=== PATIENT | female | born 1940 | race Caucasian/White ===

== ENCOUNTER 2024-06-13 12:09 | Outpatient (CLI) | payer MEDICARE, SELFPAY ==
--- NOTE | ~2024-06-13 | XR_ITS ---
EXAMINATION: XR chest 2V Exam Date/Time: 06/13/2024 12:52 CDT HISTORY: CHEST PAINS Comparison: None. RESULT: Lines, tubes, and devices: Right axillary clips. Lungs and pleura: Emphysematous/senescent changes. Azygos lobe.. Cardiomediastinal silhouette: Stable. Other: No acute upper abdominal finding. Exaggerated thoracic kyphosis. Osteopenia. Mild anterior we dge deformity, likely T12. 9 mm retrolisthesis at the thoracolumbar junction, likely L1-2. IMPRESSION: No acute cardiopulmonary process. Mild wedge compression deformity in the lower thoracic spine, likely T12, correlate for pain/tenderne ss. 9 mm retrolisthesis at the thoracolumbar junction, likely L1-2. Reviewed, dictated and finalized at [facility]. IMPRESSION: No acute cardiopulmonary process. Mild wedge compression deformity in the lower thoracic spine, likely T12, corre late for pain/tenderness. 9 mm retrolisthesis at the thoracolumbar junction, likely L1-2.
[2024-06-13 14:25] LABS: Basophils Absolute Auto 0.1 K/mm3 (0.0-0.1); Basophils Percent Auto 1.4 % (0.2-1.2); Eosinophils Absolute Auto 0.2 K/mm3 (0-0.3); Eosinophils Percent Auto 2.5 % (0-4.4); Hematocrit 41.8 % (37.0-47.0); Hemoglobin 14.1 g/dL (12.0-15.0); Immature Granulocyte Absolute 0.01 K/mm3 (0.00-0.031); Immature Granulocyte Percent A 0.1 % (0-0.5); Lymphocytes Absolute Auto 1.92 K/mm3 (0.9-3.2); Lymphocytes Percent Auto 22.6 % (18.3-44.2); Mean Corpuscular HGB Conc 33.7 g/dl (32-36); Mean Corpuscular Hemoglobin 32.6 pg (26-34); Mean Corpuscular Volume 96.5 fl (80-100); Mean Platelet Volume 9.7 fl (7.4-10.4); Monocytes Absolute Auto 0.8 K/mm3 (0.1-0.6); Monocytes Percent Auto 9.8 % (2.6-8.5); Neutrophils Absolute Auto 5.4 K/mm3 (1.3-6.7); Neutrophils Percent Auto 63.6 % (45.5-73.1); Platelet Count Result 272 k/mm3 (150-375); Red Blood Count 4.33 M/mm3 (4.2-5.4); Red Cell Distribution Width 13.1 % (11.5-14.5); White Blood Count 8.5 K/mm3 (4.5-10.0)
[2024-06-13 14:57] LABS: Alanine Aminotransferase 24 U/L (6-35); Albumin Level 4.3 g/dL (3.5-5.1); Alkaline Phosphatase 84 U/L (38-126); Anion Gap 8 mmol/L (4-12); Aspartate Amino Transferase 31 U/L (14-36); Bilirubin,Total 0.5 mg/dL (0.2-1.3); Blood Urea Nitrogen 25 mg/dL (7-17); Calcium 9.1 mg/dL (8.4-10.2); Carbon Dioxide 29 mmol/L (22-30); Chloride 102 mmol/L (98-107); Cholesterol 144 mg/dL (0-200); Estimated Glomerular Filt Rate 60; Glucose 96 mg/dL (65-110); HDL Direct 71 mg/dL; Potassium 4.3 mmol/L (3.4-5.0); Sodium 139 mmol/L (137-145); Triglycerides 68 mg/dL (<150)
[2024-06-13 15:08] LABS: LDL Cholesterol Direct 52 mg/dL
[2024-06-13 15:35] LABS: Free T4 Free Thyroxine 1.49 ng/mL (0.78-2.19)
[2024-06-14 10:59] LABS: Triiodothyronine T3 Free 3.3 pg/mL (2.3-4.2)
== END 2024-06-13 12:10 | disposition home or self-care (01) ==
PROVIDERS: PCP Internal Medicine; Visit Provider Internal Medicine
DX: R07.9 Chest pain, unspecified (principal); I10 Essential (primary) hypertension
CPT/HCPCS: 36415; 71046; 80053; 80061; 83735; 84439; 84443; 84481; 85025

== ENCOUNTER 2025-01-10 12:13 | Outpatient (CLI) | payer MEDICARE, SELFPAY ==
--- NOTE | ~2025-01-10 | XR_ITS ---
Clinical Indication: Cough PA and lateral views of the chest: Comparison: 06/13/2024 Findings: The lungs are clear, without evidence of focal consolidation or pleural effusion. Possible COPD. Cardiomediastinal silhouette is within normal limits. Bones and soft tissues are stable. Impression: Clear lungs. Possible COPD. Reviewed, dictated and finalized at location . Impression: Clear lungs. Possible COPD.
--- OUTSIDE RECORDS SUMMARY | 2025-01-10 13:38 | XMS_ITS | Data Portability ---
Author Organization [place] - [facility] Vick Chacon C Address [address] [place] [address] Care Team Providers Care Blood Bank Business Manager Name Role Phone RUEL ANDREW Primary Care Provider Assessment Encounter Date Assessment Date Assessment LastModified by Organization Details LastModified Time 02/29/2024 02/29/2024 Obtain old records continue medications if she runs into problems in the bereavement process she will let me know but again she has a very supportive family. She does not want to be is sent to counseling or anything like that she says she has all the support she needs right now and she will let me know if that changes she will follow-up with me in 3 to 4 months [email or web address] Not available 03/12/2024 17:10:35 06/06/2024 06/06/2024 EKG shows a sinus rhythm with PVCs questionable long QT no acute changes. Blood work Lexiscan echo Holter monitor follow few weeks [email or web address] Not available 06/19/2024 22:12:17 07/04/2024 07/04/2024 echo no regional wall motion abnormalities no further chest pain she does not want to pursue cardiac stress testing we will continue current therapy she will follow up in 3 months [email or web address] Not available 07/10/2024 17:33:57 10/03/2024 10/03/2024 continue current therapy we did discuss immunizations she will consider follow up in 4 months [email or web address] Not available 11/04/2024 21:09:44 Plan of Treatment Reminders Order Date Submit Date Provider Last Modified By Organization Details Last Modified Time Details Appointments ANY 15 2024 11:00Ney Andrew MD Not available Not available Not available Lab CMP, serum or plasma 2023 024 [facility], [address], [place], [address], 06/13/2024 21:27:05 CBC w/ auto diff 2023 024 [facility], [address], [place], [address], 06/13/2024 17:56:51 magnesium , serum or plasma 2023 024 [place] [address] [facility], [address], [place], [address], 06/21/2024 12:13:05 lipid panel, serum 2023 024 [email or web address], [address], [place], [address], 06/20/2024 13:48:31 TSH, serum or plasma [address] (Lab), [address] [place] [address], [phone], 06/21/2024 12:12:31 T4, free, serum 2023 024 [facility] (Lab), [address] [place] [address], [phone], 06/14/2024 12:34:25 T3, free, serum or plasma 2023 024 [facility] (Lab), [facility] [address], [address], 06/14/2024 12:16:22 Referral None recorded. Procedures lexiscan cardiolit e stress test (PROC) 2023 024 [facility], [address], [place] [address], [place], [address], 07/05/2024 09:12:38 Surgeries None recorded. Imaging US, echocardi ogram 2023 024 [place] [facility], [address], [place], [address], 06/13/2024 14:03:23 holter monitor - 2wk holter 2023 024 [email or web address] [facility], [address], [place], [address], 07/25/2024 22:41:52 XR, chest 2023 024 [facility] (Imaging), [address], [place], [address], 06/13/2024 17:34:16 electroca rdiogram 2023 024 [email or web address] In-Office Order, Internal Use Only DO Not Attach Compendium DO Not Attach Compendium, Do Not Delete/merge, [id number] 06/06/2024 17:17:21 MAMMO, screening , digital, bilateral 2016 017 [facility] ([facility]), [address] [place] [address], [address], 07/01/2017 23:23:00 Medication Orders Trulance 3 mg tablet 2016 017 [facility], [address] [place], [address], 02/29/2024 14:21:00 dicyclomi ne 10 mg capsule 2016 017 [facility], [address] [place], [address], 02/29/2024 14:20:23 Patient TargetsNo targets recorded. Patient Instructions Encounter Date Encounter Id Patient Instructions Last Modified By Organization Details Last Modified Time 02/11/2017 [id number] irritable bowel syndrome: care instructions [email or web address] Not available 02/11/2017 16:53:03 mammogram: about this test [email or web address] Not available 02/11/2017 14:43:04 mammogram screening patient instructions [email or web address] Not available 02/11/2017 14:43:04 10/03/2024 [id number] A healthy lifestyle: care instructions [email or web address] Not available 10/03/2024 14:55:00 Reason for Referral None Reported. Results Created Date Observation Date Name Description Value Unit Range Abnormal Flag Note LastModifiedBy Organization Detail LastModifiedTime 12/05/19 22 12/05/2021 CBC W Auto Diffe renti al panel - Blood hematocrit hemat ocrit Not Available Not Available 12/14/2024 13:14:39 12/05/19 22 12/05/2021 CBC W Auto Diffe renti al panel - Blood white blood cells white blood cells Not Available Not Available 12/14/2024 13:14:39 12/05/19 22 12/05/2021 CBC W Auto Diffe renti al panel - Blood red blood cells red blood cells Not Available Not Available 12/14/2024 13:14:39 12/05/19 22 12/05/2021 CBC W Auto Diffe renti al panel - Blood hemoglobin hemog lobin Not Available Not Available 12/14/2024 13:14:39 12/05/19 22 12/05/2021 CBC W Auto Diffe renti al panel - Blood mean red cell volume mean red cell volum e Not Available Not Available 12/14/2024 13:14:39 12/05/19 22 12/05/2021 CBC W Auto Diffe renti al panel - Blood mean red cell hemoglobin mean red cell hemog lobin Not Available Not Available 12/14/2024 13:14:39 12/05/19 22 12/05/2021 CBC W Auto Diffe renti al panel - Blood mean RBC HGB concentratio n mean RBC HGB estephanie ntrat ion Not Available Not Available 12/14/2024 13:14:39 12/05/19 22 12/05/2021 CBC W Auto Diffe renti al panel - Blood red cell distribution width red cell distr ibuti on width Not Available Not Available 12/14/2024 13:14:39 12/05/19 22 12/05/2021 CBC W Auto Diffe renti al panel - Blood platelets plate lets Not Available Not Available 12/14/2024 13:14:39 12/05/19 22 12/05/2021 CBC W Auto Diffe renti al panel - Blood mean platelet volume mean plate let volum e Not Available Not Available 12/14/2024 13:14:39 12/05/19 22 12/05/2021 CBC W Auto Diffe renti al panel - Blood neutrophils neutr ophil s Not Available Not Available 12/14/2024 13:14:39 12/05/19 22 12/05/2021 CBC W Auto Diffe renti al panel - Blood lymphocytes lymph ocyte s Not Available Not Available 12/14/2024 13:14:39 12/05/19 22 12/05/2021 CBC W Auto Diffe renti al panel - Blood monocytes monoc ytes Not Available Not Available 12/14/2024 13:14:39 12/05/19 22 12/05/2021 CBC W Auto Diffe renti al panel - Blood eosinophils eosin ophil s Not Available Not Available 12/14/2024 13:14:39 12/05/19 22 12/05/2021 CBC W Auto Diffe renti al panel - Blood basophils basop hils Not Available Not Available 12/14/2024 13:14:39 12/05/19 22 12/05/2021 CBC W Auto Diffe renti al panel - Blood immature granulocytes immat ure granu locyt es Not Available Not Available 12/14/2024 13:14:39 12/05/19 22 12/05/2021 CBC W Auto Diffe renti al panel - Blood neutrophils, absolute count neutr ophil s, absol [place] count Not Available Not Available 12/14/2024 13:14:39 12/05/19 22 12/05/2021 CBC W Auto Diffe renti al panel - Blood lymphocytes, absolute count lymph ocyte s, absol tohono [place] count Not Available Not Available 12/14/2024 13:14:39 12/05/19 22 12/05/2021 CBC W Auto Diffe renti al panel - Blood monocytes, absolute count monoc ytes, absol tohono [place] count Not Available Not Available 12/14/2024 13:14:39 12/05/19 22 12/05/2021 CBC W Auto Diffe renti al panel - Blood eosinophils, absolute count eosin ophil s, absol tohono [place] count Not Available Not Available 12/14/2024 13:14:39 12/05/19 22 12/05/2021 CBC W Auto Diffe renti al panel - Blood basophils, absolute count high basop hils, absol [place] count Not Available Not Available 12/14/2024 13:14:39 12/05/19 22 12/05/2021 CBC W Auto Diffe renti al panel - Blood immature granulocytes ,absolute immat ure granu locyt es,ab solut e Not Available Not Available 12/14/2024 13:14:39 12/05/19 22 12/05/2021 CBC W Auto Diffe renti al panel - Blood nucleated red blood cells nucle ated red blood cells Not Available Not Available 12/14/2024 13:14:39 12/05/19 22 12/05/2021 CBC W Auto Diffe renti al panel - Blood NRBC# NRBC# Not Available Not Availa ble 12/14/2024 13:14:39 12/05/19 22 12/05/2021 25-Hy droxy vitam in D3+25 -Hydr oxyvi tamin D2 [Mass /volu me] in Serum or Plasm a [id number] h Not Available Not Available 12/14/2024 13:14:38 12/05/19 22 12/05/2021 Lipid 1995 panel - Serum or Plasm a cholesterol high jose stero l Not Available Not Available 12/14/2024 13:14:38 12/05/19 22 12/05/2021 Lipid 1996 panel - Serum or Plasm a triglyceride s trigl yceri mei Not Available Not Available 12/14/2024 13:14:38 12/05/19 22 12/05/2021 Lipid 1995 panel - Serum or Plasm a HDL cholesterol HDL jose stero l Not Available Not Available 12/14/2024 13:14:38 12/05/19 22 12/05/2021 Lipid 1995 panel - Serum or Plasm a cholesterol in LDL [mass/volume ] in serum or plasma high LDL jose stero l, calcu lated Not Available Not Available 12/14/2024 13:14:38 12/05/19 22 12/05/2021 Compr ehens fredis metab olic 1999 panel - Serum or Plasm a carbon dioxide carbo n dioxi de Not Available Not Available 12/14/2024 13:14:38 12/05/19 22 12/05/2021 Compr ehens fredis metab olic 2000 panel - Serum or Plasm a sodium low sodiu m Not Available Not Available 12/14/2024 13:14:38 12/05/19 22 12/05/2021 Compr ehens fredis metab olic 2000 panel - Serum or Plasm a potassium potas sium Not Available Not Available 12/14/2024 13:14:38 12/05/19 22 12/05/2021 Compr ehens fredis metab olic 1999 panel - Serum or Plasm a chloride chlor jany Not Available Not Available 12/14/2024 13:14:38 12/05/19 22 12/05/2021 Compr ehens fredis metab olic 2000 panel - Serum or Plasm a agap low agap Not Available Not Availa ble 12/14/2024 13:14:38 12/05/19 22 12/05/2021 Compr ehens fredis metab olic 2000 panel - Serum or Plasm a glucose high gluco se Not Available Not Available 12/14/2024 13:14:38 12/05/19 22 12/05/2021 Compr ehens fredis metab olic 2000 panel - Serum or Plasm a BUN BUN Not Available Not Availa ble 12/14/2024 13:14:38 12/05/19 22 12/05/2021 Compr ehens fredis metab olic 2000 panel - Serum or Plasm a creatinine creat inine Not Available Not Available 12/14/2024 13:14:38 12/05/19 22 12/05/2021 Compr ehens fredis metab olic 2000 panel - Serum or Plasm a GFR >60 GFR Not Available Not Availa ble 12/14/2024 13:14:38 12/05/19 22 12/05/2021 Compr ehens fredis metab olic 2000 panel - Serum or Plasm a alkaline phosphatase alkal ine phosp hatas e Not Available Not Available 12/14/2024 13:14:38 12/05/19 22 12/05/2021 Compr ehens fredis metab olic 2000 panel - Serum or Plasm a alanine aminotransfe rase herbert ne amino trans feras e Not Available Not Available 12/14/2024 13:14:38 12/05/19 22 12/05/2021 [facility] 1999 panel - Serum or Plasm a aspartate aminotransfe rase aspar sullivan amino trans feras e Not Available Not Available 12/14/2024 13:14:38 12/05/19 22 12/05/2021 [facility] 1999 panel - Serum or Plasm a bilirubin, total bilir ubin, total Not Available Not Available 12/14/2024 13:14:38 12/05/19 22 12/05/2021 [facility] 1999 panel - Serum or Plasm a calcium calci um Not Available Not Available 12/14/2024 13:14:38 12/05/19 22 12/05/2021 [facility] 1999 panel - Serum or Plasm a total protein total prote in Not Available Not Available 12/14/2024 13:14:38 12/05/19 22 12/05/2021 [facility] 1999 panel - Serum or Plasm a albumin album in Not Available Not Available 12/14/2024 13:14:38 12/05/19 22 12/05/2021 [facility] 2000 panel - Serum or Plasm a globulin globu amie Not Available Not Available 12/14/2024 13:14:38 12/05/19 22 12/05/2021 [facility] 1999 panel - Serum or Plasm a A/G ratio A/G ratio Not Available Not Available 12/14/2024 13:14:38 06/03/20 22 06/03/2022 CBC W Auto Diffe renti al panel - Blood hematocrit hemat ocrit Not Available Not Available 12/14/2024 13:14:39 06/03/20 22 06/03/2022 CBC W Auto Diffe renti al panel - Blood white blood cells white blood cells Not Available Not Available 12/14/2024 13:14:39 06/03/20 22 06/03/2022 CBC W Auto Diffe renti al panel - Blood red blood cells red blood cells Not Available Not Available 12/14/2024 13:14:39 06/03/20 22 06/03/2022 CBC W Auto Diffe renti al panel - Blood hemoglobin hemog lobin Not Available Not Available 12/14/2024 13:14:39 06/03/20 22 06/03/2022 CBC W Auto Diffe renti al panel - Blood mean red cell volume mean red cell volum e Not Available Not Available 12/14/2024 13:14:39 06/03/20 22 06/03/2022 CBC W Auto Diffe renti al panel - Blood mean red cell hemoglobin mean red cell hemog lobin Not Available Not Available 12/14/2024 13:14:39 06/03/20 22 06/03/2022 CBC W Auto Diffe renti al panel - Blood mean platelet volume mean plate let volum e Not Available Not Available 12/14/2024 13:14:39 06/03/20 22 06/03/2022 CBC W Auto Diffe renti al panel - Blood mean RBC HGB concentratio n mean RBC HGB estephanie ntrat ion Not Available Not Available 12/14/2024 13:14:39 06/03/20 22 06/03/2022 CBC W Auto Diffe renti al panel - Blood red cell distribution width red cell distr ibuti on width Not Available Not Available 12/14/2024 13:14:39 06/03/20 22 06/03/2022 CBC W Auto Diffe renti al panel - Blood platelets plate lets Not Available Not Available 12/14/2024 13:14:39 06/03/20 22 06/03/2022 CBC W Auto Diffe renti al panel - Blood neutrophils neutr ophil s Not Available Not Available 12/14/2024 13:14:39 06/03/20 22 06/03/2022 CBC W Auto Diffe renti al panel - Blood lymphocytes lymph ocyte s Not Available Not Available 12/14/2024 13:14:39 06/03/20 22 06/03/2022 CBC W Auto Diffe renti al panel - Blood monocytes monoc ytes Not Available Not Available 12/14/2024 13:14:39 06/03/20 22 06/03/2022 CBC W Auto Diffe renti al panel - Blood eosinophils eosin ophil s Not Available Not Available 12/14/2024 13:14:39 06/03/20 22 06/03/2022 CBC W Auto Diffe renti al panel - Blood basophils basop hils Not Available Not Available 12/14/2024 13:14:39 06/03/20 22 06/03/2022 CBC W Auto Diffe renti al panel - Blood immature granulocytes immat ure granu locyt es Not Available Not Available 12/14/2024 13:14:39 06/03/20 22 06/03/2022 CBC W Auto Diffe renti al panel - Blood neutrophils, absolute count neutr ophil s, absol [place] count Not Available Not Available 12/14/2024 13:14:39 06/03/20 22 06/03/2022 CBC W Auto Diffe renti al panel - Blood lymphocytes, absolute count lymph ocyte s, absol tohono [place] count Not Available Not Available 12/14/2024 13:14:39 06/03/20 22 06/03/2022 CBC W Auto Diffe renti al panel - Blood monocytes, absolute count monoc ytes, absol tohono [place] count Not Available Not Available 12/14/2024 13:14:39 06/03/20 22 06/03/2022 CBC W Auto Diffe renti al panel - Blood eosinophils, absolute count eosin ophil s, absol [place] count Not Available Not Available 12/14/2024 13:14:39 06/03/20 22 06/03/2022 CBC W Auto Diffe renti al panel - Blood basophils, absolute count high basop hils, absol [place] count Not Available Not Available 12/14/2024 13:14:39 06/03/20 22 06/03/2022 CBC W Auto Diffe renti al panel - Blood immature granulocytes ,absolute immat ure granu locyt es,ab solut e Not Available Not Available 12/14/2024 13:14:39 06/03/20 22 06/03/2022 CBC W Auto Diffe renti al panel - Blood nucleated red blood cells nucle ated red blood cells Not Available Not Available 12/14/2024 13:14:39 06/03/20 22 06/03/2022 CBC W Auto Diffe renti al panel - Blood NRBC# NRBC# Not Available Not Availa ble 12/14/2024 13:14:39 08/09/20 22 06/03/2022 Compr ehens fredis metab olic 2000 panel - Serum or Plasm a GFR >60 GFR Not Available Not Availa ble 12/14/2024 13:14:39 06/03/20 22 06/03/2022 Compr ehens fredis metab olic 2000 panel - Serum or Plasm a sodium sodiu m Not Available Not Available 12/14/2024 13:14:39 06/03/20 22 06/03/2022 Compr ehens fredis metab olic 2000 panel - Serum or Plasm a potassium potas sium Not Available Not Available 12/14/2024 13:14:39 06/03/20 22 06/03/2022 Compr ehens fredis metab olic 2000 panel - Serum or Plasm a chloride chlor jany Not Available Not Available 12/14/2024 13:14:39 06/03/20 22 06/03/2022 Compr ehens fredis metab olic 2000 panel - Serum or Plasm a carbon dioxide carbo n dioxi de Not Available Not Available 12/14/2024 13:14:39 06/03/20 22 06/03/2022 Compr ehens fredis metab olic 2000 panel - Serum or Plasm a anion gap anion gap Not Available Not Available 12/14/2024 13:14:39 06/03/20 22 06/03/2022 Compr ehens fredis metab olic 2000 panel - Serum or Plasm a glucose high gluco se Not Available Not Available 12/14/2024 13:14:39 06/03/20 22 06/03/2022 Compr ehens fredis metab olic 2000 panel - Serum or Plasm a BUN BUN Not Available Not Availa ble 12/14/2024 13:14:39 06/03/20 22 06/03/2022 Compr ehens fredis metab olic 2000 panel - Serum or Plasm a creatinine creat inine Not Available Not Available 12/14/2024 13:14:39 06/03/20 22 06/03/2022 Compr ehens fredis metab olic 2000 panel - Serum or Plasm a alkaline phosphatase alkal ine phosp hatas e Not Available Not Available 12/14/2024 13:14:39 06/03/20 22 06/03/2022 Compr ehens fredis metab olic 2000 panel - Serum or Plasm a alanine aminotransfe rase herbert ne amino trans feras e Not Available Not Available 12/14/2024 13:14:39 06/03/20 22 06/03/2022 [facility] 2000 panel - Serum or Plasm a aspartate aminotransfe rase aspar sullivan amino trans feras e Not Available Not Available 12/14/2024 13:14:39 06/03/20 22 06/03/2022 [facility] [place] [id number] panel - Serum or Plasm a bilirubin, total bilir ubin, total Not Available Not Available 12/14/2024 13:14:39 06/03/20 22 06/03/2022 [facility] [place] [id number] panel - Serum or Plasm a calcium calci um Not Available Not Available 12/14/2024 13:14:39 06/03/20 22 06/03/2022 [place] [address] panel - Serum or Plasm a total protein total prote in Not Available Not Available 12/14/2024 13:14:39 06/03/20 22 06/03/2022 [place] [address] panel - Serum or Plasm a albumin album in Not Available Not Available 12/14/2024 13:14:39 06/03/20 22 06/03/2022 [facility] [place] [id number] panel - Serum or Plasm a globulin globu amie Not Available Not Available 12/14/2024 13:14:39 06/03/20 22 06/03/2022 [place] [address] panel - Serum or Plasm a A/G ratio A/G ratio Not Available Not Available 12/14/2024 13:14:39 06/03/20 22 06/03/2022 Lipid 1995 panel - Serum or Plasm a cholesterol low jose stero l Not Available Not Available 12/14/2024 13:14:39 06/03/20 22 06/03/2022 Lipid 1996 panel - Serum or Plasm a triglyceride s trigl yceri mei Not Available Not Available 12/14/2024 13:14:39 06/03/20 22 06/03/2022 Lipid 1996 panel - Serum or Plasm a HDL cholesterol HDL jose stero l Not Available Not Available 12/14/2024 13:14:39 06/03/20 22 06/03/2022 Lipid 1996 panel - Serum or Plasm a cholesterol in LDL [mass/volume ] in serum or plasma LDL jose stero l, calcu lated Not Available Not Available 12/14/2024 13:14:39 05/28/20 23 05/28/2023 Compr ehens fredis metab olic 1999 panel - Serum or Plasm a sodium sodiu m Not Available Not Available 12/14/2024 13:14:39 05/28/20 23 05/28/2023 Compr ehens fredis metab olic 2000 panel - Serum or Plasm a potassium potas sium Not Available Not Available 12/14/2024 13:14:39 05/28/20 23 05/28/2023 Compr ehens fredis metab olic 2000 panel - Serum or Plasm a chloride chlor jany Not Available Not Available 12/14/2024 13:14:39 05/28/20 23 05/28/2023 Compr ehens fredis metab olic 2000 panel - Serum or Plasm a carbon dioxide carbo n dioxi de Not Available Not Available 12/14/2024 13:14:39 05/28/20 23 05/28/2023 Compr ehens fredis metab olic 2000 panel - Serum or Plasm a anion gap low anion gap Not Available Not Available 12/14/2024 13:14:39 05/28/20 23 05/28/2023 Compr ehens fredis metab olic 2000 panel - Serum or Plasm a glucose high gluco se Not Available Not Available 12/14/2024 13:14:39 05/28/20 23 05/28/2023 Compr ehens fredis metab olic 2000 panel - Serum or Plasm a BUN BUN Not Available Not Availa ble 12/14/2024 13:14:39 05/28/20 23 05/28/2023 Compr ehens fredis metab olic 2000 panel - Serum or Plasm a creatinine creat inine Not Available Not Available 12/14/2024 13:14:39 05/28/20 23 05/28/2023 Compr ehens fredis metab olic 2000 panel - Serum or Plasm a GFR >60 GFR Not Available Not Availa ble 12/14/2024 13:14:39 05/28/20 23 05/28/2023 Compr ehens fredis metab olic 2000 panel - Serum or Plasm a alkaline phosphatase alkal ine phosp hatas e Not Available Not Available 12/14/2024 13:14:39 05/28/20 23 05/28/2023 Compr ens fredis metab [facility] 2000 panel - Serum or Plasm a alanine aminotransfe rase herbert ne amino trans feras e Not Available Not Available 12/14/2024 13:14:39 05/28/20 23 05/28/2023 Compr ens fredis metab [facility] 2000 panel - Serum or Plasm a aspartate aminotransfe rase aspar sullivan amino trans feras e Not Available Not Available 12/14/2024 13:14:39 05/28/20 23 05/28/2023 [facility] 2000 panel - Serum or Plasm a bilirubin, total bilir ubin, total Not Available Not Available 12/14/2024 13:14:39 05/28/20 23 05/28/2023 Compr ens fredis metab [facility] 2000 panel - Serum or Plasm a calcium calci um Not Available Not Available 12/14/2024 13:14:39 05/28/20 23 05/28/2023 Compr ens fredis metab [facility] 2000 panel - Serum or Plasm a total protein total prote in Not Available Not Available 12/14/2024 13:14:39 05/28/20 23 05/28/2023 [facility] 2000 panel - Serum or Plasm a albumin album in Not Available Not Available 12/14/2024 13:14:39 05/28/20 23 05/28/2023 Compr ens [facility]red[facility] 2000 panel - Serum or Plasm a globulin globu amie Not Available Not Available 12/14/2024 13:14:39 05/28/20 23 05/28/2023 Compr ens fredis metab [facility] 2000 panel - Serum or Plasm a A/G ratio A/G ratio Not Available Not Available 12/14/2024 13:14:39 05/28/20 23 05/28/2023 Lipid 1996 panel - Serum or Plasm a cholesterol jose stero l Not Available Not Available 12/14/2024 13:14:39 05/28/20 23 05/28/2023 Lipid 1996 panel - Serum or Plasm a triglyceride s trigl yceri mei Not Available Not Available 12/14/2024 13:14:39 05/28/20 23 05/28/2023 Lipid 1995 panel - Serum or Plasm a HDL cholesterol HDL jose stero l Not Available Not Available 12/14/2024 13:14:39 05/28/20 23 05/28/2023 Lipid 1995 panel - Serum or Plasm a cholesterol in LDL [mass/volume ] in serum or plasma LDL jose stero l, calcu lated Not Available Not Available 12/14/2024 13:14:39 05/28/20 23 05/28/2023 CBC W Auto Diffe renti al panel - Blood white blood cells white blood cells Not Available Not Available 12/14/2024 13:14:39 05/28/20 23 05/28/2023 CBC W Auto Diffe renti al panel - Blood red blood cells red blood cells Not Available Not Available 12/14/2024 13:14:39 05/28/20 23 05/28/2023 CBC W Auto Diffe renti al panel - Blood hemoglobin hemog lobin Not Available Not Available 12/14/2024 13:14:39 05/28/20 23 05/28/2023 CBC W Auto Diffe renti al panel - Blood hematocrit hemat ocrit Not Available Not Available 12/14/2024 13:14:39 05/28/20 23 05/28/2023 CBC W Auto Diffe renti al panel - Blood mean red cell volume mean red cell volum e Not Available Not Available 12/14/2024 13:14:39 05/28/20 23 05/28/2023 CBC W Auto Diffe renti al panel - Blood mean red cell hemoglobin mean red cell hemog lobin Not Available Not Available 12/14/2024 13:14:39 05/28/20 23 05/28/2023 CBC W Auto Diffe renti al panel - Blood mean RBC HGB concentratio n mean RBC HGB estephanie ntrat ion Not Available Not Available 12/14/2024 13:14:39 05/28/20 23 05/28/2023 CBC W Auto Diffe renti al panel - Blood red cell distribution width red cell distr ibuti on width Not Available Not Available 12/14/2024 13:14:39 05/28/20 23 05/28/2023 CBC W Auto Diffe renti al panel - Blood platelets plate lets Not Available Not Available 12/14/2024 13:14:39 05/28/20 23 05/28/2023 CBC W Auto Diffe renti al panel - Blood mean platelet volume mean plate let volum e Not Available Not Available 12/14/2024 13:14:39 05/28/20 23 05/28/2023 CBC W Auto Diffe renti al panel - Blood neutrophils neutr ophil s Not Available Not Available 12/14/2024 13:14:39 05/28/20 23 05/28/2023 CBC W Auto Diffe renti al panel - Blood lymphocytes lymph ocyte s Not Available Not Available 12/14/2024 13:14:39 05/28/20 23 05/28/2023 CBC W Auto Diffe renti al panel - Blood monocytes monoc ytes Not Available Not Available 12/14/2024 13:14:39 05/28/20 23 05/28/2023 CBC W Auto Diffe renti al panel - Blood eosinophils eosin ophil s Not Available Not Available 12/14/2024 13:14:39 05/28/20 23 05/28/2023 CBC W Auto Diffe renti al panel - Blood basophils basop hils Not Available Not Available 12/14/2024 13:14:39 05/28/20 23 05/28/2023 CBC W Auto Diffe renti al panel - Blood immature granulocytes immat ure granu locyt es Not Available Not Available 12/14/2024 13:14:39 05/28/20 23 05/28/2023 CBC W Auto Diffe renti al panel - Blood neutrophils, absolute count neutr ophil s, absol [place] count Not Available Not Available 12/14/2024 13:14:39 05/28/20 23 05/28/2023 CBC W Auto Diffe renti al panel - Blood lymphocytes, absolute count lymph ocyte s, absol [place] count Not Available Not Available 12/14/2024 13:14:39 05/28/20 23 05/28/2023 CBC W Auto Diffe renti al panel - Blood monocytes, absolute count monoc ytes, absol [place] count Not Available Not Available 12/14/2024 13:14:39 05/28/20 23 05/28/2023 CBC W Auto Diffe renti al panel - Blood eosinophils, absolute count eosin ophil s, absol [place] count Not Available Not Available 12/14/2024 13:14:39 05/28/20 23 05/28/2023 CBC W Auto Diffe renti al panel - Blood basophils, absolute count high basop hils, absol [place] count Not Available Not Available 12/14/2024 13:14:39 05/28/20 23 05/28/2023 CBC W Auto Diffe renti al panel - Blood immature granulocytes ,absolute immat ure granu locyt es,ab solut e Not Available Not Available 12/14/2024 13:14:39 05/28/20 23 05/28/2023 CBC W Auto Diffe renti al panel - Blood nucleated red blood cells nucle ated red blood cells Not Available Not Available 12/14/2024 13:14:39 05/28/20 23 05/28/2023 CBC W Auto Diffe renti al panel - Blood NRBC# NRBC# Not Available Not Availa ble 12/14/2024 13:14:39 07/01/20 17 07/01/2017 MAMMO , scree delio, digit al, bilat eral No observ ation record ed. [email or web address] Not Available 08/13 11:32:31 06/06/20 24 elect rocar diogr am No observ ation record ed. DEL[facility]Y In-Office Order Internal Use Only DO Not Attach Compendium DO Not Attach Compendium, Do Not Delete/merge, [id number] 06/06/2024 14:44:48 06/06/20 24 06/06/2024 [facility] rocar diogr am No observ ation record ed. DELROY In-Office Order Internal Use Only DO Not Attach Compendium DO Not Attach Compendium, Do Not Delete/merge, [id number] 06/06/2024 14:56:29 06/13/20 24 06/13/2024 , [facility] ardio gram No observ ation record ed. [facility] [address], [place], [address], 06/17/2024 11:30:01 06/13/20 24 06/13/2024 XR, chest No observ ation record ed. [facility] [address], [place], [address], 06/17/2024 11:30:02 06/13/20 24 06/13/2024 XR, chest No observ ation record ed. [facility] [address], [place], [address], 06/17/2024 11:30:03 07/25/20 24 06/13/2024 jan r monit or No observ ation record ed. [facility] [address], [place], [address], 07/25/2024 12:17:02 01/11/20 25 01/10/2025 XR, chest No observ ation record ed. [facility] [address] [facility] [address], [place], [address], 01/10/2025 14:08:55 Result Notes None recorded. Problems Name Problem SNOMED Code Status Onset Date Resolution Date Notes Provider Name and Address Organization Details Recorded Time Atrophic vaginitis 79317822 Active Pj Montez null, [place] - [facility] 6 16:26:10 Menopausal syndrome 633394090 Active Pj [place]z [place] [facility] 6 16:26:10 Osteopenia 475066058 Active Pj Montez [place] [facility] 6 16:26:10 Essential hypertension 69173504 Active 2023 Ruel Andrew MD Attn: John dejesus,[address] [facility], [place], [address], [place] - [facility] 4 17:09:56 Anxiety 47726362 Active 2023 Ruel Andrew MD Attn: John dejesus,[address] [facility], [place], [address], [place] [facility] 4 17:09:57 Insomnia 435942224 Active 2023 Ruel Andrew MD Attn: John dejesus,[address] [facility], [place], [address], [place] - [facility] 4 17:09:58 Dyslipidemia 242040556 Active 2023 Ruel Andrew MD Attn: John dejesus,[address] , [place], [address], [place] - [facility] 4 17:10:01 Chronic rhinitis 01447429 Active 2023 Ruel Andrew MD Attn: John dejesus,[address] , [place], [address], [place] - [facility] 4 17:10:02 Palpitations 80439680 Active 2023 Jose George [place] null, [place] [facility] 4 14:44:14 Chest pain 79329041 Active 2023 Jose George [place] [facility] 4 14:44:15 Chronic constipation 837375900 Active Maggie Emery LPN [place] [facility] 6 16:29:42 Problem Notes None recorded. Procedures Surgical History Date Name Laterality Status Provider Name and Address Organization Details Recorded Time 3 Most Recent Mammogram completed Bella Price [place] [facility] 02/13/2016 11:47:55 1 Date of Last Pap Smear completed Bella Price [place] [facility] 11/28/2014 13:27:59 2 Breast Surgery completed Brianna Monaco [place] - [facility] 02/13/2016 12:04:32 Imaging Results Imaging Date Name Status LastModified by Organization Details LastModified Time 07/01/2017 MAMMO, screening, digital, bilateral completed [email or web address] Information not available 08/13/2017 11:32:31 06/06/2024 electrocardiogram completed DELROY In-Offi ce Order Internal Use Only DO Not Attach Compendium DO Not Attach Compendium, Do Not Delete/merge, [id number] 06/06/2024 14:44:48 06/06/2024 electrocardiogram completed DELROY In-Offi ce Order Internal Use Only DO Not Attach Compendium DO Not Attach Compendium, Do Not Delete/merge, [id number] 06/06/2024 14:56:29 06/13/2024 US, echocardiogram completed [facility] [address], [place], [address], 06/17/2024 11:30:01 06/13/2024 XR, chest completed [facility] [address] [facility] [address], [place], [address], 06/17/2024 11:30:02 06/13/2024 XR, chest completed [facility] [address], [place], [address], 06/17/2024 11:30:03 06/13/2024 holter monitor completed [facility] [address], [place], [address], 07/25/2024 12:17:02 01/10/2025 XR, chest active [facility] [address], [place], [address], 01/10/2025 14:08:55 Procedure Notes None recorded. Medical Equipment None Reported. Allergies Allergen ID Allergen Name Allergen Category Reaction Reaction Severity Criticality Documentation Date Start Date Code Code System Note Provider Name and Address Organization Details Recorded Time Substance with sulfonami de structure and antibacte rial mechanism of action (substanc e) medicatio n hives severe Not available 11/28/2014 [id number] SNOMED Not Available Not Available Not Available Medications Name Sig Start Date Stop Date Status Note LastModified by Organization Details LastModified Time hydrocodone 7.5 mg-ibuprofe n 200 mg tablet 02/11 completed Not Available Not Available Not Available trazodone 50 mg tablet Take 1 tablet by mouth nightly 2024 active Not Available Not Available Not Avai lable azithromyci n 250 mg tablet Take 1 dose pk by oral route as directed. 01/06 completed Not Available Not Available Not Available hydrocodone 5 mg-acetamin ophen 325 mg tablet TAKE 1 TABLET BY MOUTH ONCE DAILY NEEDED FOR PAIN 02/28 completed Not Available Not Available Not Available lisinopril 20 mg tablet TAKE 1 TABLET BY MOUTH IN THE MORNING AND 1/2 (ONE-HALF ) IN THE EVENING 2024 active Not Available Not Available Not Avai lable prednisone 20 mg tablet Take 2 tablets every day by oral route for 5 days. active Not Available Not Available No t Available ciprofloxac in 250 mg tablet TAKE 1 TABLET BY MOUTH TWICE DAILY FOR 7 DAYS 02/28 completed Not Available Not Available Not Available amlodipine 5 mg tablet Take 1 tablet by mouth once daily 2024 active Not Available Not Available Not Avai lable ciprofloxac in 500 mg tablet 02/11 completed Not Available Not Available Not Available alprazolam 0.5 mg tablet TAKE 1 TABLET BY MOUTH THREE TIMES DAILY 2024 active Not Available Not Available Not Avai lable Fosamax 70 mg tablet Take 1 tablet every week by oral route. 02/11 completed Not Available Not Available Not Available diclofenac sodium 75 mg tablet,izabel yed release 02/11 completed Not Available Not Available Not Available montelukast 10 mg tablet Take 1 tablet by mouth once daily 2024 active Not Available Not Available Not Avai lable cefuroxime axetil 500 mg tablet 02/11 completed Not Available Not Available Not Available methylpredn isolone 4 mg tablets in a dose pack 02/11 completed Not Available Not Available Not Available albuterol sulfate HFA 90 mcg/actuati on aerosol inhaler Inhale 2 puffs every 4 hours by inhalatio n route as needed, for wheezing. active Not Available Not Available No t Available cefdinir 300 mg capsule 02/11 completed Not Available Not Available Not Available fluticasone propionate 50 mcg/actuati on nasal spray,suspe nsion 02/11 completed Not Available Not Available Not Available dicyclomine 10 mg capsule Take 1 capsule 3 times a day by oral route as needed. 02/28 completed Not Available Not Available Not Available Estrace 0.01% (0.1 mg/gram) vaginal cream Insert 1 g twice a week by vaginal route. 02/11 completed Not Available Not Available Not Available rosuvastati n 10 mg tablet Take 1 tablet by mouth once daily 2024 active Not Available Not Available Not Avai lable nitrofurant oin monohydrate /macrocryst als 100 mg capsule 02/11 completed Not Available Not Available Not Available Zostavax (PF) 19,400 unit/0.65 mL subcutaneou s suspension 02/11 completed Not Available Not Available Not Available Linzess 145 mcg capsule Take 1 capsule every day by oral route for 30 days. 02/11 completed Not Available Not Available Not Available Caltrate plus D 600 mg (carbonate) -20 mcg (800 unit) chewable tablet Take 1 tablet twice a day by oral route. 02/28 completed Not Available Not Available Not Available Trulance 3 mg tablet Take 1 tablet every day by oral route. 02/28 completed Not Available Not Available Not Available Paxlovid 300 mg (150 mg x 2)-100 mg tablets in a dose pack TAKE 3 TABLETS TOGETHER (TWO 150 MG NIRMATREL VIR TABLETS AND ONE 100 MG RITONAVIR TABLET) BY MOUTH TWICE DAILY FOR 5 DAYS. 02/28 completed Not Available Not Available Not Available Vitals Date Recorded Body height Body mass index (BMI) Body weight Heart rate Oxygen saturation Oxygen saturation in Arterial blood by Pulse oximetry Systolic blood pressure Diastolic blood pressure Provider Name and Address Organization Details Last Updated DateTime 4 156.21 cm 26.4 kg/m2 57108.4 8 g 81 /min 98 % 98 % 124 mm[Hg] 72 mm[Hg] Marianna Rodriguez [place] - [facility] 4 14:26:01 Date Recorded Body height Body mass index (BMI) Body weight Heart rate Oxygen saturation Oxygen saturation in Arterial blood by Pulse oximetry Systolic blood pressure Diastolic blood pressure Provider Name and Address Organization Details Last Updated DateTime 4 156.21 cm 27.2 kg/m2 87218.9 2 g 105 /min 96 % 96 % 104 mm[Hg] 80 mm[Hg] Mariya Simmons [place] - [facility] 4 12:23:47 Date Recorded Body height Body mass index (BMI) Body weight Heart rate Oxygen saturation Oxygen saturation in Arterial blood by Pulse oximetry Systolic blood pressure Diastolic blood pressure Provider Name and Address Organization Details Last Updated DateTime 4 156.21 cm 27.9 kg/m2 72982.1 4 g 89 /min 99 % 99 % 126 mm[Hg] 78 mm[Hg] Mariya Iris MELONY [facility] 4 12:08:54 Date Recorded Body height Body mass index (BMI) Body weight Heart rate Oxygen saturation Oxygen saturation in Arterial blood by Pulse oximetry Systolic blood pressure Diastolic blood pressure Provider Name and Address Organization Details Last Updated DateTime 4 156.21 cm 27.8 kg/m2 01051.7 g 91 /min 97 % 97 % 118 mm[Hg] 70 mm[Hg] Sandra Ibarra MA [facility] 4 11:52:36 Date Recorded Body height Body weight Body mass index (BMI) Provider Name and Address Organization Details Last Updated DateTime 02/11/2017 157.48 cm 36571.45 g 27.6 kg/m2 Brianna MELONY Monaco [facility] 02/11/2017 12:32:05 Social History Question Answer Notes LastModified by Organizat ion Details LastModified Time Tobacco Smoking Status Never Smoker Bella MELONY Price [facility] 11/28/2014 13:27:58 Do You Have An Advance Directive? No Information n ot available 11/28/2014 What Is Your Level Of Alcohol Consumption? None Information not available 11/28/2014 Are You Blind Or Do You Have Difficulty Seeing? No Information n ot available 02/29/2024 Is Blood Transfusion Acceptable In An Emergency? Yes Information not available 11/28/2014 What Is Your Level Of Caffeine Consumption? Occasional Information not available 11/28/2014 How Much Tobacco Do You Chew? None Information not available 11/28/2014 In The 14 Days Before Symptom Onset, Have You Had Close Contact With A Laboratory-confirm ed COVID-19 While That Case Was Ill? No Information n ot available 10/03/2024 In The 14 Days Before Symptom Onset, Have You Had Close Contact With A Person Who Is Under Investigation For COVID-19 While That Person Was Ill? No Information not available 10/03/2024 Have You Been To An Area Known To Be High Risk For COVID-19? No Information not available 10/03/2024 Are You Currently Employed? No Information not available 11/28/2014 Are You Deaf Or Do You Have Serious Difficulty Hearing? Yes Information not available 02/29/2024 What Type Of Diet Are You Following? REGULAR Information n ot available 11/28/2014 Which Illicit Or Recreational Drugs Have You Used? Denies Information not available 02/13/2016 Education 10 Information no t available 11/28/2014 Are There Any Guns Present In Your Home? No Information not available 06/06/2024 Live Alone Or With Others? With Others Information not available 11/28/2014 What Was The Date Of Your Most Recent Tobacco Screening? 10/03/2024 Information not available 10/03/2024 How Many Children Do You Have? 4 Information not available 11/28/2014 Performs Monthly Self-breast Exam? Yes Information no t available 11/28/2014 What Is Your Relationship Status? Information not available 02/29/2024 Seat Belts Used Routinely Yes Information not available 11/28/2014 Are You Sexually Active? No Information not available 11/28/2014 Do You Have Smoke And Carbon Monoxide Detectors In Your Home? Yes Information not available 06/06/2024 How Much Tobacco Do You Smoke? No Information not available 11/28/2014 General Stress Level Low Information not available 11/28/2014 Do You Feel Stressed (tense, Restless, Nervous, Or Anxious, Or Unable To Sleep At Night)? [id number] Information not available 02/29/2024 Do You Use Any Illicit Or Recreational Drugs? No Information not available 10/03/2024 Do You Use Sunscreen Routinely? Yes Information not available 11/28/2014 How Many Years Have You Smoked Tobacco? 0 [email or web address] Information not available 02/13/2016 Sex: Female Functional Status Question Answer Note LastModified by Organizat ion Details LastModified Time Are you able to care for yourself? Yes Information not available 02/29/2024 What is your exercise level? Occasional Information not available 11/28/2014 Mental Status None recorded. Family History Relationship Description Onset Age of this Age Resolved Age Notes LastModified by Organization Details LastModified Time Mother Malignant neoplasm of female breast 75 [email or web address] Not available 02/12 16:26:16 Sister Malignant neoplasm of female breast 76 [email or web address] Not available 2023 17:16:16 Medical History Condition Response Other N High Blood Pressure N Breast Cancer Y Thyroid Problems N Kidney or Bladder Problems N GI Problems N Depression N Blood Clots N Lung Disease N Acne N Breast Problem N Eating Disorder N Anemia N Anesthesia Complications N Headaches/Migraines N Anxiety Disorder N Diabetes N Ovarian Cancer N Muscle, Joint, or Bone Problems N Blood Transfusions N Seizures/Epilepsy N Polyps N Infertility N Acid Reflux (GERD) N Cancer Y Abuse/Domestic Violence N Asthma N Endometriosis N High Cholesterol N Hepatitis N Liver Disease N Heart Disease N Pre-Eclampsia N Osteoporosis N Gynecological History Statement/Question Response Abnormal Pap N On BCP's at Conception? N STIs/STDs Y HPV Vaccine N Most Recent Mammogram 09/06/2013 Age at Menarche 14 Current Control Method None Age at First Child 19 If Post Menopausal, Age at Menopause 53 Sexually Active? N Menses Monthly N Date of Last Pap Smear 07/16/2011 Sexual Problems? Y LMP Approximate Desired Control Method None Obstetrics History GPAL:G 4 P 4 0 0 4 Type Value Full Term 4 Living 4 Total 4 Past Encounters Encounter ID Performer Location Encounter Start Date Encounter Closed Date Diagnosis/Indication Diagnosis SNOMED-CT Code Diagnosis ICD10 Code Diagnosis Note [id number] JONATHAN Banegas ([employer] MANAGER) [address] [place] [address] 11/28/2014 12:50:52 11/28/2014 14:25:42 Gynecologic examination 72165001 Atrophic vaginitis 10308710 Menopausal syndrome 777284111 Personal h istory of primary malignant neoplasm of breast 333223668 [id number] IKER Yan ([employer]ORTG[employer] OPERATIONS MANAGER) [address] [place] [address] 02/13/2016 11:10:45 02/13/2016 16:31:00 Personal history of primary malignant neoplasm of breast 967497117 Z85.3 Chronic constipation 236 142923 K59.00 K59.09 [id number] Pj Self ([employer] OPERATIONS MANAGER) [address] [place] [address] 02/11/2017 11:40:15 02/12/2017 14:48:32 Screening mammography 52833302 Z12.31 personal hx of breast cancer right side Personal h istory of primary malignant neoplasm of breast 512174558 Z85.3 Irritable bowel syndrome 47542891 K58.9 Chronic id iopathic constipation 05266054 K59.04 [id number] Ruel Andrew MD [facility] [employer] [address] [place] [address] 02/29/2024 14:01:25 02/29/2024 15:21:04 Essential hypertension 04252136 I10 Anxiety 29937792 F41.9 Insomnia 014973181 G47.0 0 Dyslipidemia 465924795 E 78.5 Chronic rhinitis 3356152 6 J31.0 [id number] Ruel Andrew MD [facility] [employer] [address] [employer] [place] [place] [address] 06/06/2024 11:50:23 06/06/2024 13:42:06 Palpitations 14868811 R00.2 Anxiety 93566196 F41.9 Chest pain 90753150 R07. 9 Essential hypertension 67190517 I10 [id number] Ruel Andrew MD [facility] [employer] [address] [place] [address] 07/04/2024 11:14:58 07/04/2024 13:14:58 Body mass index 25-29 - overweight 475600983 Z68.25 27.9 BMI Essential hypertension 18588240 I10 Anxiety 27963572 F41.9 [id number] Ruel Andrew MD [facility] [employer] [address] [place] [address] 10/03/2024 11:01:29 10/03/2024 13:29:46 Body mass index 25-29 - overweight 248438074 Z68.27 Overweight 364859153 E66 .3 Dyslipidemia 997897209 E 78.5 Essential hypertension 41065935 I10 Anxiety 56390789 F41.9 Insomnia 760726039 G47.0 0 Health Concerns Section Related Observation LastModified by Organization Detai ls LastModified Time None Recorded Concern Status LastModified by Organization Details LastModified Time None Recorded Advance Directives Directive N: Payers Encounter Date Sequence Insurance Name Policy Number Policy Mtz Covered Member ID Mtz Member ID Guarantor Name 02/11/2017 1 [facility] (MEDICARE REPLACEMENT HMO) [id number] Fay Corrales Foutch [id number] Fay Foutch 02/29/2024 1 [employer] (MEDICARE REPLACEMENT/A DVANTAGE - HMO) [id number] Fay Foutch [id number] Fay Foutch 06/06/2024 1 [employer] (MEDICARE REPLACEMENT/A DVANTAGE - HMO) [id number] Fay Foutch [id number] Fay Foutch 07/04/2024 1 [employer] (MEDICARE REPLACEMENT/A DVANTAGE - HMO) [id number] Fay Foutch [id number] Fay Foutch 10/03/2024 1 [employer] (MEDICARE REPLACEMENT/A DVANTAGE - HMO) [id number] Fay Foutch [id number] Fay Foutch Notes Date Note Type Note Provider Name and Address Organization Details Recorded Time 02/11/2017 text/html Breast ProblemsReported bypatient.Quality:asym ptomatic; no bloody discharge; no brown discharge; no milky discharge; no yellow-clear discharge; no yellow-green discharge; non-tender; improving; no mass Context:prior mammogram normal; performs breast self-examination; no breast implants; no family history of breast cancer; no history of breast cancer; no radiation treatment; no chemotherapy; no cancer; no previous biopsies; no miscarriages; recent MRI normal; lymph node status negative Modifying Factors:no recent change in exercise habits; no recent changes in weight; no recent changes in diet; no recent changes in medication dosage of hormone replacement therapy Aggravating Factors:none Associated Symptoms:no fever; no chills; no breast reddening; no nipple discharge; no sore nipples; no nipple inversion; breasts feel normal; no breast swelling; no arm pain; no arm swelling; no chest pain; no malaise; no breast lump; no change in breast skin 77yo here for annual clinical breast exam. Pj Herrmann [facility], [place] - [place] 02/11/2017 16:02:45 02/29/2024 text/html 84-year-old come s in for follow-up of medical problems anxiety somewhat high in the past several months she has a very supportive family no SI or HI but it is at its difficult time for hypertension no headache or dizziness. Rhinitis Singulair helps from time to time dyslipidemia takes her rosuvastatin and tries to watch her diet insomnia has done well with trazodone without side effects Ruel Andrew MD Attn: Accounting,[address] [facility], [place], [address], [facility] - [facility] 03/12/2024 17:11:13 06/06/2024 text/html hypertension no headache no dizziness. She has had some atypical chest pain had some palpitations over the past several weeks. Does not feel like she is going to pass out does not get sweaty nothing seems to be particularly consistent with what brings it on. Anxiety has been high Ruel Andrew MD Attn: Accounting,[address] [facility], [place], [address], [facility] - SI 06/19/2024 22:12:35 07/04/2024 text/html short interval follow-up no chest pain Ruel Andrew MD Attn: Accounting,[address] [facility], [place], [address], [facility] - SI 07/10/2024 17:34:42 10/03/2024 text/html insomnia doing f ine on current medical regimen without side effects hypertension blood pressure well controlled anxiety chronic doing well on current medical regimen. Her rhinitis is doing good dyslipidemia taking the rosuvastatin there is no side effects of any of the medications Ruel Andrew MD Attn: Accounting,[address] [facility], [place], [address], [facility] - SI 11/04/2024 21:10:04 OBGyn Episode Ob Episode Information Episode Created Date Number of Fetuses Patient Bloodtype Patient rh Status Prepregnancy Weight lbs Domestic Partner Domestic Partner Phone Father Name [employer] Status 02/12/20 17 1 CLOSED Fetus Data First Name Last Name Admitted to NICU Weight (g) Sex Living Outcome Pediatric Complications Fetus ID Race Codes Race Delivery Type M Full Term [id number] Vaginal Domenic Calculation Initial Domenic Date Initial Exam Date Initial Exam Provider Initial Ultrasound Date Last Menstrual Period Date Ultra Sound Weeks Gestation 0 Eighteen To Twenty Week Domenic Update Ultra Sound Date Fundal Height At Umbil Quickening Date Ultra Sound Latest Weeks Gestation Final Domenic Confirmed By Final Domenic Confirmed Date Final Domenic Date Ultra Sound Latest Days Gestation 0 0 Menstrual History Last Menstrual Date Menses Monthly On Bcp Conception Prior Menses Frequency Hcg Plus Date Menarche Onset Age Delivery Information Delivery Date Delivery Type Labor Anesthesia Weeks Gestation Incision Type Labor Labor Length Hrs Delivered By Post Complications Tubal Sterilization Discharge Date Comments 9 Discharge Information Feeding Method Contraceptive Method Maternal HG B and HCT Levels Ob Episode Information Episode Created Date Number of Fetuses Patient Bloodtype Patient rh Status Prepregnancy Weight lbs Domestic Partner Domestic Partner Phone Father Name [employer] Status 02/12/20 17 1 CLOSED Fetus Data First Name Last Name Admitted to NICU Weight (g) Sex Living Outcome Pediatric Complications Fetus ID Race Codes Race Delivery Type M Full Term [id number] Vaginal Domenic Calculation Initial Domenic Date Initial Exam Date Initial Exam Provider Initial Ultrasound Date Last Menstrual Period Date Ultra Sound Weeks Gestation 0 Eighteen To Twenty Week Domenic Update Ultra Sound Date Fundal Height At Umbil Quickening Date Ultra Sound Latest Weeks Gestation Final Domenic Confirmed By Final Domenic Confirmed Date Final Domenic Date Ultra Sound Latest Days Gestation 0 0 Menstrual History Last Menstrual Date Menses Monthly On Bcp Conception Prior Menses Frequency Hcg Plus Date Menarche Onset Age Delivery Information Delivery Date Delivery Type Labor Anesthesia Weeks Gestation Incision Type Labor Labor Length Hrs Delivered By Post Complications Tubal Sterilization Discharge Date Comments 4 Discharge Information Feeding Method Contraceptive Method Maternal HG B and HCT Levels Ob Episode Information Episode Created Date Number of Fetuses Patient Bloodtype Patient rh Status Prepregnancy Weight lbs Domestic Partner Domestic Partner Phone Father Name [employer] Status 02/12/20 17 1 CLOSED Fetus Data First Name Last Name Admitted to NICU Weight (g) Sex Living Outcome Pediatric Complications Fetus ID Race Codes Race Delivery Type M Full Term [id number] Vaginal Domenic Calculation Initial Domenic Date Initial Exam Date Initial Exam Provider Initial Ultrasound Date Last Menstrual Period Date Ultra Sound Weeks Gestation 0 Eighteen To Twenty Week Domenic Update Ultra Sound Date Fundal Height At Umbil Quickening Date Ultra Sound Latest Weeks Gestation Final Domenic Confirmed By Final Domenic Confirmed Date Final Domenic Date Ultra Sound Latest Days Gestation 0 0 Menstrual History Last Menstrual Date Menses Monthly On Bcp Conception Prior Menses Frequency Hcg Plus Date Menarche Onset Age Delivery Information Delivery Date Delivery Type Labor Anesthesia Weeks Gestation Incision Type Labor Labor Length Hrs Delivered By Post Complications Tubal Sterilization Discharge Date Comments 7 Discharge Information Feeding Method Contraceptive Method Maternal HG B and HCT Levels Ob Episode Information Episode Created Date Number of Fetuses Patient Bloodtype Patient rh Status Prepregnancy Weight lbs Domestic Partner Domestic Partner Phone Father Name [employer] Status 02/12/20 17 1 CLOSED Fetus Data First Name Last Name Admitted to NICU Weight (g) Sex Living Outcome Pediatric Complications Fetus ID Race Codes Race Delivery Type F Full Term [id number] Vaginal Domenic Calculation Initial Domenic Date Initial Exam Date Initial Exam Provider Initial Ultrasound Date Last Menstrual Period Date Ultra Sound Weeks Gestation 0 Eighteen To Twenty Week Domenic Update Ultra Sound Date Fundal Height At Umbil Quickening Date Ultra Sound Latest Weeks Gestation Final Domenic Confirmed By Final Domenic Confirmed Date Final Domenic Date Ultra Sound Latest Days Gestation 0 0 Menstrual History Last Menstrual Date Menses Monthly On Bcp Conception Prior Menses Frequency Hcg Plus Date Menarche Onset Age Delivery Information Delivery Date Delivery Type Labor Anesthesia Weeks Gestation Incision Type Labor Labor Length Hrs Delivered By Post Complications Tubal Sterilization Discharge Date Comments 2 Discharge Information Feeding Method Contraceptive Method Maternal HG B and HCT Levels
== END 2025-01-10 12:14 | disposition home or self-care (01) ==
PROVIDERS: PCP Internal Medicine; Visit Provider Internal Medicine
DX: R05.3 Chronic cough (principal)
CPT/HCPCS: 71046

== ENCOUNTER 2025-02-06 11:53 | Outpatient (CLI) | payer MEDICARE, SELFPAY ==
--- NOTE | ~2025-02-06 | XR_ITS ---
Left Knee Technique: AP, lateral, and sunrise views were obtained. Clinical History: Pain Findings: No fracture or dislocation is seen. There is mild to moderate tricompartmental degenerative change. Soft tissues are unremarkable. No joint effusion is seen. 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 Reviewed, dictated and finalized at location . 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
[2025-02-06 12:46] LABS: Basophils Absolute Auto 0.1 K/mm3 (0.0-0.1); Basophils Percent Auto 1.5 % (0.2-1.2); Eosinophils Absolute Auto 0.1 K/mm3 (0-0.3); Eosinophils Percent Auto 1.7 % (0-4.4); Hematocrit 42.9 % (37.0-47.0); Immature Granulocyte Absolute 0.01 K/mm3 (0.00-0.031); Immature Granulocyte Percent A 0.1 % (0-0.5); Lymphocytes Absolute Auto 1.72 K/mm3 (0.9-3.2); Lymphocytes Percent Auto 23.1 % (18.3-44.2); Mean Corpuscular HGB Conc 32.6 g/dl (32-36); Mean Corpuscular Volume 94.9 fl (80-100); Mean Platelet Volume 9.5 fl (7.4-10.4); Monocytes Absolute Auto 0.8 K/mm3 (0.1-0.6); Neutrophils Absolute Auto 4.7 K/mm3 (1.3-6.7); Neutrophils Percent Auto 62.6 % (45.5-73.1); Platelet Count Result 282 k/mm3 (150-375); Red Blood Count 4.52 M/mm3 (4.2-5.4); Red Cell Distribution Width 13.1 % (11.5-14.5); White Blood Count 7.5 K/mm3 (4.5-10.0)
[2025-02-06 13:12] LABS: Alanine Aminotransferase 21 U/L (6-35); Albumin Level 4.4 g/dL (3.5-5.1); Alkaline Phosphatase 88 U/L (38-126); Anion Gap 7 mmol/L (4-12); Aspartate Amino Transferase 31 U/L (14-36); Bilirubin,Total 0.7 mg/dL (0.2-1.3); Blood Urea Nitrogen 19 mg/dL (7-17); Carbon Dioxide 28 mmol/L (22-30); Chloride 102 mmol/L (98-107); Cholesterol 146 mg/dL (0-200); Estimated Glomerular Filt Rate 57; Glucose 103 mg/dL (65-110); HDL Direct 73 mg/dL; Potassium 4.3 mmol/L (3.4-5.0); Sodium 137 mmol/L (137-145); Triglycerides 90 mg/dL (<150)
--- OUTSIDE RECORDS SUMMARY | 2025-02-06 13:21 | XMS_ITS | Data Portability ---
Author Organization [place] - [facility] Vick Chacon C Address [address] [place] [address] Care Team Providers Care Senior Ecologist Name Role Phone RUEL ANDREW Primary Care [...] with me in 3 to 4 months [email or web address] Not available 03/12/2024 17:10:35 06/06/2024 06/06/2024 EKG shows a sinus rhythm with PVCs questionable long QT no acute changes. Blood work Lexiscan echo Holter monitor follow few weeks [email or web address] Not available 06/19/2024 22:12:17 07/04/2024 07/04/2024 echo no regional wall motion abnormalities no further chest pain she does not want to pursue cardiac stress testing we will continue current therapy she will follow up in 3 months [email or web address] Not available 07/10/2024 17:33:57 10/03/2024 10/03/2024 continue current therapy we did discuss immunizations she will consider follow up in 4 months Not available 11/04/2024 21:09:44 Plan of Treatment Reminders Order Date Submit Date Provider Last Modified By Organization Details Last Modified Time Details Appointments ANY 15 2024 11:00A Bobby Andrew MD Not available Not available Not available ANY 15 2024 10:15A Bobby Andrew MD Not available Not available Not available Lab CMP, serum or plasma 2023 024 [employer] [facility], [address], [place], [address], 06/13/2024 21:27:05 CBC w/ auto diff 2023 024 [facility], [address], [place], [address], 06/13/2024 17:56:51 magnesium , serum or plasma 2023 024 [place] [address] [facility], [address], [place], [address], 06/21/2024 12:13:05 lipid panel, serum 2023 024 [employer] [facility], [address], [place], [address], 06/20/2024 13:48:31 TSH, serum or plasma [address] (Lab), [address] [place] [address], [address], 06/21/2024 12:12:31 T4, free, serum 2023 024 [facility] (Lab), [address] [place] [address], [address], 06/14/2024 12:34:25 T3, free, serum or plasma 2023 024 [facility] (Lab), [address] [place] [address], [address], 06/14/2024 12:16:22 Referral None recorded. Procedures lexiscan cardiolit e stress test (PROC) 2023 024 [facility], [address], [place], [address], 07/05/2024 09:12:38 Surgeries None recorded. Imaging US, echocardi ogram 2023 024 [facility], [address], [place], [address], 06/13/2024 14:03:23 holter monitor - 2wk holter 2023 024 [email or web address], [address], [place], [address], 07/25/2024 22:41:52 XR, chest 2023 024 [facility] (Imaging), [address], [place], [address], 06/13/2024 17:34:16 electroca rdiogram 2023 024 [email or web address] In-Office Order, Internal Use Only DO Not Attach Compendium DO Not Attach Compendium, Do Not Delete/merge, [id number] 06/06/2024 17:17:21 Medication Orders None recorded. Patient TargetsNo targets recorded. Patient Instructions Encounter Date Encounter Id Patient Instructions Last Modified By Organization Details Last Modified Time 10/03/2024 [id number] A healthy lifestyle: care instructions [email or web address] Not available 10/03/2024 14:55:00 Reason for Referral None Reported. Results Created Date Observation Date Name Description Value Unit Range Abnormal Flag Note LastModifiedBy Organization Detail LastModifiedTime 06/06/20 elect rocar diogr am No observ ation record ed. [facility] In-Office Order Internal Use Only DO Not Attach Compendium DO Not Attach Compendium, Do Not Delete/merge, [id number] 06/06/2024 14:44:48 06/06/20 24 06/06/2024 elect rocar diogr am No observ ation record ed. [facility] In-Office Order Internal Use Only DO Not Attach Compendium DO Not Attach Compendium, Do Not Delete/merge, [id number] 06/06/2024 14:56:29 06/13/20 24 06/13/2024 , [facility] ardio gram No observ ation record ed. [facility] [address], [place], [address], 06/17/2024 11:30:01 06/13/20 24 06/13/2024 XR, chest No observ ation record ed. [address], [place], [address], 06/17/2024 11:30:02 06/13/20 24 06/13/2024 XR, chest No observ ation record ed. [address], [place], [address], 06/17/2024 11:30:03 07/25/20 24 06/13/2024 jan r monit or No observ ation record ed. [facility] [address], [place], [address], 07/25/2024 12:17:02 01/11/20 25 01/10/2025 XR, chest No observ ation record ed. [address], [place], [address], 01/11/2025 16:52:47 01/11/20 25 01/10/2025 XR, chest No observ ation record ed. [address], [place], [address], 01/11/2025 16:52:47 02/07/20 25 02/06/2025 XR, knee No observ ation record ed. [address], [place], [address], 02/06/2025 13:51:26 Result Notes None recorded. Problems Name Problem SNOMED Code Status Onset Date Resolution Date Notes Provider Name and Address Organization Details Recorded Time Atrophic vaginitis 47621211 Active MINOO Ellison - [facility] 6 16:26:10 Menopausal syndrome 993506367 Active Pj Herrmann null, [place] - [facility] 6 16:26:10 Osteopenia 075629701 Active Pj [place] [facility] 6 16:26:10 Essential hypertensio n 39213185 Active 2023 Ruel Andrew MD Attn: John oleg,[address] [facility], [place], [address], [place] [facility] 4 17:09:56 Anxiety 50326454 Active 2023 Ruel Andrew MD Attn: John g,[address] [facility], [place], [address], [place] [facility] 4 17:09:57 Insomnia 265002156 Active 2023 Ruel Andrew MD Attn: John oleg,[address] [facility], [place], [address], [place] [facility] 4 17:09:58 Dyslipidemi a 010597768 Active 2023 Ruel Andrew MD Attn: John g,[address] [facility], [place], [address], [place] [facility] 4 17:10:01 Chronic rhinitis 94354727 Active 2023 Ruel Andrew MD Attn: John dejesus,[address] [facility], [place], [address], [place] [facility] 4 17:10:02 Palpitation s 93791120 Active 2023 Jose George [place] [facility] 4 14:44:14 Chest pain 56696633 Active 2023 Jose George [place] [facility] 4 14:44:15 Pain of left knee joint 1775830973984 07 Active 2024 Jose George [place] [facility] 5 12:34:43 Chronic constipatio n 693710871 Active Maggie Emery LPN null, [place] - [facility] 6 16:29:42 Problem Notes None recorded. Procedures Surgical History Date Name Laterality Status Provider Name and Address Organization Details Recorded Time 3 Most Recent Mammogram completed Bella Price MA [facility] 02/13/2016 11:47:55 1 Date of Last Pap Smear completed Bella Price MA [facility] 11/28/2014 13:27:59 2 Breast Surgery completed Brianna Monaco [place] - [facility] 02/13/2016 12:04:32 Imaging Results Imaging Date Name Status LastModified by Organization Details LastModified Time 06/06/2024 electrocardiogram completed [facility] In-Offi ce Order Internal Use Only DO Not Attach Compendium DO Not Attach Compendium, Do Not Delete/merge, [id number] 06/06/2024 14:44:48 06/06/2024 electrocardiogram completed [facility] Order Internal Use Only DO Not Attach Compendium DO Not Attach Compendium, Do Not Delete/merge, [id number] 06/06/2024 14:56:29 06/13/2024 US, echocardiogram completed [facility] [address], [place], [address], 06/17/2024 11:30:01 06/13/2024 XR, chest completed [address], [place], [address], 06/17/2024 11:30:02 06/13/2024 XR, chest completed [place] [address] [facility] [address], [place], [address], 06/17/2024 11:30:03 06/13/2024 holter monitor completed [facility] [address], [place], [address], 07/25/2024 12:17:02 01/10/2025 XR, chest completed [place] [address] [facility] [address] [facility] [address], [place], [address], 01/11/2025 16:52:47 01/10/2025 XR, chest completed [place] [address] [facility] [address] [facility] [address], [place], [address], 01/11/2025 16:52:47 02/06/2025 XR, knee active [facility] [address], [place], [address], 02/06/2025 13:51:26 Procedure Notes None recorded. Medical Equipment None Reported. Allergies Allergen ID Allergen Name Allergen Category Reaction Reaction Severity Criticality Documentation Date Start Date Code Code System Note Provider Name and Address Organization Details Recorded Time Substance with sulfonami de structure and antibacte rial mechanism of action (substanc e) medicatio n hives severe Not available 11/28/2014 51482 8003 SNOMED Not Available Not Available Not Available Medications Name Sig Start Date Stop Date Status Note LastModified by Organization Details LastModified Time hydrocodone 7.5 mg-ibuprofe n 200 mg tablet 02/11 completed Not Available Not Available Not Available trazodone 50 mg tablet TAKE 1 TABLET BY MOUTH NIGHTLY active Not Available Not Available No t Available azithromyci n 250 mg tablet Take 1 [...] Available Not Available amlodipine 5 mg tablet TAKE 1 TABLET BY MOUTH ONCE DAILY active Not Available Not Available No t Available ciprofloxac in 500 mg tablet 02/11 completed Not Available Not Available Not Available alprazolam 0.5 mg tablet TAKE 1 TABLET BY MOUTH THREE TIMES DAILY active Not Available Not Available No t Available Fosamax 70 mg tablet Take 1 tablet every week by oral route. 02/11 completed Not Available Not Available Not Available diclofenac sodium 75 mg tablet,ziabel yed release 02/11 completed Not Available Not Available Not Available montelukast 10 mg tablet TAKE 1 TABLET BY MOUTH ONCE DAILY active Not Available Not Available No t Available cefuroxime axetil 500 mg tablet 02/11 completed [...] Not Available rosuvastati n 10 mg tablet TAKE 1 TABLET BY MOUTH ONCE DAILY active Not Available Not Available No t Available nitrofurant oin monohydrate /macrocryst als 100 mg [...] Updated DateTime 4 156.21 cm 26.4 kg/m2 10808.4 8 g 81 /min 98 % 98 % 124 mm[Hg] 72 mm[Hg] Marianna Rodriguez MA [facility] 4 14:26:01 Date Recorded Body height Body mass index (BMI) Body weight Heart rate Oxygen saturation Oxygen saturation in Arterial blood by Pulse oximetry Systolic blood pressure Diastolic blood pressure Provider Name and Address Organization Details Last Updated DateTime 4 156.21 cm 27.2 kg/m2 75337.9 2 g 105 /min 96 % 96 % 104 mm[Hg] 80 mm[Hg] Mariya Simmons MA [facility] 4 12:23:47 Date Recorded Body height Body mass index (BMI) Body weight Heart rate Oxygen saturation Oxygen saturation in Arterial blood by Pulse oximetry Systolic blood pressure Diastolic blood pressure Provider Name and Address Organization Details Last Updated DateTime 4 156.21 cm 27.9 kg/m2 53963.1 4 g 89 /min 99 % 99 % 126 mm[Hg] 78 mm[Hg] Mariya Simmons MA [facility] 4 12:08:54 Date Recorded Body height Body mass index (BMI) Body weight Heart rate Oxygen saturation Oxygen saturation in Arterial blood by Pulse oximetry Systolic blood pressure Diastolic blood pressure Provider Name and Address Organization Details Last Updated DateTime 4 156.21 cm 27.8 kg/m2 85799.7 g 91 /min 97 % 97 % 118 mm[Hg] 70 mm[Hg] Sandra Ibarra [place] - [facility] 4 11:52:36 Date Recorded Body height Body mass index (BMI) Body weight Heart rate Oxygen saturation Oxygen saturation in Arterial blood by Pulse oximetry Systolic blood pressure Diastolic blood pressure Provider Name and Address Organization Details Last Updated DateTime 5 156.21 cm 27.8 kg/m2 80676.1 4 g 102 /min 99 % 99 % 126 mm[Hg] 62 mm[Hg] Itzel MELONY Navarrete [place] - [facility] 5 12:08:55 Social History Question Answer Notes LastModified by Organizat ion Details LastModified Time Tobacco Smoking Status Never Smoker Bella Price MA null, [place] - [facility] 11/28/2014 13:27:58 Do You Have An Advance [...] Date Of Your Most Recent Tobacco Screening? 02/06/2025 Information not available 02/06/2025 How Many Children Do You Have? 4 [...] Anxious, Or Unable To Sleep At Night)? [id number] Information not available 02/29/2024 Do You Use Any Illicit Or Recreational Drugs? No Information not available 10/03/2024 Do You Use Sunscreen Routinely? Yes Information not available 11/28/2014 Has Tobacco Cessation Counseling Been Provided? No Information not available 02/06/2025 How Many Years Have You Smoked Tobacco? 0 [email or web address] Information not available 02/13/2016 Sex: Female Functional [...] High Blood Pressure N Breast Cancer Y Depression N Blood Clots N Lung Disease N Breast Problem N Anesthesia Complications N Headaches/Migraines N Anxiety Disorder N Muscle, Joint, or Bone Problems N Polyps N Infertility N Acid Reflux (GERD) N Cancer Y Endometriosis N High Cholesterol N Liver Disease N Thyroid Problems N Kidney or Bladder Problems N GI Problems N Acne N Eating Disorder N Anemia N Diabetes N Ovarian Cancer N Blood Transfusions N Seizures/Epilepsy N Abuse/Domestic Violence N Asthma N Hepatitis N Heart Disease N Pre-Eclampsia N Osteoporosis [...] Full Term 4 Living 4 Total 4 Immunizations Vaccine Type Date Status Note Provider Nam e and Address Organization Details Recorded Time Influenza, high-dose, quadrivalent, PF 3 completed Itzel Rosalba, [place], [place] [facility] 02/06/2025 12:12:00 Influenza, high-dose, quadrivalent, PF 0 completed Itzel Rosalba, [place] [facility] 02/06/2025 12:12:00 Influenza, high-dose, quadrivalent, PF 1 completed Itzel Rosalba[place] [facility] 02/06/2025 12:12:00 Influenza, high-dose, quadrivalent, PF 2 completed Itzel Rosalba, [place] [facility] 02/06/2025 12:12:00 Influenza, high-dose, quadrivalent, PF 9 completed Itzel Rosalba[place] [facility] 02/06/2025 12:12:01 COVID-19, mRNA, LNP-S, PF, 100 mcg/0.5mL dose or 50 mcg/0.25mL dose 2 completed Itzel Rosalba, [place] [facility] 02/06/2025 12:12:01 COVID-19, mRNA, LNP-S, PF, 100 mcg/0.5mL dose or 50 mcg/0.25mL dose 1 completed Itzel Rosalba, [place] [facility] 02/06/2025 12:12:01 COVID-19, mRNA, LNP-S, PF, 100 mcg/0.5mL dose or 50 mcg/0.25mL dose 1 completed [place] [facility] 02/06/2025 12:12:01 COVID-19, mRNA, LNP-S, PF, 100 mcg/0.5mL dose or 50 mcg/0.25mL dose 1 completed [place] [facility] 02/06/2025 12:12:01 COVID-19, mRNA, LNP-S, PF, 100 mcg/0.5mL dose or 50 mcg/0.25mL dose 2 completed [place] [facility] 02/06/2025 12:12:01 COVID-19, mRNA, LNP-S, bivalent, PF, 50 mcg/0.5 mL or 25mcg/0.25 mL dose 2 completed [place] [facility] 02/06/2025 12:12:01 RSV, recombinant, protein subunit RSVpreF, adjuvant reconstituted, 0.5 mL, PF 3 completed [place] [facility] 02/06/2025 12:12:01 COVID-19, mRNA, LNP-S, PF, 50 mcg/0.5 mL 3 completed [place] [facility] 02/06/2025 12:12:01 pneumococcal polysaccharide PPV23 8 completed [place] [facility] 02/06/2025 12:12:01 Pneumococcal conjugate PCV 13 3 completed [place] [facility] 02/06/2025 12:12:01 zoster live 5 completed [place] [facility] 02/06/2025 12:12:01 Influenza, high-dose, trivalent, PF 7 completed [place] [facility] 02/06/2025 12:12:01 Influenza, high-dose, trivalent, PF 6 completed Itzel Rosalba[place] [facility] 02/06/2025 12:12:01 Influenza, high-dose, trivalent, PF 9 completed Itzel Roslaba[place] [facility] 02/06/2025 12:12:01 Influenza, high-dose, trivalent, PF 8 completed Itzel Rosalba[place] [facility] 02/06/2025 12:12:01 Influenza, high-dose, trivalent, PF 8 completed Itzel Rosal[place] [facility] 02/06/2025 12:12:01 Influenza, split virus, trivalent, preservative 3 completed Itzel Rosal[place] [facility] 02/06/2025 12:12:01 Influenza, split virus, trivalent, PF 4 completed Itzel Rosal[place] [facility] 02/06/2025 12:12:01 Influenza, split virus, quadrivalent, PF 5 completed Itzel Rosal[place] [facility] 02/06/2025 12:12:01 COVID-19, mRNA, LNP-S, PF, 50 mcg/0.5 mL 4 completed Itzel Rosal[place] [facility] 02/06/2025 12:12:14 Influenza, high-dose, trivalent, PF 4 completed Itzel Rosal[place] [facility] 02/06/2025 12:12:14 Past Encounters Encounter ID Performer Location Encounter Start Date Encounter Closed Date Diagnosis/Indication Diagnosis SNOMED-CT Code Diagnosis ICD10 Code Diagnosis Note [id number] JONATHAN Banegas (INSURANCE ASSOCIATE) [address] [place] [address] 11/28/2014 12:50:52 11/28/2014 14:25:42 Gynecologic examination 50819720 Atrophic vaginitis 91120367 Menopausal syndrome 596023750 Personal h istory of primary malignant neoplasm of breast 225302447 [id number] IKER Yan (INSURANCE ASSOCIATE) [address] [place] [address] 02/13/2016 11:10:45 02/13/2016 16:31:00 Personal history of primary malignant neoplasm of breast 006635288 Z85.3 Chronic constipation 236 854751 K59.00 K59.09 [id number] Pj Herrmann Aramis (INSURANCE ASSOCIATE) [address] [place] [address] 02/11/2017 11:40:15 02/12/2017 14:48:32 Screening mammography 45143871 Z12.31 personal hx of breast cancer right side Personal h istory of primary malignant neoplasm of breast 355627011 Z85.3 Irritable bowel syndrome 91835566 K58.9 Chronic id iopathic constipation 14723121 K59.04 [id number] Ruel Andrew MD [facility] [address] [place] [address] 02/29/2024 14:01:25 02/29/2024 15:21:04 Essential hypertension 11624121 I10 Anxiety 83812071 F41.9 Insomnia 477353973 G47.0 0 Dyslipidemia 666153534 E 78.5 Chronic rhinitis 7865060 6 J31.0 [id number] Ruel Andrew MD [facility] [place] [address] [place] [address] 06/06/2024 11:50:23 06/06/2024 13:42:06 Palpitations 12047291 R00.2 Anxiety 67089917 F41.9 Chest pain 55078210 R07. 9 Essential hypertension 42150886 I10 [id number] Ruel Andrew MD [facility] [place] [address] [place] [address] 07/04/2024 11:14:58 07/04/2024 13:14:58 Body mass index 25-29 - overweight 491277282 Z68.25 27.9 BMI Essential hypertension 35085982 I10 Anxiety 10270278 F41.9 [id number] Ruel Andrew MD [facility] [place] [address] [place] [address] 10/03/2024 11:01:29 10/03/2024 13:29:46 Body mass index 25-29 - overweight 746601460 Z68.27 Overweight 511027397 E66 .3 Dyslipidemia 613615932 E 78.5 Essential hypertension 46458902 I10 Anxiety 15254723 F41.9 Insomnia 158116414 G47.0 0 [id number] Jose George MA [facility] [place] [address] [place] [address] 02/06/2025 11:54:02 02/06/2025 12:37:03 Body mass index 25-29 - overweight 347054826 Z68.27 Overweight 015741963 E66 .3 Pain of le ft knee joint 2381567412 40445 M25.562 Essential hypertension 46593622 I10 Health Concerns Section Related Observation LastModified by Organization Detai ls LastModified Time None Recorded Concern Status LastModified by Organization Details LastModified Time None Recorded Advance Directives Directive N: Payers Encounter Date Sequence Insurance Name Policy Number Policy Mtz Covered Member ID Mtz Member ID Guarantor Name 02/29/2024 1 [employer] (MEDICARE REPLACEMENT/ ADVANTAGE - HMO) [id number] Fay Mccormick [id number] Fay Foutch 06/06/2024 1 [employer] (MEDICARE REPLACEMENT/ ADVANTAGE - HMO) [id number] Fay Corrales Foutch [id number] Fay Foutch 07/04/2024 1 [employer] (MEDICARE REPLACEMENT/ ADVANTAGE - HMO) [id number] Fay Alexutrolando [id number] Fay Foutch 10/03/2024 1 [employer] (MEDICARE REPLACEMENT/ ADVANTAGE - HMO) [id number] Fay Mcqueen [id number] Fay Mccormick Notes Date Note Type Note Provider Name and Address Organization Details Recorded Time 02/29/2024 text/html 84-year-old come s in for [...] without side effects Ruel Andrew MD Attn: Accounting,[address] , [place], [address], [place] [facility] 03/12/2024 17:11:13 06/06/2024 text/html hypertension no headache no dizziness. She has had some atypical chest pain had some palpitations over the past several weeks. Does not feel like she is going to pass out does not get sweaty nothing seems to be particularly consistent with what brings it on. Anxiety has been high Ruel Andrew MD Attn: Accounting,[address], [place], [address], [place] [facility] 06/19/2024 22:12:35 07/04/2024 text/html short interval follow-up no chest pain Ruel Andrew MD Attn: Accounting[address] [facility], [place], [address], [place] [facility] 07/10/2024 17:34:42 10/03/2024 text/html insomnia doing fine on current medical regimen without side effects hypertension blood pressure well controlled anxiety chronic doing well on current medical regimen. Her rhinitis is doing good dyslipidemia taking the rosuvastatin there is no side effects of any of the medications Ruel Andrew MD Attn: [address] [facility], [place], [address], [place] [facility] 11/04/2024 21:10:04 OBGyn Episode Ob Episode Information Episode Created Date Number of Fetuses Patient Bloodtype Patient rh Status Prepregnancy Weight lbs Domestic Partner Domestic Partner Phone Father Name Ceramic Capacitor Processor Status 02/12/20 17 1 CLOSED Fetus Data First Name Last Name Admitted to NICU Weight (g) Sex Living Outcome Pediatric Complications Fetus ID Race Codes Race Delivery Type M Full Term [id number] Vaginal Domenic Calculation Initial Domenic Date Initial [...] Domestic Partner Domestic Partner Phone Father Name Ceramic Capacitor Processor Status 02/12/20 17 1 CLOSED Fetus Data First Name Last Name Admitted to NICU Weight (g) Sex Living Outcome Pediatric Complications Fetus ID Race Codes Race Delivery Type M Full Term [id number] Vaginal Domenic Calculation Initial Domenic Date Initial [...] Domestic Partner Domestic Partner Phone Father Name Ceramic Capacitor Processor Status 02/12/20 17 1 CLOSED Fetus Data First Name Last Name Admitted to NICU Weight (g) Sex Living Outcome Pediatric Complications Fetus ID Race Codes Race Delivery Type M Full Term [address]1299 Vaginal Domenic Calculation Initial Domenic Date Initial [...] Domestic Partner Domestic Partner Phone Father Name Ceramic Capacitor Processor Status 02/12/20 17 1 CLOSED Fetus Data First Name Last Name Admitted to NICU Weight (g) Sex Living Outcome Pediatric Complications Fetus ID Race Codes Race Delivery Type F Full Term 06971 Vaginal Domenic Calculation Initial Domenic Date Initial [...]
[2025-02-06 13:23] LABS: LDL Cholesterol Direct 49 mg/dL
== END 2025-02-06 11:54 | disposition home or self-care (01) ==
PROVIDERS: PCP Internal Medicine; Visit Provider Internal Medicine
DX: M17.12 Unilateral primary osteoarthritis, left knee (principal); I10 Essential (primary) hypertension
CPT/HCPCS: 36415; 73564; 80053; 80061; 85025

== ENCOUNTER 2025-05-11 12:06 | Outpatient (CLI) | payer MEDICARE, SELFPAY ==
--- NOTE | ~2025-05-11 | XR_ITS ---
Thoracic spine: Clinical Indication: Back pain AP and lateral views were performed. , Mild compression deformity of L1 noted. There is relative kyphosis of the thoracic spine with multi level mild disc narrowing. Paravertebral soft tissues appear normal. Impression: Mild L1 compression applied. Relative kyphosis of the thoracic spine. Reviewed, dictated and finalized at location . Impression: Mild L1 compression applied. Relative kyphosis of the thoracic spine.
--- OUTSIDE RECORDS SUMMARY | 2025-05-11 12:09 | XMS_ITS | Data Portability ---
Author Organization [facility] Address [address] [place] [address] Care Team Providers Care Leather Shaver Name Role Phone RUEL ANDREW Primary Care Provider Assessment Encounter Date Assessment Date Assessment LastModified by Organization Details LastModified Time 06/06/2024 06/06/2024 EKG shows a sinus rhythm with PVCs questionable long QT no acute changes. Blood work Lexiscan echo Holter monitor follow few weeks [email or web address] Not available 06/19/2024 22:12:17 07/04/2024 07/04/2024 echo no regional wall motion abnormalities no further chest pain she does not want to pursue cardiac stress testing we will continue current therapy she will follow up in 3 months [email or web address] Not available 07/10/2024 17:33:57 10/03/2024 10/03/2024 continue current therapy we did discuss immunizations she will consider follow up in 4 months [email or web address] Not available 11/04/2024 21:09:44 02/06/2025 02/06/2025 Blood work has been ordered continue current therapy x-ray of the left knee rest ice and elevation when it bothers her she will see me in 4 months otherwise continue current therapy Tylenol 1000 mg b.i.d. PRN for knee pain when it flares up [email or web address] Not available 03/11/2025 17:54:51 Plan of Treatment Reminders Order Date Submit Date Provider Last Modified By Organization Details Last Modified Time Details Appointments ANY 15 2024 10:15A M Ruel Andrew MD Not available Not available Not available Lab CMP, serum or plasma 2024 025 [email or web address], [address], [place], [address], 02/06/2025 15:53:18 CBC w/ auto diff 2024 025 [facility], [address], [place], [address], 02/27/2025 10:00:22 lipid panel, serum 2024 025 [facility], [address], [place], [address], 02/27/2025 10:00:22 CMP, serum or plasma 2023 024 [email or web address], [address], [place], [address], 06/13/2024 21:27:05 CBC w/ auto diff 2023 024 [email or web address], [address], [place], [address], 06/13/2024 17:56:51 magnesium , serum or plasma [address], [address], [place], [address], 06/21/2024 12:13:05 lipid panel, serum 2023 024 [facility], [address] [place], [address], 06/20/2024 13:48:31 TSH, serum or plasma [address] (Lab), [address] [place] [address] [address], [address], 06/21/2024 12:12:31 T4, free, serum 2023 024 [facility] (Lab), [facility] [address], [address], 06/14/2024 12:34:25 T3, free, serum or plasma 2023 024 [facility] (Lab), [facility] [address], [address], 06/14/2024 12:16:22 Referral None recorded. Procedures lexiscan cardiolit e stress test (PROC) 2023 024 penelope [facility], [address], [facility] [address], [place], [address], 07/05/2024 09:12:38 Surgeries None recorded. Imaging XR, knee 2024 025 [facility] (Imaging), [address] [place] [address], [address], 02/06/2025 13:51:26 US, echocardi ogram 2023 024 [facility], [address] [place] [address], [address], 06/13/2024 14:03:23 holter monitor - 2wk holter 2023 024 [email or web address], [address] [place] [address], [address], 07/25/2024 22:41:52 XR, chest 2023 024 [facility] (Imaging), [address] [place] [address], [address], 06/13/2024 17:34:16 electroca rdiogram 2023 024 [email or web address] In-Office Order, Internal Use Only DO Not Attach Compendium DO Not Attach Compendium, Do Not Delete/merge, [id number] 06/06/2024 17:17:21 Medication Orders None recorded. Patient TargetsNo targets recorded. Patient Instructions Encounter Date Encounter Id Patient Instructions Last Modified By Organization Details Last Modified Time 10/03/2024 [id number] A healthy lifestyle: care instructions [email or web address] Not available 10/03/2024 14:55:00 02/06/2025 [id number] A healthy lifestyle: care instructions [email or web address] Not available 02/06/2025 13:44:52 Reason for Referral None Reported. Results Created Date Observation Date Name Description Value Unit Range Abnormal Flag Note LastModifiedBy Organization Detail LastModifiedTime 06/06/20 elect rocar diogr am No observ ation record ed. [facility] In-Office Order Internal Use Only DO Not Attach Compendium DO Not Attach Compendium, Do Not Delete/merge, [id number] 06/06/2024 14:44:48 06/06/20 24 06/06/2024 elect rocar diogr am No observ ation record ed. [facility] In-Office Order Internal Use Only DO Not Attach Compendium DO Not Attach Compendium, Do Not Delete/merge, [id number] 06/06/2024 14:56:29 06/13/2006/13/2024 , [facility] ardio gram No observ ation record ed. [facility] [address], [place], [address], 06/17/2024 11:30:01 06/13/20 24 06/13/2024 XR, chest No observ ation record ed. [place] [address], [place], [address], 06/17/2024 11:30:02 06/13/20 24 06/13/2024 XR, chest No observ ation record ed. [place] [id number] [facility] [address], [place], [address], 06/17/2024 11:30:03 07/25/20 24 06/13/2024 jan r monit or No observ ation record ed. [facility] [address], [place], [address], 07/25/2024 12:17:02 01/11/20 25 01/10/2025 XR, chest No observ ation record ed. [address], [place], [address], 01/11/2025 16:52:47 01/11/20 25 01/10/2025 XR, chest No observ ation record ed. [address], [place], [address], 01/11/2025 16:52:47 02/07/20 25 02/06/2025 XR, knee No observ ation record ed. [address], [place], [address], 02/10/2025 15:23:30 02/07/20 25 02/06/2025 XR, knee No observ ation record ed. [address], [place], [address], 02/10/2025 15:23:31 Result Notes None recorded. Problems Name Problem SNOMED Code Status Onset Date Resolution Date Notes Provider Name and Address Organization Details Recorded Time Atrophic vaginitis 87459842 Active Pj RodriguezMontez null, [place] - [facility] 6 16:26:10 Menopausal syndrome 487218266 Active Pj Montez [place] [facility] 16:26:10 Osteopenia 258254022 Active Pj Montez [place] [facility] 16:26:10 Chronic constipatio n 302229263 Active Maggie Emery LPN null, [place] [facility] 6 16:29:42 Essential hypertensio n 20211673 Active 2023 Ruel Andrew MD Attn: John dejesus,[address] [place], [address] [place] [facility] 17:09:56 Anxiety 17752831 Active 2023 Ruel Andrew MD Attn: John dejesus,[address] [facility], [place], [address], [place] - [facility] 4 17:09:57 Insomnia 931275253 Active 2023 Ruel Andrew MD Attn: John dejesus,[address] [facility], [place], [address], [place] [facility] 4 17:09:58 Dyslipidemi a 588970029 Active 2023 Ruel Andrew MD Attn: John dejesus,[address] [facility], [place], [address], [place] [facility] 4 17:10:01 Chronic rhinitis 80159620 Active 2023 Ruel Andrew MD Attn: John dejesus,[address] [facility], [place], [address], [place] [facility] 4 17:10:02 Palpitation s 60589683 Active 2023 Jose George [place], [place] [facility] 4 14:44:14 Chest pain 91300075 Active 2023 Jose George [place] [facility] 4 14:44:15 Pain of left knee joint 3662542181347 07 Active 2024 Jose George [place], [place] [facility] 5 12:34:43 Problem Notes None recorded. Procedures Surgical History Date Name Laterality Status Provider Name and Address Organization Details Recorded Time 3 Most Recent Mammogram completed Bella Price [place] - [facility] 02/13/2016 11:47:55 1 Date of Last Pap Smear completed Bella Price [place] [facility] 11/28/2014 13:27:59 2 Breast Surgery completed Brianna Monaco [place] [facility] 02/13/2016 12:04:32 Imaging Results None recorded. Procedure Notes None recorded. Medical Equipment None Reported. Allergies Allergen ID Allergen Name Allergen Category Reaction Reaction Severity Criticality Documentation Date Start Date Code Code System Note Provider Name and Address Organization Details Recorded Time Substance with sulfonami de structure and antibacte rial mechanism of action (substanc e) medicatio n hives severe Not available 11/28/2014 04125 8003 SNOMED Bella Price MA [facility], [place] - [facility] 5 13:27:58 Medications Name Sig Start Date Stop Date Status Note LastModified by Organization Details LastModified Time hydrocodone 7.5 mg-ibuprofe n 200 mg tablet 02/11 completed Not Available Not Available Not Available trazodone 50 mg tablet TAKE 1 TABLET BY MOUTH NIGHTLY active Not Available Not Available No t Available tizanidine 4 mg tablet Take 1 tablet twice a day by oral route. 2024 active Not Available Not Available Not Avai lable hydrocodone 5 mg-acetamin ophen 325 mg tablet TAKE 1 TABLET BY MOUTH ONCE DAILY NEEDED FOR PAIN 02/28 completed Not Available Not Available Not Available lisinopril 20 mg tablet TAKE 1 TABLET BY MOUTH ONCE DAILY IN THE MORNING AND 1/2 TABLET IN THE EVENING active Not Available Not Available No t Available prednisone 20 mg tablet Take 2 tablets every day by oral route for 5 days. 05/10 completed Not Available Not Available Not Available Zithromax Z-Kenrick 250 mg tablet Take 1 dose pk by oral route as directed. 04/21 completed Not Available Not Available Not Available ciprofloxac in 250 mg tablet TAKE [...] inhalatio n route as needed, for wheezing. 05/10 completed Not Available Not Available Not Available cefdinir 300 mg capsule 02/11 completed [...] in Arterial blood by Pulse oximetry Systolic And Diastolic Provider Name and Address Organization Details Last Updated DateTime 5 156.21 cm 27.8 kg/m2 13349.1 4 g 102 /min 99 % 99 % 126/62 mm[Hg] Itzel Navarrete MA [facility] 5 12:08:55 Date Recorded Body height Body mass index (BMI) Body weight Heart rate Oxygen saturation Oxygen saturation in Arterial blood by Pulse oximetry Systolic And Diastolic Provider Name and Address Organization Details Last Updated DateTime 5 156.21 cm 30 kg/m2 75950.1 7 g 105 /min 99 % 99 % 120/72 mm[Hg] Sandra Ibarra MA [facility] 5 16:12:27 Date Recorded Body height Body mass index (BMI) Body weight Heart rate Oxygen saturation Oxygen saturation in Arterial blood by Pulse oximetry Systolic And Diastolic Provider Name and Address Organization Details Last Updated DateTime 4 156.21 cm 27.2 kg/m2 46192.9 2 g 105 /min 96 % 96 % 104/80 mm[Hg] Mariya Simmons MA [facility] 4 12:23:47 Date Recorded Body height Body mass index (BMI) Body weight Heart rate Oxygen saturation Oxygen saturation in Arterial blood by Pulse oximetry Systolic And Diastolic Provider Name and Address Organization Details Last Updated DateTime 4 156.21 cm 27.9 kg/m2 22642.1 4 g 89 /min 99 % 99 % 126/78 mm[Hg] Mariya Simmons MA [facility] 4 12:08:54 Date Recorded Body height Body mass index (BMI) Body weight Heart rate Oxygen saturation Oxygen saturation in Arterial blood by Pulse oximetry Systolic And Diastolic Provider Name and Address Organization Details Last Updated DateTime 4 156.21 cm 27.8 kg/m2 84055.7 g 91 /min 97 % 97 % 118/70 mm[Hg] Sandra Ibarra MA [facility] 4 11:52:36 Social History Question Answer Notes LastModified by Organizat ion Details LastModified Time Tobacco Smoking Status Never Smoker Bella Price MA [facility] 11/28/2014 13:27:58 Do You Have An Advance Directive? No Information n ot available 11/28/2014 Are You Blind Or Do [...] No Information not available 10/03/2024 Are You Deaf Or Do You Have Serious Difficulty Hearing? Yes Information not available 02/29/2024 What Type Of Diet Are You Following? REGULAR Information n ot available 11/28/2014 Which Illicit Or Recreational Drugs Have You Used? Denies [email or web address] Information not available 02/13/2016 Education 10 Information no t available 11/28/2014 Are There Any Guns Present In Your Home? No Information not available 06/06/2024 Live Alone Or With Others? With Others Information not available 11/28/2014 What Was The Date Of Your Most Recent Tobacco Screening? 05/10/2025 Information not available 05/10/2025 How Many Children Do You Have? 4 [...] Low Information not available 11/28/2014 Do You Use Sunscreen Routinely? Yes Information not available 11/28/2014 Has Tobacco Cessation Counseling Been Provided? No [email or web address] Information not available 02/06/2025 How Many Years Have You Smoked Tobacco? 0 [email or web address] Information not available 02/13/2016 Sex: Female Functional Status Question Answer Note LastModified by Organizat ion Details LastModified Time Do you use any illicit or recreational drugs? No Information not available 10/03/2024 Do you or have you ever used any other forms of tobacco or nicotine? No Information not available 05/10/2025 What is your level of alcohol consumption? None Information not available 11/28/2014 Are you currently employed? No Information not available 11/28/2014 Are you able to care for yourself? Yes Information n ot available 02/29/2024 What is your exercise level? Occasional Information not available 11/28/2014 Mental Status Question Answer Note LastModified by Organization D etails LastModified Time Do you feel stressed (tense, restless, nervous, or anxious, or unable to sleep at night)? [id number] Information not available 02/29/2024 Family History Relationship Description Onset Age of [...] or 50 mcg/0.25mL dose 1 completed Itzel Navarrete [place], [place] [facility] 02/06/2025 12:12:01 COVID-19, mRNA, LNP-S, PF, 100 mcg/0.5mL dose or 50 mcg/0.25mL dose 2 completed Itzel Navarre[place] [facility] 02/06/2025 12:12:01 COVID-19, mRNA, LNP-S, bivalent, PF, 50 mcg/0.5 mL or 25mcg/0.25 mL dose 2 completed MELONY Ag[place], [place] [facility] 02/06/2025 12:12:01 RSV, recombinant, protein subunit RSVpreF, adjuvant reconstituted, 0.5 mL, PF 3 completed [place]ON[place] [facility] 02/06/2025 12:12:01 COVID-19, mRNA, LNP-S, PF, 50 mcg/0.5 mL 3 completed Itzel Navar[place] [facility] 02/06/2025 12:12:01 pneumococcal polysaccharide PPV23 8 completed Itzel [place] [facility] 02/06/2025 12:12:01 Pneumococcal conjugate PCV 13 3 completed Itzel Nav[place] [facility] 02/06/2025 12:12:01 zoster live 5 completed Itzel Navar[place] [facility] 02/06/2025 12:12:01 Influenza, high-dose, trivalent, PF 7 completed Itzel Navar[place] [facility] 02/06/2025 12:12:01 Influenza, high-dose, trivalent, PF 6 completed Itzel Navar[place] [facility] 02/06/2025 12:12:01 Influenza, high-dose, trivalent, PF 9 completed Itzel Navar[place] [facility] 02/06/2025 12:12:01 [...] SNOMED-CT Code Diagnosis ICD10 Code Diagnosis Note [id number] MD Aramis Schultz (PROCESS ARTIST) [address] [place] [address] 11/28/2014 12:50:52 11/28/2014 14:25:42 Gynecologic examination 99611981 Atrophic vaginitis 80907982 Menopausal syndrome 287089384 Personal h istory of primary malignant neoplasm of breast 449300173 [id number] MD Aramis Schultz (PROCESS ARTIST) [address] [place] [address] 02/13/2016 11:10:45 02/13/2016 16:31:00 Personal history of primary malignant neoplasm of breast 897413496 Z85.3 Chronic constipation 236 135344 K59.00 K59.09 [id number] Pj Herrmann MD [facility] (PROCESS ARTIST) [address] [place] [address] 02/11/2017 11:40:15 02/12/2017 14:48:32 Screening mammography 67600410 Z12.31 personal hx of breast cancer right side Personal h istory of primary malignant neoplasm of breast 098734747 Z85.3 Irritable bowel syndrome 37075222 K58.9 Chronic id iopathic constipation 26087655 K59.04 [id number] Ruel Andrew MD [facility] [employer] [facility] [place] [address] [place] [address] 02/29/2024 14:01:25 02/29/2024 15:21:04 Essential hypertension 58583910 I10 Anxiety 69829129 F41.9 Insomnia 934530770 G47.0 0 Dyslipidemia 600784760 E 78.5 Chronic rhinitis 4095137 6 J31.0 [id number] Ruel Andrew MD [facility] [employer] [facility] [place] [address] [place] [address] 06/06/2024 11:50:23 06/06/2024 13:42:06 Palpitations 96516941 R00.2 Anxiety 25702361 F41.9 Chest pain 83539906 R07. 9 Essential hypertension 51927930 I10 [id number] Ruel Andrew MD [facility] [employer] [facility] [place] [address] [place] [address] 07/04/2024 11:14:58 07/04/2024 13:14:58 Body mass index 25-29 - overweight 991526378 Z68.25 27.9 BMI Essential hypertension 58724095 I10 Anxiety 59072562 F41.9 [id number] Ruel Andrew MD [facility] [employer] [facility] [place] [address] [facility] [place] [address] 10/03/2024 11:01:29 10/03/2024 13:29:46 Body mass index 25-29 - overweight 436545600 Z68.27 Overweight 468401448 E66 .3 Dyslipidemia 470768679 E 78.5 Essential hypertension 23973877 I10 Anxiety 65083068 F41.9 Insomnia 940388074 G47.0 0 [id number] Ruel Andrew MD [facility] e - [place] [address] [place] [address] 02/06/2025 11:54:02 02/06/2025 12:37:03 Body mass index 25-29 - overweight 904268789 Z68.27 Overweight 572281526 E66 .3 Pain of le ft knee joint 4258592332 39317 M25.562 Essential hypertension 19637279 I10 Palpitations 46417809 R0 0.2 Anxiety 15310458 F41.9 Dyslipidemia 585381814 E 78.5 Insomnia 224233187 G47.0 0 [id number] Ruel Andrew MD [facility] (Adult Med) [address] [place] [address] 05/10/2025 15:37:03 05/10/2025 16:52:37 Body mass index 30+ - obesity 209207327 Z68.30 Obese class I 1106900441 56973 E66.811 Thoracic back pain 56113 8004 M54.6 Health Concerns Section Related Observation LastModified by Organization Detai ls LastModified Time None Recorded Concern Status LastModified by Organization Details LastModified Time None Recorded Advance Directives Directive N: Payers Insurance Date Sequence Insurance Name Policy Number Policy Mtz Covered Member ID Mtz Member ID Guarantor Name 02/29/2024 SLIDING FEE SCHEDULE - DISCOUNT Fay Mccormick 05/10/2025 1 [employer] (MEDICARE REPLACEMENT/A DVANTAGE - HMO) [id number] Fay Mccormick [id number] Fay Mccormick 05/10/2025 1 [facility] (MEDICARE REPLACEMENT HMO) [id number] Fay Mccormick [id number] Fay Mccormick 02/29/2024 1 *SELF PAY* Pao Mccormick Notes Date Note Type Note Provider Name and Address Organization Details Recorded Time 06/06/2024 text/html hypertension no headache no dizziness. She has had some atypical chest pain had some palpitations over the past several weeks. Does not feel like she is going to pass out does not get sweaty nothing seems to be particularly consistent with what brings it on. Anxiety has been high Ruel Andrew MD Attn: Accounting,[address] [facility], [place], [address], [facility] 06/19/2024 22:12:35 07/04/2024 text/html short interval follow-up no chest pain Ruel Andrew MD Attn: Accounting,[address] [facility] [facility], [place], [address], [facility] - [facility] 07/10/2024 17:34:42 10/03/2024 text/html insomnia doing fine on current medical regimen without side effects hypertension blood pressure well controlled anxiety chronic doing well on current medical regimen. Her rhinitis is doing good dyslipidemia taking the rosuvastatin there is no side effects of any of the medications Ruel Andrew MD Attn: Accounting,[address] [facility], [place], [address], [facility] - [facility] 11/04/2024 21:10:04 02/06/2025 text/html Follow up of her medical problems her anxiety seems to be doing fine insomnia stable trying to take her rosuvastatin and follow a low-fat diet. Her chronic rhinitis with the montelukast is manageable. Hypertension no headache or dizziness and no side effects from her medication. Her anxiety is stable with her current medical regimen. She has been having off and on knee pain through the years and getting slowly worse not sure if she wants to see anybody just yet it is not giving out to swells from time to time and causes some pain that is [id number] Ruel Andrew MD Attn: Accounting,[address] [facility], [place], [address], [place] [facility] 03/11/2025 17:55:13 OBGyn Episode Ob Episode Information Episode Created Date Number of Fetuses Patient Bloodtype Patient rh Status Prepregnancy Weight lbs Domestic Partner Domestic Partner Phone Father Name [employer] Manager Status 02/12/20 17 1 CLOSED Fetus Data First Name Last Name Admitted to NICU Weight (g) Sex Living Outcome Pediatric Complications Fetus ID Race Codes Race Delivery Type M Full Term [id number] Vaginal Domenic Calculation Initial Domenic Date Initial [...] Domestic Partner Domestic Partner Phone Father Name [employer] Manager Status 02/12/20 17 1 CLOSED Fetus Data First Name Last Name Admitted to NICU Weight (g) Sex Living Outcome Pediatric Complications Fetus ID Race Codes Race Delivery Type M Full Term [id number] Vaginal Domenic Calculation Initial Domenic Date Initial [...] Domestic Partner Domestic Partner Phone Father Name [employer] Manager Status 02/12/20 17 1 CLOSED Fetus Data First Name Last Name Admitted to NICU Weight (g) Sex Living Outcome Pediatric Complications Fetus ID Race Codes Race Delivery Type M Full Term 06642 Vaginal Domenic Calculation Initial Domenic Date Initial [...] Domestic Partner Domestic Partner Phone Father Name [employer] Manager Status 02/12/20 17 1 CLOSED Fetus Data First Name Last Name Admitted to NICU Weight (g) Sex Living Outcome Pediatric Complications Fetus ID Race Codes Race Delivery Type F Full Term 76867 Vaginal Domenic Calculation Initial Domenic Date Initial [...]
--- OUTSIDE RECORDS SUMMARY | 2025-05-11 12:10 | XMS_ITS | Data Portability ---
Author Organization [facility] eleni, Main Office Address [address] [place] [address] Care Team Providers Care Construction Project Administrator Name Role Phone RUEL ANDREW Primary Care Provider RUEL ANDREW Referring Provider Assessment Encounter Date Assessment Date Assessment LastModified by Organization Details LastModified Time 05/28/2023 05/28/2023 Back neck is her little bit but she wants no further workup at this time mammogram ordered blood work ordered increase her Xanax to t.i.d. given her 's deteriorating status follow-up with nv in 6 months [id number] Not available 05/29/2023 08:19:12 09/10/2023 09/10/2023 Will give her Vicodin to use sparingly keep follow-up Not available 09/14/2023 22:17:36 Plan of Treatment Reminders Order Date Submit Date Provider Last Modified By Organization Details Last Modified Time Details Appointments None recorded. Lab CBC w/ auto diff 2022 023 [facility] Not available 18:35:58 lipid panel, serum 2022 023 [facility] Not available 3 20:02:44 CMP, serum or plasma 2022 023 [facility] Not available 20:02:50 Referral None recorded. Procedures None recorded. Surgeries None recorded. Imaging MAMMO, screening, digital, bilateral 2022 023 [facility] ([facility]), [address] [place], [address], 12:31:47 Medication Orders None recorded. Patient TargetsNo targets recorded. Patient InstructionsNo instructions recorded. Reason for Referral None Reported. Results Created Date Observation Date Name Description Value Unit Range Abnormal Flag Note LastModifiedBy Organization Detail LastModifiedTime 12/05/19 22 12/05/2021 COMPR EHENS CARA METAB OLIC PANEL carbon dioxide 28 mmol/ L 22-30 Not Available [facility] (Lab) [address] [place], [address], 12/05/2021 21:15:36 12/05/19 22 12/05/2021 COMPR EHENS ACRA METAB OLIC PANEL sodium 136 mmol/ L 137-14 5 low Not Available [facility] (Lab) [address] [place], [address], 12/05/2021 21:15:36 12/05/19 22 12/05/2021 COMPR EHENS CARA METAB OLIC PANEL potassium 4.3 mmol/ L 3.5-5. 1 Not Available [facility] (Lab) [address] [place], [address], 12/05/2021 21:15:36 12/05/19 22 12/05/2021 COMPR EHENS CARA METAB OLIC PANEL chloride 103 mmol/ L 98-107 Not Available [facility] (Lab) [address] [place], [address], 12/05/2021 21:15:36 12/05/19 22 12/05/2021 COMPR EHENS CARA METAB OLIC PANEL agap 9.3 mmol/ L 14-22 low Not Available [facility] (Lab) [address] [place], [address], 12/05/2021 21:15:36 12/05/19 22 12/05/2021 COMPR EHENS CARA METAB OLIC PANEL glucose 110 mg/dL 70-99 high Not Available [facility] (Lab) [address] [place], [address], 12/05/2021 21:15:36 12/05/19 22 12/05/2021 COMPR EHENS CARA METAB OLIC PANEL BUN 13 mg/dL 8-19 Not Available [facility] (Lab) [address], [place], [address], 12/05/2021 21:15:36 12/05/19 22 12/05/2021 COMPR EHENS CARA METAB OLIC PANEL creatinine 0.67 mg/dL 0.66-1 .25 Not Available [facility] (Lab) [address], [place], [address], 12/05/2021 21:15:36 12/05/19 22 12/05/2021 COMPR EHENS CARA METAB OLIC PANEL GFR >60 Refer ence Range : [place] ge GFR Healt hy Adult : >60 mL/mi n/1.7 3 m2 Chron ic Kidne y Disea se: 15-60 mL/mi n/1.7 3 m2 Kidne y Failu re: <15/m L/min /1.73 m2 www.n iddk. nih.g ov The MDRD study equat ion has not been valid ated in child jennyfer <18 years of age; pregn ant women ; the elder ly >85 years of age; or in some racia l or ethni c subgr oups, such as [facility] nics. Outsi de the valid ated vinicio eters , estim ated GFR is less accur ate, requi ring clini cathryn judgm ent on a case- by-ca se basis . Clini cathryn inter preta tion for other races and ages must be made by the clini phani. The MDRD study equat ion has not been valid ated for the evalu ation of serum creat inine relat ed to nutri rhianna l statu s or medic ation usage . For perso ns <18 years of age, a pedia tric GFR calcu lator is avail able on the F websi te: https :[email or web address] w.abe harris.o rg/pr ofess ional s/kdo qi/gf r_cal culat or Not Available [facility] (Lab) [address] [place], [address], 12/05/2021 21:15:36 12/05/19 22 12/05/2021 COMPR EHENS CARA METAB OLIC PANEL alkaline phosphatase 88 U/L 38-126 Not Available [facility] (Lab) [address] [place], [address], 12/05/2021 21:15:36 12/05/19 22 12/05/2021 COMPR EHENS CARA METAB OLIC PANEL alanine aminotransfe rase 19 U/L 0-35 Not Available [facility] (Lab) [address] [place], [address], 12/05/2021 21:15:36 12/05/19 22 12/05/2021 COMPR EHENS CARA METAB OLIC PANEL aspartate aminotransfe rase 28 U/L 15-37 Not Available [facility] (Lab) [address] [place], [address], 12/05/2021 21:15:36 12/05/19 22 12/05/2021 COMPR EHENS CARA METAB OLIC PANEL bilirubin, total 0.60 mg/dL 0.20-1 .30 Not Available [facility] (Lab) [address] [place], [address], 12/05/2021 21:15:36 12/05/19 22 12/05/2021 COMPR EHENS CARA METAB OLIC PANEL calcium 9.1 mg/dL 8.4-10 .2 Not Available [facility] (Lab) [address] [place], [address], 12/05/2021 21:15:36 12/05/19 22 12/05/2021 COMPR EHENS CARA METAB OLIC PANEL total protein 7.3 g/dL 6.3-8. 2 Not Available [facility] (Lab) [address] [place], [address], 12/05/2021 21:15:36 12/05/19 22 12/05/2021 COMPR EHENS CARA METAB OLIC PANEL albumin 4.3 g/dL 3.0-4. 4 Not Available [facility] (Lab) [address] [place], [address], 12/05/2021 21:15:36 12/05/19 22 12/05/2021 COMPR EHENS CARA METAB OLIC PANEL globulin 3.0 g/dL 2.6-4. 2 Not Available [facility] (Lab) [address] [place], [address], 12/05/2021 21:15:36 12/05/19 22 12/05/2021 COMPR EHENS CARA METAB OLIC PANEL A/G ratio 1.4 ratio 1.0-2. 0 Not Available [facility] (Lab) [address] [place], [address], 12/05/2021 21:15:36 12/05/19 22 12/05/2021 LIPID PANEL cholesterol 214 mg/dL 140-19 9 high NIH ALEXYS NSUS RECOM MENDA TION FOR NIDHI STERO L: ADULT CHILD LOW RISK: <200 <170 BORDE RLINE : <200- 239 ----- HIGH RISK: >240 >200 Not Available [facility] (Lab) [address] [place], [address], 12/05/2021 21:15:40 12/05/19 22 12/05/2021 LIPID PANEL triglyceride s 115 mg/dL 0-150 NIH ALEXYS NSUS REPOR T RECOM MENDA TION FOR TRIGL YCERI LAKEISHA: ADULT CHILD LOW RISK: <150 ----- BODER LINE: 150-1 99 ----- HIGH RISK: >200 ----- Not Available [facility] (Lab) [address] [place], [address], 12/05/2021 21:15:40 12/05/19 22 12/05/2021 LIPID PANEL HDL cholesterol 58 mg/dL 40- Not Available [facility] (Lab) [address] [place], [address], 12/05/2021 21:15:40 12/05/19 22 12/05/2021 LIPID PANEL LDL cholesterol, calculated 133 mg/dL 0-130 high NIH ALEXYS NSUS REPOR T RECOM MENDA TIONS FOR LDL: ADULT CHILD LOW RISK <130 <110 (OPTI MAL LDL) <100 ----- BORDE RLINE : 130-1 59 ----- HIGH RISK: >160 >130 A TRIGL YCERI DE RESUL T >400 INVAL IDATE S THE CALCU LATIO N FOR LDL FRACT IONAT ION - THE LDL RESUL T WILL NOT BE REPOR CARRIE. Not Available [facility] (Lab) [address] [place], [address], 12/05/2021 21:15:40 12/05/19 22 12/05/2021 VITAM IN D 25-HY DROXY [id number] 48.7 NG/mL 30-100 Vitam in D Statu s: Defic ient: <20 ng/mL Insuf ficie nt: 20-29 ng/mL Suffi cient : 30-10 0 ng/mL Not Available [facility] (Lab) [address] [place], [address], 12/05/2021 21:12:58 12/05/19 22 12/05/2021 CBC/C OMPLE TE BLD COUNT W/DIF F hematocrit 44.3 % 35.7-4 5.7 Not Available [facility] (Lab) [address] [place], [address], 12/05/2021 19:44:02 12/05/19 22 12/05/2021 CBC/C OMPLE TE BLD COUNT W/DIF F white blood cells 6.9 x10'3 /uL 4.2-10 .8 Not Available [facility] (Lab) [address] [place], [address], 12/05/2021 19:44:02 12/05/19 22 12/05/2021 CBC/C OMPLE TE BLD COUNT W/DIF F red blood cells 4.52 x10'6 /uL 3.80-5 .20 Not Available [facility] (Lab) [address] [place], [address], 12/05/2021 19:44:02 12/05/19 22 12/05/2021 CBC/C OMPLE TE BLD COUNT W/DIF F hemoglobin 14.3 g/dL 12.0-1 5.6 Not Available [facility] (Lab) [address] [place], [address], 12/05/2021 19:44:02 12/05/19 22 12/05/2021 CBC/C OMPLE TE BLD COUNT W/DIF F mean red cell volume 98.0 fL 82.0-9 9.0 Not Available [facility] (Lab) [address] [place], [address], 12/05/2021 19:44:02 12/05/19 22 12/05/2021 CBC/C OMPLE TE BLD COUNT W/DIF F mean red cell hemoglobin 31.6 pg 27.0-3 3.0 Not Available [facility] (Lab) [address] [place], [address], 12/05/2021 19:44:02 12/05/19 22 12/05/2021 CBC/C OMPLE TE BLD COUNT W/DIF F mean RBC HGB concentratio n 32.3 g/dL 31.0-3 6.0 Not Available [facility] (Lab) [address] [place], [address], 12/05/2021 19:44:02 12/05/19 22 12/05/2021 CBC/C OMPLE TE BLD COUNT W/DIF F red cell distribution width 13.1 % 11.8-1 5.5 Not Available [facility] (Lab) [address] [place], [address], 12/05/2021 19:44:02 12/05/19 22 12/05/2021 CBC/C OMPLE TE BLD COUNT W/DIF F platelets 351 x10'3 /uL 150-40 0 Not Available [facility] (Lab) [address] [place], [address], 12/05/2021 19:44:02 12/05/19 22 12/05/2021 CBC/C OMPLE TE BLD COUNT W/DIF F mean platelet volume 10.3 fL 9.0-12 .4 Not Available [facility] (Lab) [address] [place], [address], 12/05/2021 19:44:02 12/05/19 22 12/05/2021 CBC/C OMPLE TE BLD COUNT W/DIF F neutrophils 64.6 % 39.0-7 2.0 Not Available [facility] (Lab) [address] [place], [address], 12/05/2021 19:44:02 12/05/19 22 12/05/2021 CBC/C OMPLE TE BLD COUNT W/DIF F lymphocytes 21.2 % 16.0-4 7.0 Not Available [facility] (Lab) [address] [place], [address], 12/05/2021 19:44:02 12/05/19 22 12/05/2021 CBC/C OMPLE TE BLD COUNT W/DIF F monocytes 10.8 % 5.0-12 .0 Not Available [facility] (Lab) [address] [place], [address], 12/05/2021 19:44:02 12/05/19 22 12/05/2021 CBC/C OMPLE TE BLD COUNT W/DIF F eosinophils 1.9 % 1.0-7. 0 Not Available [facility] (Lab) [address] [place], [address], 12/05/2021 19:44:02 12/05/19 22 12/05/2021 CBC/C OMPLE TE BLD COUNT W/DIF F basophils 1.4 % 0.0-2. 0 Not Available [facility] (Lab) [address] [place], [address], 12/05/2021 19:44:02 12/05/19 22 12/05/2021 CBC/C OMPLE TE BLD COUNT W/DIF F immature granulocytes 0.1 % 0.00-0 .50 Not Available [facility] (Lab) [address] [place], [address], 12/05/2021 19:44:02 12/05/19 22 12/05/2021 CBC/C OMPLE TE BLD COUNT W/DIF F neutrophils, absolute count 4.48 x10'3 /uL 1.5-8. 0 Not Available [facility] (Lab) [address] [place], [address], 12/05/2021 19:44:02 12/05/19 22 12/05/2021 CBC/C OMPLE TE BLD COUNT W/DIF F lymphocytes, absolute count 1.47 x10'3 /uL 1.07-3 .43 Not Available [facility] (Lab) [address] [place], [address], 12/05/2021 19:44:02 12/05/19 22 12/05/2021 CBC/C OMPLE TE BLD COUNT W/DIF F monocytes, absolute count 0.75 x10'3 /uL 0.29-0 .99 Not Available [facility] (Lab) [address] [place], [address], 12/05/2021 19:44:02 12/05/19 22 12/05/2021 CBC/C OMPLE TE BLD COUNT W/DIF F eosinophils, absolute count 0.13 x10'3 /uL 0.02-0 .53 Not Available [facility] (Lab) [address] [place], [address], 12/05/2021 19:44:02 12/05/19 22 12/05/2021 CBC/C OMPLE TE BLD COUNT W/DIF F basophils, absolute count 0.10 x10'3 /uL 0.01-0 .08 high Not Available [facility] (Lab) [address] [place], [address], 12/05/2021 19:44:02 12/05/19 22 12/05/2021 CBC/C OMPLE TE BLD COUNT W/DIF F immature granulocytes ,absolute 0.01 x10'3 /uL 0.00-0 .05 Not Available [facility] (Lab) [address] [place], [address], 12/05/2021 19:44:02 12/05/19 22 12/05/2021 CBC/C OMPLE TE BLD COUNT W/DIF F nucleated red blood cells 0.0 % -0 Not Available [facility] (Lab) [address] [place], [address], 12/05/2021 19:44:02 12/05/19 22 12/05/2021 CBC/C OMPLE TE BLD COUNT W/DIF F NRBC# 0.00 x10'3 /uL Not Available [facility] (Lab) [address] [place], [address], 12/05/2021 19:44:02 06/03/20 22 06/03/2022 LIPID PANEL cholesterol 139 mg/dL 140-19 9 low NIH ALEXYS NSUS RECOM MENDA TION FOR NIDHI STERO L: ADULT CHILD LOW RISK: <200 <170 BORDE RLINE : <200- 239 ----- HIGH RISK: >240 >200 Not Available [facility] (Lab) [address] [place], [address], 06/03/2022 20:36:03 06/03/20 22 06/03/2022 LIPID PANEL triglyceride s 91 mg/dL 0-150 NIH ALEXYS NSUS REPOR T RECOM MENDA TION FOR TRIGL YCERI LAKEISHA: ADULT CHILD LOW RISK: <150 ----- BODER LINE: 150-1 99 ----- HIGH RISK: >200 ----- Not Available [facility] (Lab) [address] [place], [address], 06/03/2022 20:36:03 06/03/20 22 06/03/2022 LIPID PANEL HDL cholesterol 59 mg/dL 40- Not Available [facility] (Lab) [address] [place], [address], 06/03/2022 20:36:03 06/03/20 22 06/03/2022 LIPID PANEL LDL cholesterol, calculated 62 mg/dL 0-130 NIH ALEXYS NSUS REPOR T RECOM MENDA TIONS FOR LDL: ADULT CHILD LOW RISK <130 <110 (OPTI MAL LDL) <100 ----- BORDE RLINE : 130-1 59 ----- HIGH RISK: >160 >130 A TRIGL YCERI DE RESUL T >400 INVAL IDATE S THE CALCU LATIO N FOR LDL FRACT IONAT ION - THE LDL RESUL T WILL NOT BE REPOR CARRIE. Not Available [facility] (Lab) [address] [place], [address], 06/03/2022 20:36:03 06/03/20 22 06/03/2022 COMPR EHENS CARA METAB OLIC PANEL GFR >60 Refer ence Range : [place] ge GFR Healt hy Adult : >60 mL/mi n/1.7 3 m2 Chron ic Kidne y Disea se: 15-60 mL/mi n/1.7 3 m2 Kidne y Failu re: <15/m L/min /1.73 m2 www.n iddk. nih.g ov The MDRD study equat ion has not been valid ated in child jennyfer <18 years of age; pregn ant women ; the elder ly >85 years of age; or in some racia l or ethni c subgr oups, such as Hispa nics. Outsi de the valid ated vinicio eters , estim ated GFR is less accur ate, requi ring clini cathryn judgm ent on a case- by-ca se basis . Clini cathryn inter preta tion for other races and ages must be made by the clini phani. The MDRD study equat ion has not been valid ated for the evalu ation of serum creat inine relat ed to nutri rhianna l statu s or medic ation usage . For perso ns <18 years of age, a pedia tric GFR calcu lator is avail able on the [facility] websi te: https :[email or web address] w.abe [email or web address].o deisy/pr ofess ional s/kdo qi/gf r_cal culat or Not Available [facility] (Lab) [address] [place], [address], 06/03/2022 20:35:57 06/03/20 22 06/03/2022 COMPR EHENS CARA METAB OLIC PANEL sodium 138 mmol/ L 137-14 5 Not Available [facility] (Lab) [address] [place], [address], 06/03/2022 20:35:57 06/03/20 22 06/03/2022 COMPR EHENS CARA METAB OLIC PANEL potassium 4.2 mmol/ L 3.5-5. 1 Not Available [facility] (Lab) [address] [place], [address], 06/03/2022 20:35:57 06/03/20 22 06/03/2022 COMPR EHENS CARA METAB OLIC PANEL chloride 101 mmol/ L 98-107 Not Available [facility] (Lab) [address] [place], [address], 06/03/2022 20:35:57 06/03/20 22 06/03/2022 COMPR EHENS CARA METAB OLIC PANEL carbon dioxide 26 mmol/ L 22-30 Not Available [facility] (Lab) [address] [place], [address], 06/03/2022 20:35:57 06/03/20 22 06/03/2022 COMPR EHENS CARA METAB OLIC PANEL anion gap 15.2 mmol/ L 14-22 Not Available [facility] (Lab) [address] [place], [address], 06/03/2022 20:35:57 06/03/20 22 06/03/2022 COMPR EHENS CARA METAB OLIC PANEL glucose 104 mg/dL 70-99 high Not Available [facility] (Lab) [address] [place], [address], 06/03/2022 20:35:57 06/03/20 22 06/03/2022 COMPR EHENS ACRA METAB OLIC PANEL BUN 19 mg/dL 8-19 Not Available [facility] (Lab) [address] [place], [address], 06/03/2022 20:35:57 06/03/20 22 06/03/2022 COMPR EHENS CARA METAB OLIC PANEL creatinine 0.76 mg/dL 0.66-1 .25 Not Available [facility] (Lab) [address] [place], [address], 06/03/2022 20:35:57 06/03/20 22 06/03/2022 COMPR EHENS CARA METAB OLIC PANEL alkaline phosphatase 98 U/L 38-126 Not Available [facility] (Lab) [address] [place], [address], 06/03/2022 20:35:57 06/03/20 22 06/03/2022 COMPR EHENS CARA METAB OLIC PANEL alanine aminotransfe rase 21 U/L 0-35 Not Available [facility] (Lab) [address] [place], [address], 06/03/2022 20:35:57 06/03/20 22 06/03/2022 COMPR EHENS CARA METAB OLIC PANEL aspartate aminotransfe rase 30 U/L 15-37 Not Available [facility] (Lab) [address] [place], [address], 06/03/2022 20:35:57 06/03/20 22 06/03/2022 COMPR EHENS CARA METAB OLIC PANEL bilirubin, total 0.60 mg/dL 0.20-1 .30 Not Available [facility] (Lab) [address] [place], [address], 06/03/2022 20:35:57 06/03/20 22 06/03/2022 COMPR EHENS CARA METAB OLIC PANEL calcium 9.3 mg/dL 8.4-10 .2 Not Available [facility] (Lab) [address] [place], [address], 06/03/2022 20:35:57 06/03/20 22 06/03/2022 COMPR EHENS CARA METAB OLIC PANEL total protein 7.2 g/dL 6.3-8. 2 Not Available [facility] (Lab) [address] [place], [address], 06/03/2022 20:35:57 06/03/20 22 06/03/2022 COMPR EHENS CARA METAB OLIC PANEL albumin 4.3 g/dL 3.0-4. 4 Not Available [facility] (Lab) [address] [place], [address], 06/03/2022 20:35:57 06/03/20 22 06/03/2022 COMPR EHENS CARA METAB OLIC PANEL globulin 2.9 g/dL 2.6-4. 2 Not Available [facility] (Lab) [address] [place], [address], 06/03/2022 20:35:57 06/03/20 22 06/03/2022 COMPR EHENS CARA METAB OLIC PANEL A/G ratio 1.5 ratio 1.0-2. 0 Not Available [facility] (Lab) [address] [place], [address], 06/03/2022 20:35:57 06/03/20 22 06/03/2022 CBC/C OMPLE TE BLD COUNT W/DIF F hematocrit 41.1 % 35.7-4 5.7 Not Available [facility] (Lab) [address] [place], [address], 06/03/2022 20:05:31 06/03/20 22 06/03/2022 CBC/C OMPLE TE BLD COUNT W/DIF F white blood cells 6.9 x10'3 /uL 4.2-10 .8 Not Available [facility] (Lab) [address] [place], [address], 06/03/2022 20:05:31 06/03/20 22 06/03/2022 CBC/C OMPLE TE BLD COUNT W/DIF F red blood cells 4.26 x10'6 /uL 3.80-5 .20 Not Available [facility] (Lab) [address] [place], [address], 06/03/2022 20:05:31 06/03/20 22 06/03/2022 CBC/C OMPLE TE BLD COUNT W/DIF F hemoglobin 13.4 g/dL 12.0-1 5.6 Not Available [facility] (Lab) [address] [place], [address], 06/03/2022 20:05:31 06/03/20 22 06/03/2022 CBC/C OMPLE TE BLD COUNT W/DIF F mean red cell volume 96.5 fL 82.0-9 9.0 Not Available [facility] (Lab) [address] [place], [address], 06/03/2022 20:05:31 06/03/20 22 06/03/2022 CBC/C OMPLE TE BLD COUNT W/DIF F mean red cell hemoglobin 31.5 pg 27.0-3 3.0 Not Available [facility] (Lab) [address] [place], [address], 06/03/2022 20:05:31 06/03/20 22 06/03/2022 CBC/C OMPLE TE BLD COUNT W/DIF F mean platelet volume 10.2 fL 9.0-12 .4 Not Available [facility] (Lab) [address] [place], [address], 06/03/2022 20:05:31 06/03/20 22 06/03/2022 CBC/C OMPLE TE BLD COUNT W/DIF F mean RBC HGB concentratio n 32.6 g/dL 31.0-3 6.0 Not Available [facility] (Lab) [address] [place], [address], 06/03/2022 20:05:31 06/03/20 22 06/03/2022 CBC/C OMPLE TE BLD COUNT W/DIF F red cell distribution width 12.8 % 11.8-1 5.5 Not Available [facility] (Lab) [address] [place], [address], 06/03/2022 20:05:31 06/03/20 22 06/03/2022 CBC/C OMPLE TE BLD COUNT W/DIF F platelets 302 x10'3 /uL 150-40 0 Not Available [facility] (Lab) [address] [place], [address], 06/03/2022 20:05:31 06/03/20 22 06/03/2022 CBC/C OMPLE TE BLD COUNT W/DIF F neutrophils 63.4 % 39.0-7 2.0 Not Available [facility] (Lab) [address] [place], [address], 06/03/2022 20:05:31 06/03/20 22 06/03/2022 CBC/C OMPLE TE BLD COUNT W/DIF F lymphocytes 21.4 % 16.0-4 7.0 Not Available [facility] (Lab) [address] [place], [address], 06/03/2022 20:05:31 06/03/20 22 06/03/2022 CBC/C OMPLE TE BLD COUNT W/DIF F monocytes 10.0 % 5.0-12 .0 Not Available [facility] (Lab) [address] [place], [address], 06/03/2022 20:05:31 06/03/20 22 06/03/2022 CBC/C OMPLE TE BLD COUNT W/DIF F eosinophils 3.2 % 1.0-7. 0 Not Available [facility] (Lab) [address] [place], [address], 06/03/2022 20:05:31 06/03/20 22 06/03/2022 CBC/C OMPLE TE BLD COUNT W/DIF F basophils 1.7 % 0.0-2. 0 Not Available [facility] (Lab) [address] [place], [address], 06/03/2022 20:05:31 06/03/20 22 06/03/2022 CBC/C OMPLE TE BLD COUNT W/DIF F immature granulocytes 0.3 % 0.00-0 .50 Not Available [facility] (Lab) [address] [place], [address], 06/03/2022 20:05:31 06/03/20 22 06/03/2022 CBC/C OMPLE TE BLD COUNT W/DIF F neutrophils, absolute count 4.38 x10'3 /uL 1.5-8. 0 Not Available [facility] (Lab) [address] [place], [address], 06/03/2022 20:05:31 06/03/20 22 06/03/2022 CBC/C OMPLE TE BLD COUNT W/DIF F lymphocytes, absolute count 1.48 x10'3 /uL 1.07-3 .43 Not Available [facility] (Lab) [address] [place], [address], 06/03/2022 20:05:31 06/03/20 22 06/03/2022 CBC/C OMPLE TE BLD COUNT W/DIF F monocytes, absolute count 0.69 x10'3 /uL 0.29-0 .99 Not Available [facility] (Lab) [address] [place], [address], 06/03/2022 20:05:31 06/03/20 22 06/03/2022 CBC/C OMPLE TE BLD COUNT W/DIF F eosinophils, absolute count 0.22 x10'3 /uL 0.02-0 .53 Not Available [facility] (Lab) [address] [place], [address], 06/03/2022 20:05:31 06/03/20 22 06/03/2022 CBC/C OMPLE TE BLD COUNT W/DIF F basophils, absolute count 0.12 x10'3 /uL 0.01-0 .08 high Not Available [facility] (Lab) [address] [place], [address], 06/03/2022 20:05:31 06/03/20 22 06/03/2022 CBC/C OMPLE TE BLD COUNT W/DIF F immature granulocytes ,absolute 0.02 x10'3 /uL 0.00-0 .05 Not Available [facility] (Lab) [address] [place], [address], 06/03/2022 20:05:31 06/03/20 22 06/03/2022 CBC/C OMPLE TE BLD COUNT W/DIF F nucleated red blood cells 0.0 % -0 Not Available [facility] (Lab) [address] [place], [address], 06/03/2022 20:05:31 06/03/20 22 06/03/2022 CBC/C OMPLE TE BLD COUNT W/DIF F NRBC# 0.00 x10'3 /uL Not Available [facility] (Lab) [address] [place], [address], 06/03/2022 20:05:31 05/28/20 23 05/28/2023 CBC/C OMPLE TE BLD COUNT W/DIF F white blood cells 7.0 x10'3 /uL 4.2-10 .8 Not Available [facility] (Lab) [address] [place], [address], 05/28/2023 18:35:58 05/28/20 23 05/28/2023 CBC/C OMPLE TE BLD COUNT W/DIF F red blood cells 4.40 x10'6 /uL 3.80-5 .20 Not Available [facility] (Lab) [address] [place], [address], 05/28/2023 18:35:58 05/28/20 23 05/28/2023 CBC/C OMPLE TE BLD COUNT W/DIF F hemoglobin 13.6 g/dL 12.0-1 5.6 Not Available [facility] (Lab) [address] [place], [address], 05/28/2023 18:35:58 05/28/20 23 05/28/2023 CBC/C OMPLE TE BLD COUNT W/DIF F hematocrit 42.3 % 35.7-4 5.7 Not Available [facility] (Lab) [address] [place], [address], 05/28/2023 18:35:58 08/03/05/28/2023 CBC/C OMPLE TE BLD COUNT W/DIF F mean red cell volume 96.1 fL 82.0-9 9.0 Not Available [facility] (Lab) [address] [place], [address], 05/28/2023 18:35:58 05/28/20 23 05/28/2023 CBC/C OMPLE TE BLD COUNT W/DIF F mean red cell hemoglobin 30.9 pg 27.0-3 3.0 Not Available [facility] (Lab) [address] [place], [address], 05/28/2023 18:35:58 05/28/2005/28/2023 CBC/C OMPLE TE BLD COUNT W/DIF F mean RBC HGB concentratio n 32.2 g/dL 31.0-3 6.0 Not Available [facility] (Lab) [address] [place], [address], 05/28/2023 18:35:58 05/28/20 23 05/28/2023 CBC/C OMPLE TE BLD COUNT W/DIF F red cell distribution width 13.2 % 11.8-1 5.5 Not Available [facility] (Lab) [address] [place], [address], 05/28/2023 18:35:58 05/28/2005/28/2023 CBC/C OMPLE TE BLD COUNT W/DIF F platelets 312 x10'3 /uL 150-40 0 Not Available [facility] (Lab) [address] [place], [address], 05/28/2023 18:35:58 05/28/2005/28/2023 CBC/C OMPLE TE BLD COUNT W/DIF F mean platelet volume 10.3 fL 9.0-12 .4 Not Available [facility] (Lab) [address] [place], [address], 05/28/2023 18:35:58 05/28/20 23 05/28/2023 CBC/C OMPLE TE BLD COUNT W/DIF F neutrophils 64.5 % 39.0-7 2.0 Not Available [facility] (Lab) [address] [place], [address], 05/28/2023 18:35:58 05/28/20 23 05/28/2023 CBC/C OMPLE TE BLD COUNT W/DIF F lymphocytes 20.6 % 16.0-4 7.0 Not Available [facility] (Lab) [address] [place], [address], 05/28/2023 18:35:58 05/28/20 23 05/28/2023 CBC/C OMPLE TE BLD COUNT W/DIF F monocytes 10.7 % 5.0-12 .0 Not Available [facility] (Lab) [address] [place], [address], 05/28/2023 18:35:58 05/28/20 23 05/28/2023 CBC/C OMPLE TE BLD COUNT W/DIF F eosinophils 2.7 % 1.0-7. 0 Not Available [facility] (Lab) [address] [place], [address], 05/28/2023 18:35:58 05/28/20 23 05/28/2023 CBC/C OMPLE TE BLD COUNT W/DIF F basophils 1.4 % 0.0-2. 0 Not Available [facility] (Lab) [address] [place], [address], 05/28/2023 18:35:58 05/28/2005/28/2023 CBC/C OMPLE TE BLD COUNT W/DIF F immature granulocytes 0.1 % 0.00-0 .50 Not Available [facility] (Lab) [address] [place], [address], 05/28/2023 18:35:58 05/28/20 23 05/28/2023 CBC/C OMPLE TE BLD COUNT W/DIF F neutrophils, absolute count 4.53 x10'3 /uL 1.5-8. 0 Not Available [facility] (Lab) [address] [place], [address], 05/28/2023 18:35:58 05/28/20 23 05/28/2023 CBC/C OMPLE TE BLD COUNT W/DIF F lymphocytes, absolute count 1.45 x10'3 /uL 1.07-3 .43 Not Available [facility] (Lab) [address] [place], [address], 05/28/2023 18:35:58 05/28/20 23 05/28/2023 CBC/C OMPLE TE BLD COUNT W/DIF F monocytes, absolute count 0.75 x10'3 /uL 0.29-0 .99 Not Available [facility] (Lab) [address] [place], [address], 05/28/2023 18:35:58 05/28/20 23 05/28/2023 CBC/C OMPLE TE BLD COUNT W/DIF F eosinophils, absolute count 0.19 x10'3 /uL 0.02-0 .53 Not Available [facility] (Lab) [address] [place], [address], 05/28/2023 18:35:58 05/28/20 23 05/28/2023 CBC/C OMPLE TE BLD COUNT W/DIF F basophils, absolute count 0.10 x10'3 /uL 0.01-0 .08 high Not Available [facility] (Lab) [address] [place], [address], 05/28/2023 18:35:58 05/28/20 23 05/28/2023 CBC/C OMPLE TE BLD COUNT W/DIF F immature granulocytes ,absolute 0.01 x10'3 /uL 0.00-0 .05 Not Available [facility] (Lab) [address] [place], [address], 05/28/2023 18:35:58 05/28/20 23 05/28/2023 CBC/C OMPLE TE BLD COUNT W/DIF F nucleated red blood cells 0.0 % -0 Not Available [facility] (Lab) [address] [place], [address], 05/28/2023 18:35:58 05/28/20 23 05/28/2023 CBC/C OMPLE TE BLD COUNT W/DIF F NRBC# 0.00 x10'3 /uL Not Available [facility] (Lab) [address] [place], [address], 05/28/2023 18:35:58 05/28/20 23 05/28/2023 LIPID PANEL cholesterol 145 mg/dL 140-19 9 NIH ALEXYS NSUS RECOM MENDA TION FOR NIDHI STERO L: ADULT CHILD LOW RISK: <200 <170 BORDE RLINE : <200- 239 ----- HIGH RISK: >240 >200 Not Available [facility] (Lab) [address] [place], [address], 05/28/2023 20:02:44 05/28/20 23 05/28/2023 LIPID PANEL triglyceride s 90 mg/dL 0-150 NIH ALEXYS NSUS REPOR T RECOM MENDA TION FOR TRIGL YCERI LAKEISHA: ADULT CHILD LOW RISK: <150 ----- BODER LINE: 150-1 99 ----- HIGH RISK: >200 ----- Not Available [facility] (Lab) [address] [place], [address], 05/28/2023 20:02:44 05/28/20 23 05/28/2023 LIPID PANEL HDL cholesterol 56 mg/dL 40- Not Available [facility] (Lab) [address] [place], [address], 05/28/2023 20:02:44 05/28/20 23 05/28/2023 LIPID PANEL LDL cholesterol, calculated 71 mg/dL 0-130 NIH ALEXYS NSUS REPOR T RECOM MENDA TIONS FOR LDL: ADULT CHILD LOW RISK <130 <110 (OPTI MAL LDL) <100 ----- BORDE RLINE : 130-1 59 ----- HIGH RISK: >160 >130 A TRIGL YCERI DE RESUL T >400 INVAL IDATE S THE CALCU LATIO N FOR LDL FRACT IONAT ION - THE LDL RESUL T WILL NOT BE REPOR CARRIE. Not Available [facility] (Lab) [address] [place], [address], 05/28/2023 20:02:44 05/28/20 23 05/28/2023 COMPR EHENS CARA METAB OLIC PANEL sodium 138 mmol/ L 137-14 5 Not Available [facility] (Lab) [address] [place], [address], 05/28/2023 20:02:50 05/28/20 23 05/28/2023 COMPR EHENS CARA METAB OLIC PANEL potassium 4.4 mmol/ L 3.5-5. 1 Not Available [facility] (Lab) [address] [place], [address], 05/28/2023 20:02:50 05/28/20 23 05/28/2023 COMPR EHENS CARA METAB OLIC PANEL chloride 104 mmol/ L 98-107 Not Available [facility] (Lab) [address] [place], [address], 05/28/2023 20:02:50 05/28/20 23 05/28/2023 COMPR EHENS CARA METAB OLIC PANEL carbon dioxide 27 mmol/ L 22-30 Not Available [facility] (Lab) [address] [place], [address], 05/28/2023 20:02:50 05/28/20 23 05/28/2023 COMPR EHENS CARA METAB OLIC PANEL anion gap 11.4 mmol/ L 14-22 low Not Available [facility] (Lab) [address] [place], [address], 05/28/2023 20:02:50 05/28/20 23 05/28/2023 COMPR EHENS CARA METAB OLIC PANEL glucose 104 mg/dL 70-99 high Not Available [facility] (Lab) [address] [place], [address], 05/28/2023 20:02:50 05/28/20 23 05/28/2023 COMPR EHENS CARA METAB OLIC PANEL BUN 17 mg/dL 8-19 Not Available [facility] (Lab) [address] [place], [address], 05/28/2023 20:02:50 05/28/20 23 05/28/2023 COMPR EHENS CARA METAB OLIC PANEL creatinine 0.74 mg/dL 0.66-1 .25 Not Available [facility] (Lab) [address] [place], [address], 05/28/2023 20:02:50 05/28/20 23 05/28/2023 COMPR EHENS CARA METAB OLIC PANEL GFR >60 Refer ence Range : [place] ge GFR Healt hy Adult : >60 mL/mi n/1.7 3 m2 Chron ic Kidne y Disea se: 15-60 mL/mi n/1.7 3 m2 Kidne y Failu re: <15/m L/min /1.73 m2 www.n iddk. nih.g ov The MDRD study equat ion has not been valid ated in child jennyfer <18 years of age; pregn ant women ; the elder ly >85 years of age; or in some racia l or ethni c subgr oups, such as Hispa nics. Outsi de the valid ated vinicio eters , estim ated GFR is less accur ate, requi ring clini cathryn judgm ent on a case- by-ca se basis . Clini cathryn inter preta tion for other races and ages must be made by the clini phani. The MDRD study equat ion has not been valid ated for the evalu ation of serum creat inine relat ed to nutri rhianna l statu s or medic ation usage . For perso ns <18 years of age, a pedia tric GFR calcu lator is avail able on the F websi te: https ://aldair w.abe manny.o rg/pr ofess ional s/kdo qi/gf r_cal culat or Not Available [facility] (Lab) [address] [place], [address], 05/28/2023 20:02:50 05/28/20 23 05/28/2023 COMPR EHENS CARA METAB OLIC PANEL alkaline phosphatase 101 U/L 38-126 Not Available [facility] (Lab) [address] [place], [address], 05/28/2023 20:02:50 05/28/20 23 05/28/2023 COMPR EHENS CARA METAB OLIC PANEL alanine aminotransfe rase 28 U/L 0-35 Not Available [facility] (Lab) [address] [place], [address], 05/28/2023 20:02:50 05/28/20 23 05/28/2023 COMPR EHENS CARA METAB OLIC PANEL aspartate aminotransfe rase 35 U/L 15-37 Not Available [facility] (Lab) [address] [place], [address], 05/28/2023 20:02:50 05/28/20 23 05/28/2023 COMPR EHENS CARA METAB OLIC PANEL bilirubin, total 0.50 mg/dL 0.20-1 .30 Not Available [facility] (Lab) [address] [place], [address], 05/28/2023 20:02:50 05/28/20 23 05/28/2023 COMPR EHENS CARA METAB OLIC PANEL calcium 9.2 mg/dL 8.4-10 .2 Not Available [facility] (Lab) [address] [place], [address], 05/28/2023 20:02:50 05/28/20 23 05/28/2023 COMPR EHENS CARA METAB OLIC PANEL total protein 7.4 g/dL 6.3-8. 2 Not Available [facility] (Lab) [address] [place], [address], 05/28/2023 20:02:50 05/28/20 23 05/28/2023 COMPR EHENS CARA METAB OLIC PANEL albumin 4.3 g/dL 3.0-4. 4 Not Available [facility] (Lab) [address] [place], [address], 05/28/2023 20:02:50 05/28/20 23 05/28/2023 COMPR EHENS CARA METAB OLIC PANEL globulin 3.1 g/dL 2.6-4. 2 Not Available [facility] (Lab) [address] [place], [address], 05/28/2023 20:02:50 05/28/20 23 05/28/2023 COMPR EHENS CARA METAB OLIC PANEL A/G ratio 1.4 ratio 1.0-2. 0 Not Available [facility] (Lab) [address] [place], [address], 05/28/2023 20:02:50 06/17/20 21 06/17/2021 MAMMO , scree delio, digit al, bilat eral [facility] [address] [place], [place] [address] [phone] Patien t Name: CLARI MCCORMICK J Access ion #: [id number] Sex: F : 1939 9 Locati on: RAD Attend ing Physic talia: ANASTASIA ANDREW Physic talia: ANASTASIA ANDREW Exam Date: 021 1:19 PM Exam Name: MG NDIAYE BREAST VIBHA BILAT Admitt ing Diagno sis(es ): MAMMOG SHELLY REPORT - FINAL EXAM: MG NDIAYE BREAST VIBHA BILAT HISTOR Y: screen ing 81-yea r-old female with no curren t breast compla ints. The patien t has a histor y of right- sided breast cancer status post radiat ion and lumpec marie of the right breast in 1992. The enmanuel t has a family histor y of breast cancer in her mother and in a sister . COMPAR JOSE: 2019, 2018, 2016 TECHNI QUE: Bilate ral CC and MLO views of the breast s were perfor med. Digita l Mammog shelly images were obtain ed. CAD (compu ter assist ed detect ion) was utiliz ed. 3D Digita l breast tomosy nthesi s was perfor med and used in the interp retati on of images . FINDIN GS: Page 1 of 3 [facility] Enmanuel zuniga Name: CLARI MCCORMICK Access ion #: [id number] Sex: F : 1939 9 Exam Date: 021 1:19 PM Exam Name: MG NDIAYE BREAST VIBHA BILAT Admitt ing Diagno sis(es ): There are scatte red areas of fibrog landul ar densit y. No new masses , develo ping asymme tries, suspic ious calcif icatio ns, or new areas of deepa ectura l distor tion are seen. Postop erativ e change s of right lumpec marie are re-jany ntifie d with stable deform ity versus previo us mammog shelly. IMPRES BOGDAN: BIRADS 2: Assess ment comple te. Benign findin gs. Recomm end annual screen ing mammog shelly. Accord ing to the [employer], yearly mammog javon are recomm ended starti ng at age 40 and contin uing as long as the woman is in good health . Clinic al Breast Exam should be part of the period ic health exam-a bout every 3 years for women in their 20s and 30s and every year for women 40 and over. Breast self-e xam is an option for women in their 20s. Any breast change noted on the breast self-e xam she would be report ed prompt ly [facility]. A negati ve mammog shelly report should not discou rage follow -up or biopsy of a clinic ally signif icant findin g and/or abnorm ality. Dense breast tissue may obscur e small neopla sms. This enmanuel zuniga has been entere d into a mammog shelly remind er system with a target date for her next mammog mary. Create d and electr onical ly signed by: Vipin padgett MD Signed Date: 3:13 PM (CT) Page 2 of 3 [facility] [place] Enmanuel zuniga Name: CLARI MCCORMICK Access ion #: [id number] Sex: F : 1939 9 Exam Date: 1:19 PM Exam Name: MG SCRN BREAST VIBHA BILAT Admitt ing Diagno sis(es ): Dictat ed by: Vipin padgett MD DD: 3:13 PM (CT) DT: 3:13 PM (CT) Page 3 of 3 [id number] [facility] (Imaging) [address] [place], [address], 12/24/2022 06:22:18 12/31/1912/09/2022 XR, lumbo sacra l spine , 4 or more view No observ ation record ed. Not Available 07/2023 12:02:30 12/31/1912/09/2022 DEXA, axial skele ton No observ ation record ed. [email or web address] Not Available 07/2023 12:02:16 10/08/20 23 10/08/2023 MAMMO , scree delio, digit al, bilat eral [facility] [address] [facility] [place] [address] [phone] Patien t Name: CLARI MCCORMICK TTE Access ion #: [id number] Sex: F : 1939 7 Dictat ed By: Haylie Arboleda Attend ing Physic talia: ANASTASIA ANDREW Orderi ng Physic talia: ANASTASIA ANDREW Exam Date: 2022 12:57 PM Exam Name: MG SCRN BREAST VIBHA BILAT Admitt ing Diagno sis(es ): SCREEN ING MAMMOG MARY WITH TOMOSY NTHESI S: REASON FOR EXAM: SCREEN ING MAMMOG MARY COMPAR JOSE: 21; 020 TECHNI QUE: Bilate ral CC and MLO views obtain ed. Images were obtain ed using a Digita l Tomosy nthesi s Unit. Standa rd 2D and 3D Tomosy nthesi s images were review ed. FINDIN GS: BREAST COMPOS ITION: There are scatte red areas of fibrog landul ar densit y in the bilate ral breast s. In the right breast , no asymme trical parenc hymal patter n, deepa ectura l distor tion, pleomo rphic microc alcifi cation s or masses . There are postsu rgical change s in the right breast . In the left breast , no asymme trical parenc hymal patter n, deepa ectura l distor tion, pleomo rphic microc alcifi cation s or masses . IMPRES BOGDAN: No findin gs of malign karolina. Recomm end annual mammog mary. BIRADS : 2 - Benign Electr onical ly Signed by: Haylie Arboleda at 2022 14:04: 18 PM Page 1 [facility] (Imaging) [address] [place], [address], 11/09/2023 12:31:46 Result Notes Documentation Provider Name and Address Organization Details Recorded Time Mammo, Screening, Digital, Bilateral : [facility] [address] [place] [address] Patient Name: IRMA MCCORMICK Sex: F : 1940 Location: [facility] Attending Physician: RUEL ANDREW Ordering Physician: RUEL ANDREW Exam Date: 06/17/2021 1:19 PM Exam Name: MG SENTHIL BLACKMAN Admitting Diagnosis(es): MAMMOGRAPHY REPORT - FINAL EXAM: MG SENTHIL BLACKMAN HISTORY: screening 81-year-old female with no current breast complaints. The patient has a history of right-sided breast cancer status post radiation and lumpectomy of the right breast in 1992. The patient has a family history of breast cancer in her mother and in a sister. COMPARISON: 12/19/2019, 12/01/2018, 07/01/2017 TECHNIQUE: Bilateral CC and MLO views of the breasts were performed. Digital Mammography images were obtained. CAD (computer assisted detection) was utilized. 3D Digital breast tomosynthesis was performed and used in the interpretation of images. FINDINGS: Page 1 of 3 [facility] Patient Name: IRMA MCCORMICK Sex: Nohemi : 1940 Exam Date: 06/17/2021 1:19 PM Exam Name: MG SENTHIL BLACKMAN Admitting Diagnosis(es): There are scattered areas of fibroglandular density. No new masses, developing asymmetries, suspicious calcifications, or new areas of architectural distortion are seen. Postoperative changes of right lumpectomy are re-identified with stable deformity versus previous mammography. IMPRESSION: BIRADS 2: Assessment complete. Benign findings. Recommend annual screening mammography. According to the [employer], yearly mammograms are recommended starting at age 40 and continuing as long as the woman is in good health. Clinical Breast Exam should be part of the periodic health exam-about every 3 years for women in their 20s and 30s and every year for women 40 and over. Breast self-exam is an option for women in their 20s. Any breast change noted on the breast self-exam she would be reported promptly to the patient's health care provider. A negative mammography report should not discourage follow-up or biopsy of a clinically significant finding and/or abnormality. Dense breast tissue may obscure small neoplasms. This patient has been entered into a mammography reminder system with a target date for her next mammogram. Created and electronically signed by: Vipin Espino MD Signed Date: 06/17/2021 3:13 PM (CT) Page 2 of 3 [facility] Patient Name: IRMA MCCORMICK Sex: F : 1940 Exam Date: 06/17/2021 1:19 PM Exam Name: MG NDIAYE BREAST VIBHA BILAT Admitting Diagnosis(es): Dictated by: Vipin Espino MD (CT) (CT) Page 3 of 3 Not Available [facility] 12/24/2022 06:22:20 Mammo, Screening, Digital, Bilateral : [place] [address] Patient Name: IRMA MCCORMICK Sex: F : 1940 Dictated By: Haylie Arboleda Attending Physician: RUEL ANDREW Ordering Physician: RUEL ANDREW Exam Date: 10/08/2023 12:57 PM Exam Name: MG NDIAYE BREAST VIBHA BILAT Admitting Diagnosis(es): SCREENING MAMMOGRAM WITH TOMOSYNTHESIS: REASON FOR EXAM: SCREENING MAMMOGRAM COMPARISON:06/17/2021; 12/19/2019 TECHNIQUE: Bilateral CC and MLO views obtained. Images were obtained using a Digital Tomosynthesis Unit. Standard 2D and 3D Tomosynthesis images were reviewed. FINDINGS: BREAST COMPOSITION: There are scattered areas of fibroglandular density in the bilateral breasts. In the right breast, no asymmetrical parenchymal pattern, architectural distortion, pleomorphic microcalcifications or masses. There are postsurgical changes in the right breast. In the left breast, no asymmetrical parenchymal pattern, architectural distortion, pleomorphic microcalcifications or masses. IMPRESSION: No findings of malignancy. Recommend annual mammogram. BIRADS: 2 - Benign Page 1 ADRIAN Zavala, [facility] eleni 11/09/2023 12:31:46 Problems Name Problem SNOMED Code Status Onset Date Resolution Date Notes Provider Name and Address Organization Details Recorded Time Benign essential hypertensi on 8903324 Active Not Available [facility] 3 01:29:47 Acute sinusitis 99748867 Active 2021 Not Available [facility] 3 01:29:47 Insomnia 761246838 Active Not Available [facility] 3 01:29:47 Sciatica 48661970 Active Not Available [facility] 3 01:29:47 Pure hyperchole sterolemia 093813876 Active Not Available [facility] 3 01:29:47 Low back pain 736946599 Active 2022 Not Available [facility] 3 01:29:48 Unable to cut own toenails 152487154 Active 2021 Not Available [facility] 3 01:29:48 Current tear of medial cartilage AND/OR meniscus of knee Active Not Available [facility] 3 01:29:48 Knee pain Completed Not Available [facility] 3 06:15:53 Vitamin D deficiency 84505922 Active 2021 Not Available [facility] 3 01:29:48 Anxiety 21966650 Active Not Available [facility] 3 01:29:48 Dysuria 82116803 Completed JONATHAN Conley, [place] - [facility] [employer] [facility] 3 14:47:30 Upper respirator y infection 24958172 Completed Not Available [facility] 3 06:15:54 Essential hypertensi on 83877774 Active 2021 Not Available [facility] 3 01:29:48 Urinary tract infectious disease 82804538 Completed Not Available [facility] 3 06:15:54 Pain in limb 07908931 Completed Not Available [facility] 3 06:15:54 Dysuria 16237657 Active 2022 Not Available [facility] 3 01:29:48 COVID-19 772765784 Active 2022 Ruel Andrew MD [address] [facility], [facility] [address], [place], [address] , [facility] [place] [employer] 3 16:01:05 Notes:breast cancer Problem Notes None recorded. Procedures Surgical History Date Name Laterality Status Provider Name and Address Organization Details Recorded Time 12/20/19 15 Most Recent Bone Density completed Not Available [facility] 12/24/2022 06:11:06 01/06/20 07 Date of Last Colonoscopy completed Not Available [facility] 12/24/2022 06:11:06 lumpectomy of right breast completed Not Available [facility] 12/24/2022 06:11:09 Imaging Results None recorded. Procedure Notes None recorded. Medical Equipment None Reported. Allergies Allergen ID Allergen Name Allergen Category Reaction Reaction Severity Criticality Documentation Date Start Date Code Code System Note Provider Name and Address Organization Details Recorded Time 25483 Substance with sulfonami de structure and antibacte rial mechanism of action (substanc e) medicatio n eye redness Not available Not available 12/24/2022 34239 8003 SNOMED Not Available [facility] 06:21:59 Medications Name Sig Start Date Stop Date Status Note LastModified by Organization Details LastModified Time hydrocodone 7.5 mg-ibuprofe n 200 mg tablet Take 1 tablet 3 times a day by oral route as needed. 02/11 completed Not Available Not Available Not Available prednisone 10 mg tablet take [id number], [id number], 7k7gtgm active Not Available Not Available No t Available doxycycline hyclate 100 mg capsule TAKE 1 CAPSULE BY MOUTH EVERY 12 HOURS UNTIL GONE 12/09 completed Not Available Not Available Not Available trazodone 50 mg tablet TAKE 1 TABLET BY MOUTH ONCE DAILY AT BEDTIME active Not Available Not Available No t Available azithromyci n 250 mg tablet Take 2 TABLEts the first day then 1/day 06/03 completed Not Available Not Available Not Available benzonatate 200 mg capsule Take 1 capsule 3 times a day by oral route for 7 days. 01/19 completed Not Available Not Available Not Available hydrocodone 5 mg-acetamin ophen 325 mg tablet TAKE 1 TABLET BY MOUTH ONCE DAILY NEEDED FOR PAIN active Not Available Not Available No t Available lisinopril 20 mg tablet TAKE 1 TABLET BY MOUTH IN THE MORNING AND TAKE 1/2 (ONE-HALF ) TAB IN THE EVENING active Not Available Not Available No t Available promethazin e 6.25 mg-codeine 10 mg/5 mL syrup 5ml q6hrs prn cough x 10days 04/01 completed Not Available Not Available Not Available ciprofloxac in 250 mg tablet TAKE 1 TABLET BY MOUTH TWICE DAILY FOR 7 DAYS active Not Available Not Available No t Available levofloxaci n 250 mg tablet Take 1 tablet every day by oral route for 5 days. active Not Available Not Available No t Available amlodipine 5 mg tablet TAKE 1 TABLET BY MOUTH ONCE DAILY active Not Available Not Available No t Available ciprofloxac in 500 mg tablet Take 1 tablet twice a day by oral route for 7 days. 11/25 completed Not Available Not Available Not Available Macrobid 100 mg capsule Take 1 capsule twice a day by oral route with meals for 7 days. 11/25 completed Not Available Not Available Not Available alprazolam 0.5 mg tablet TAKE 1 TABLET BY MOUTH THREE TIMES DAILY 2023 active Not Available Not Available Not Avai lable lisinopril 10 mg tablet TAKE 1 TABLET BY MOUTH ONCE DAILY active Not Available Not Available No t Available diclofenac sodium 75 mg tablet,izabel yed release 08/17 completed Not Available Not Available Not Available montelukast 10 mg tablet Take 1 tablet by mouth once daily active Not Available Not Available No t Available cefuroxime axetil 500 mg tablet Take 1 tablet twice a day by oral route for 10 days. active Not Available Not Available No t Available levofloxaci n 500 mg tablet Take 1 tablet every 24 hours by oral route. 05/17 completed Not Available Not Available Not Available methylpredn isolone 4 mg tablets in a dose pack take decreasin g doses as directed 08/12 completed Not Available Not Available Not Available Vitamin D2 1,250 mcg (50,000 unit) capsule Take 1 capsule every week by oral route. 01/19 completed Not Available Not Available Not Available cefdinir 300 mg capsule Take 1 capsule every 12 hours by oral route for 7 days. active Not Available Not Available No t Available fluticasone propionate 50 mcg/actuati on nasal spray,suspe nsion Jud 2 sprays every day by intranasa l route in the evening. active Not Available Not Available No t Available amoxicillin 875 mg-potassiu m clavulanate 125 mg tablet Take 1 tablet every 12 hours by oral route. 05/17 completed Not Available Not Available Not Available Pneumovax-2 3 25 mcg/0.5 mL injection syringe active Not Available Not Available Not Available rosuvastati n 10 mg tablet active Not Available Not Available Not Available Vitamin C 2019 active Not Available Not Available Not Avai lable calcium 2019 active Not Available Not Available Not Avai lable Vitamin D3 2019 active Not Available Not Available Not Avai lable Macrobid 08/12 completed Not Available Not Available Not Available Zostavax (PF) 19,400 unit/0.65 mL subcutaneou s suspension active Not Available Not Available N ot Available Linzess 145 mcg capsule 08/12 completed Not Available Not Available Not Available Hair, Skin and Nails Advanced 2019 active Not Available Not Available Not Avai lable Fluzone High-Dose 1181-0481 (PF) 180 mcg/0.5 mL intramuscul ar syringe active Not Available Not Available N ot Available Fluzone High-Dose 2018- (PF) 180 mcg/0.5 mL intramuscul ar syringe PHARMACIS T ADMINISTE RED IMMUNIZAT ION ADMINISTE RED AT TIME OF DISPENSIN G 11/15 completed Not Available Not Available Not Available BinaxNOW COVID-19 Ag Self Test kit Use as Directed on the Package 06/03 completed Not Available Not Available Not Available Paxlovid 300 mg (150 mg x 2)-100 mg tablets in a dose pack Take 1 dose pk by oral route. active Not Available Not Available No t Available Vitals Date Recorded Body mass index (BMI) Body height Heart rate Body temperature Body weight Systolic And Diastolic Provider Name and Address Organization Details Last Updated DateTime 2 29.7 kg/m2 154.94 cm 78 /min 97.2 [degF] 23543 g 122/68 mm[Hg] Not Available [facility] 3 06:11:55 Date Recorded Body mass index (BMI) Body height Heart rate Body temperature Body weight Systolic And Diastolic Provider Name and Address Organization Details Last Updated DateTime 3 28.3 kg/m2 154.94 cm 92 /min 97.5 [degF] 57471.8 6 g 142/88 mm[Hg] Not Available [facility] 3 06:11:55 Date Recorded Body mass index (BMI) Body height Heart rate Body temperature Body weight Systolic And Diastolic Provider Name and Address Organization Details Last Updated DateTime 1 30.6 kg/m2 154.94 cm 84 /min 97.3 [degF] 06678.9 6 g 126/70 mm[Hg] Not Available [facility] 3 06:11:54 Date Recorded Body height Body mass index (BMI) Body weight Body temperature Heart rate Oxygen saturation Oxygen saturation in Arterial blood by Pulse oximetry Systolic And Diastolic Provider Name and Address Organization Details Last Updated DateTime 3 154.94 cm 28.2 kg/m2 13493.2 6 g 97.6 [degF] 84 /min 99 % 99 % 124/80 mm[Hg] Keke Veronica RN [facility] 3 11:03:49 Date Recorded Body mass index (BMI) Body height Heart rate Body temperature Body weight Systolic And Diastolic Provider Name and Address Organization Details Last Updated DateTime 2 29.5 kg/m2 154.94 cm 80 /min 97.9 [degF] 81499.4 1 g 150/90 mm[Hg] Not Available [facility] 3 06:11:55 Date Recorded Body height Body mass index (BMI) Body weight Body temperature Heart rate Systolic And Diastolic Provider Name and Address Organization Details Last Updated DateTime 3 154.94 cm 27.4 kg/m2 42352.8 9 g 97.6 [degF] 95 /min 114/80 mm[Hg] ADRIAN Vail [place] [employer] [facility] 3 15:29:57 Social History Question Answer Notes LastModified by Organization Details LastModified Time Tobacco Smoking Status Never Smoker Not Available [facility] 12/24/2022 06:09:06 Do You Have An Advance Directive? No [id number] Information not available 12/24/2022 Are You Blind Or Do You Have Difficulty Seeing? No MIGRATION.0301 [id number] Information not available 12/24/2022 What Is Your Level Of Caffeine Consumption? None MIGRATION.0301 [id number] Information not available 12/24/2022 In The 14 Days Before Symptom Onset, Have You Had Close Contact With A Laboratory-confi rmed COVID-19 While That Case Was Ill? No MIGRATION.0301 [id number] Information not available 12/24/2022 In The 14 Days Before Symptom Onset, Have You Had Close Contact With A Person Who Is Under Investigation For COVID-19 While That Person Was Ill? No MIGRATION.0301 [id number] Information not available 12/24/2022 Are You Deaf Or Do You Have Serious Difficulty Hearing? No MIGRATION.0301 410055 Information not available 12/24/2022 What Type Of Diet Are You Following? REGULAR MIGRATION.030 105224 Information not available 12/24/2022 What Is The Highest Grade Or Level Of School You Have Completed Or The Highest Degree You Have Received? KY26566-9 MIGRATION.030 388880 Information not available 12/24/2022 Have There Been Any Changes To Your Family Or Social Situation? No MIGRATION.0301 858747 Information not available 12/24/2022 What Is The Fluoride Status Of Your Home? Unknown MIGRATION.0301 887995 Information not available 12/24/2022 Are There Any Guns Present In Your Home? No MIGRATION.0301 013222 Information not available 12/24/2022 Do You Use Insect Repellent Routinely? No MIGRATION.0301 798233 Information not available 12/24/2022 Where Do You Live? SingleLevelHouse With Basement MIGRATION.030 189318 Information not available 12/24/2022 Do You Have A Medical Power Of Payroll Coordinator? No MIGRATION.0301 [id number] Information not available 12/24/2022 What Was The Date Of Your Most Recent Tobacco Screening? 09/10/2023 [email or web address] Information not available 09/10/2023 Do You Have Any Pets? No MIGRATION.0301 [id number] Information not available 12/24/2022 What Is Your Relationship Status? MIGRATION.0301 720819 Information not available 12/24/2022 Do You Use Your Seat Belt Or Car Seat Routinely? Yes MIGRATION.0301 996334 Information not available 12/24/2022 Do You Have Smoke And Carbon Monoxide Detectors In Your Home? Yes MIGRATION.0301 488517 Information not available 12/24/2022 Are You Passively Exposed To Smoke? No MIGRATION.0301 117499 Information not available 12/24/2022 Are There Any Smokers In Your House? No MIGRATION.0301 826388 Information not available 12/24/2022 What Types Of Sporting Activities Do You Participate In? None MIGRATION.0301 200392 Information not available 12/24/2022 Do You Use Sunscreen Routinely? No MIGRATION.0301 811088 Information not available 12/24/2022 Has Tobacco Cessation Counseling Been Provided? No Not Needed -pt Never Smoked MIGRATION.0301 289429 Information not available 12/24/2022 Have You Recently Traveled Abroad? No MIGRATION.0301 895143 Information not available 12/24/2022 Do You Have Difficulty Walking Or Climbing Stairs? Yes MIGRATION.0301 698011 Information not available 12/24/2022 Do You Have Any Dietary Restrictions? No MIGRATION.0301 572110 Information not available 12/24/2022 Sex: Female Functional Status Question Answer Note LastModified by [employer] Details LastModified Time Do you use any illicit or recreational drugs? No MIGRATION.444606 4817 Information not available 12/24/2022 Do you or have you ever used any other forms of tobacco or nicotine? No MIGRATION.609125 8294 Information not available 12/24/2022 What is your level of alcohol consumption? None MIGRATION.978473 0878 Information not available 12/24/2022 Do you have transportation difficulties? No MIGRATION.711203 8785 Information not available 12/24/2022 Are you able to walk? YESWOREST MIGRATION.642687 3865 Information not available 12/24/2022 Do you have difficulty doing errands alone? No MIGRATION.435853 4189 Information not available 12/24/2022 Are you able to care for yourself? Yes MIGRATION.159361 1880 Information not available 12/24/2022 Do you have difficulty dressing or bathing? No MIGRATION.000179 5250 Information not available 12/24/2022 What is your exercise level? Occasional stays active as much as she can MIGRATION.780547 1559 Information not available 12/24/2022 Mental Status Question Answer Note LastModified by Organizat ion Details LastModified Time Do you feel stressed (tense, restless, nervous, or anxious, or unable to sleep at night)? [id number] MIGRATION.[id number] 26 Information not available 12/24/2022 Do you have difficulty concentrating, remembering or making decisions? No MIGRATION.[id number] 26 Information not available 12/24/2022 Family History Relationship Description Onset Age of this Age Resolved Age Notes LastModified by Organization Details LastModified Time Son Hypertensive disorder MIGRATION.640 [id number] Not available 12/24/2022 06:11:09 Mother Malignant tumor of breast MIGRATION.941 [id number] Not available 12/24/2022 06:11:09 Sister Malignant tumor of breast MIGRATION.019 [id number] Not available 12/24/2022 06:11:09 Sister Parkinson's disease MIGRATION.089 [id number] Not available 12/24/2022 06:11:09 Medical History Condition Response BLINDNESS N NERVE DISEASE N RHEUMATIC FEVER N BLADDER PROBLEMS N KIDNEY STONES N MRSA N OTHER # 1 N POLIO N LUNG DISEASE/DISORDER N HISTORY OF DRUG ABUSE N RADIATION / CHEMOTHERAPY N COPD N Other # 2 N BLOOD DISEASES N EAR OR HEARING PROBLEMS N MUMPS N SHINGLES N BOWEL PROBLEMS N DEPRESSION (INCLUDING POST ) N STROKE/TIA N ULCERS N BENIGN PROSTATIC HYPERPLASIA N MEASLES N HYPOTENSION N MYOCARDIAL INFARCTION N OBESITY N GERD/NAUSEA N ANEURYSM N URINARY/BLADDER/KIDNEY PROBLEMS N CORONARY ARTERY DISEASE (CAD) N ADDICTION CONCERNS N Impotence N ENDOMETRIOSIS N USE OF BLOOD THINNERS N SKIN PROBLEMS N GASTROINTESTINAL DISORDER N PERIPHERAL VASCULAR DISEASE N MUSCLE,JOINT OR BONE PROBLEMS N GASTROINTESTINAL BLEEDING N BLOOD CLOTS N ASTHMA N CATARACTS N ERECTILE DYSFUNCTION N VARICOSITIES N GI PROBLEMS N Low Testosterone N INFERTILITY N AIDS/HIV N CHEMOTHERAPY / RADIATION N LIVER DISEASE N MALE HYPOGONADISM N HYPERTENSION Y Deficiency N TOURETTE'S N ANXIETY DISORDER Y BLOOD TRANSFUSION N ANEMIA/BLOOD DISORDER N CHRONIC EAR INFECTIONS N BRONCHITIS N TUBERCULOSIS N GLAUCOMA N FOOT PROBLEM N DIVERTICULITIS N SLEEP APNEA N CHICKENPOX N INFECTIOUS DISEASE N PROSTATE N HEART ARRHYTHMIA N INSOMNIA Y HIGH CHOLESTEROL / HYPERLIPIDEMIA Y HYPERTHYROIDISM N EYE PROBLEMS N EDEMA N CHRONIC PAIN SYNDROME N HYPOTHYROIDISM N CONSTIPATION N CAROTID BLOCKAGE N BACK / NECK PROBLEMS Y HAVE YOU BEEN HOSPITALIZED OR SEEN IN [facility] IN THE PAST YEAR ? N ATHEROSCLEROSIS N BREAST PROBLEMS N DIALYSIS N ECZEMA N OSTEOPOROSIS N ARTHRITIS N APPENDICITIS N DIABETES, TYPE N BAD TEETH N ENT N HEARTBURN / REFLUX N AUTISM SPECTRUM DISORDER (ASD) N HEPATITIS / LIVER DISEASE N GOUT N SLEEP DISORDER N ALZHEIMER'S DISEASE N Brain Problems N HERPES N DEMENTIA N SEIZURES/EPILEPSY N HEADACHES/MIGRAINES N VASCULAR DISEASE N PACEMAKER N Blood Disorder N DIZZINESS N KIDNEY DISEASE N HEART DISEASE/HEART PROBLEMS N MULTIPLE SCLEROSIS N CARDIAC ARRHYTHMIA N CANCER: SPECIFY Y Gall Stones N ATRIAL FIBRILLATION N PULMONARY EMBOLISM N AUTOIMMUNE DISEASE N Gynecological History Statement/Question Response Date of Last Pap Date of Last Mammogram 06/17/2021 Date of Last Colonoscopy 01/05/2007 Most Recent Bone Density 12/20/2014 Obstetrics History GPAL:G 4 P 4 0 0 4 Type Value Full Term 4 Living 4 Total 4 Immunizations Vaccine Type Date Status Note Provider Nam e and Address Organization Details Recorded Time Pneumococcal conjugate PCV 13 3 completed Ruel Andrew MD [address] [place] [address], [facility] [address], [place], [address], [facility] 05/29/2023 08:18:14 Influenza, high-dose, quadrivalent, PF 3 completed Not Available [facility] 10/12/2023 01:29:48 COVID-19, mRNA, LNP-S, PF, 100 mcg/0.5mL dose or 50 mcg/0.25mL dose 3 completed Not Available [facility] 10/12/2023 01:29:48 RSV, recombinant, protein subunit RSVpreF, adjuvant reconstituted, 0.5 mL, PF 3 completed Not Available [facility] 10/12/2023 01:29:48 COVID-19, mRNA, LNP-S, PF, 100 mcg/0.5mL dose or 50 mcg/0.25mL dose 1 completed Not Available [facility] 10/12/2023 01:29:48 COVID-19, mRNA, LNP-S, PF, 100 mcg/0.5mL dose or 50 mcg/0.25mL dose 1 completed Not Available [facility] 10/12/2023 01:29:48 Influenza, high-dose, quadrivalent, PF 9 completed Not Available [facility] 10/12/2023 01:29:48 pneumococcal polysaccharide PPV23 8 completed Not Available [facility] 10/12/2023 01:29:48 Influenza, high-dose, trivalent, PF 8 completed Not Available [facility] 10/12/2023 01:29:48 COVID-19, mRNA, LNP-S, PF, 100 mcg/0.5mL dose or 50 mcg/0.25mL dose 2 completed Not Available [facility] 10/12/2023 01:29:48 zoster live 5 completed Not Available [facility] 10/12/2023 01:29:48 Influenza, high-dose, quadrivalent, PF 2 completed Not Available [facility] 10/12/2023 01:29:48 Influenza, high-dose, quadrivalent, PF 1 completed Not Available [facility] 10/12/2023 01:29:48 Influenza, high-dose, quadrivalent, PF 0 completed Not Available [facility] 10/12/2023 01:29:48 Influenza, high-dose, trivalent, PF 7 completed Not Available [facility] 10/12/2023 01:29:48 Influenza, high-dose, trivalent, PF 6 completed Not Available [facility] 10/12/2023 01:29:48 Influenza, split virus, quadrivalent, PF 5 completed Not Available [facility] 10/12/2023 01:29:48 Influenza, split virus, trivalent, PF 4 completed Not Available [facility] 10/12/2023 01:29:48 Influenza, split virus, trivalent, preservative 3 completed Not Available [facility] 10/12/2023 01:29:48 Past Encounters Encounter ID Performer Location Encounter Start Date Encounter Closed Date Diagnosis/Indication Diagnosis SNOMED-CT Code Diagnosis ICD10 Code Diagnosis Note [id number] MD ARIADNE Hawth[facility] [place] [address] [place] [address] [place] [address] 05/21/2021 00:00:00 05/21/2021 21:49:30 [id number] MD ARIADNE Hawthorne[facility] [place] [address] [facility] [place] [address] 12/05/2021 00:00:00 12/28/2021 21:03:[id number] [facility] [place] [address] [place] [address] [place] [address] 06/03/2022 00:00:00 06/08/2022 17:58:28 [id number] [facility] [place] [address] [place] [address] [place] [address] 05/28/2023 10:53:18 05/28/2023 11:58:48 Benign essential hypertension 0194866 I10 Screening mammography 24 984863 Z12.31 Administra tion of pneumococcal vaccine 17167235 Z23 Anxiety 25217737 F41.9 Pure hypercholesterolemia 890541173 E78.00 Low back pain 170303299 M54.[id number] [facility] Internal [facility] [address] [address] [facility] [place] [address] 09/10/2023 15:15:46 09/10/2023 16:43:28 Low back pain 402407199 M54.50 Health Concerns Section Related Observation LastModified by Organization Detai ls LastModified Time None Recorded Concern Status LastModified by Organization Details LastModified Time None Recorded Advance Directives Directive N: Payers Insurance Date Sequence Insurance Name Policy Number Policy Mtz Covered Member ID Mtz Member ID Guarantor Name 09/10/2023 1 [employer] (MEDICARE REPLACEMENT/ ADVANTAGE - HMO) Irma Mccormick [id number] Irma Mccormick Notes Date Note Type Note Provider Name and Address Organization Details Recorded Time 05/28/2023 text/html Low back pain about the same. Hypertension no headache or dizziness. Anxiety high has been having pulmonary fibrosis. Ruel Andrew MD [address] [facility], [place], [address], [facility] [employer] 05/29/2023 08:19:29 09/10/2023 text/html Back pain flared up she wants something to help get her through the holidays lots to do Ruel Andrew MD [address] [facility], [facility] [address], [place], [address], [facility] 09/14/2023 22:18:11 OBGyn Episode No OBEpisode recorded.
== END 2025-05-11 12:07 | disposition home or self-care (01) ==
PROVIDERS: PCP Internal Medicine; Visit Provider Internal Medicine
DX: M51.06 Intervertebral disc disorders with myelopathy, lumbar region (principal); M40.204 Unspecified kyphosis, thoracic region
CPT/HCPCS: 72072

== ENCOUNTER 2025-05-19 11:32 | Outpatient (CLI) | payer MEDICARE, SELFPAY ==
--- NOTE | ~2025-05-19 | XR_ITS ---
EXAM/PROCEDURE: XR chest 2V - 05/19/2025 11:55 CDT HISTORY: 85 years old Female with ACUTE ONSET CP, KNOWN SPINAL FX TECHNIQUE: Two view(s) of the chest. COMPARISON: None available. FINDINGS: LUNGS/ PLEURA: No focal consolidation. No appreciable pneumothorax or large pleural effusion. Mild bl unting of both costophrenic angles may be related to scarring versus small bilateral pleural effusion s. HEART/ MEDIASTINUM: Heart appears normal in size. Atherosclerotic calcifications are seen. BONES: Degenerative changes. OTHER: Visualized upper abdomen is unremarkable. Surgical clips in the right axilla. IMPRESSION: Mild blunting of both costophrenic angles may be related to scarring versus small bilateral pleural e ffusions. Reviewed, dictated and finalized at location A. IMPRESSION: Mild blunting of both costophrenic angles may be related to scarring versus sma ll bilateral pleural effusions.
--- OUTSIDE RECORDS SUMMARY | 2025-05-19 11:36 | XMS_ITS | Data Portability ---
Author Organization [facility] [employer], Main Office Address [address] [place] [address] Care Team Providers Care Adjunct Latin Professor Name Role Phone RUEL ANDREW Primary Care Provider RUEL ANDREW Referring Provider Assessment Encounter Date Assessment Date Assessment LastModified by Organization Details LastModified Time 05/28/2023 05/28/2023 Back neck is her little bit but she wants no further workup at this time mammogram ordered blood work ordered increase her Xanax to t.i.d. given her 's deteriorating status follow-up with wa in 6 months [email or web address] Not available 05/29/2023 08:19:12 09/10/2023 09/10/2023 Will give her Vicodin to use sparingly keep follow-up [email or web address] Not available 09/14/2023 22:17:36 Plan of Treatment [...] [facility]), [address] [place], [address], 12:31:47 Medication Orders None recorded. Patient TargetsNo targets recorded. Patient InstructionsNo instructions recorded. Reason for Referral None Reported. Results Created Date Observation Date Name Description Value Unit Range Abnormal Flag Note LastModifiedBy Organization Detail LastModifiedTime 12/05/19 22 12/05/2021 COMPR EHENS CARA METAB OLIC PANEL carbon dioxide 28 mmol/ L 22-30 Not Available [facility] (Lab) [address] [place], [address], 12/05/2021 21:15:36 12/05/19 22 12/05/2021 COMPR EHENS CARA METAB OLIC PANEL sodium 136 mmol/ L 137-14 5 low Not Available [facility] (Lab) [address] [place], [address], 12/05/2021 21:15:36 12/05/19 22 12/05/2021 COMPR EHENS CARA METAB OLIC PANEL potassium 4.3 mmol/ L 3.5-5. 1 Not Available [facility] (Lab) [address] [place], [address], 12/05/2021 21:15:36 12/05/19 22 12/05/2021 COMPR EHENS CARA METAB OLIC PANEL chloride 103 mmol/ L 98-107 Not Available [facility] (Lab) [address] [place], [address], 12/05/2021 21:15:36 12/05/19 22 12/05/2021 COMPR EHENS CARA METAB OLIC PANEL agap 9.3 mmol/ L 14-22 low Not Available [facility] (Lab) [address] [place], [address], 12/05/2021 21:15:36 12/05/19 22 12/05/2021 COMPR EHENS CARA METAB OLIC PANEL glucose 110 mg/dL 70-99 high Not Available [facility] (Lab) [address] [place], [address], 12/05/2021 21:15:36 12/05/19 22 12/05/2021 COMPR EHENS CARA METAB OLIC PANEL BUN 13 mg/dL 8-19 Not Available [facility] (Lab) [address], [place], [address], 12/05/2021 21:15:36 12/05/19 22 12/05/2021 COMPR EHENS CARA METAB OLIC PANEL creatinine 0.67 mg/dL 0.66-1 .25 Not Available [facility] (Lab) [address] [place], [address], 12/05/2021 21:15:36 12/05/19 22 12/05/2021 COMPR EHENS CARA METAB OLIC PANEL GFR >60 Refer ence Range : [place] ge GFR Healt hy Adult : >60 [...] or ethni c subgr oups, such as [facility] nics. Outsi de the valid ated vinicio [...] s/kdo qi/gf r_cal culat or Not Available [facility] (Lab) [address] [place], [address], 12/05/2021 21:15:36 12/05/19 22 12/05/2021 COMPR EHENS CARA METAB OLIC PANEL alkaline phosphatase 88 U/L 38-126 Not Available [facility] (Lab) [address] [place], [address], 12/05/2021 21:15:36 12/05/19 22 12/05/2021 COMPR EHENS CARA METAB OLIC PANEL alanine aminotransfe rase 19 U/L 0-35 Not Available [facility] (Lab) [address] [place], [address], 12/05/2021 21:15:36 12/05/19 22 12/05/2021 COMPR EHENS CARA METAB OLIC PANEL aspartate aminotransfe rase 28 U/L 15-37 Not Available [facility] (Lab) [address] [place], [address], 12/05/2021 21:15:36 12/05/19 22 12/05/2021 COMPR EHENS CARA METAB OLIC PANEL bilirubin, total 0.60 mg/dL 0.20-1 .30 Not Available [facility] (Lab) [address] [place], [address], 12/05/2021 21:15:36 12/05/19 22 12/05/2021 COMPR EHENS CARA METAB OLIC PANEL calcium 9.1 mg/dL 8.4-10 .2 Not Available [facility] (Lab) [address] [place], [address], 12/05/2021 21:15:36 12/05/19 22 12/05/2021 COMPR EHENS CARA METAB OLIC PANEL total protein 7.3 g/dL 6.3-8. 2 Not Available [facility] (Lab) [address] [place], [address], 12/05/2021 21:15:36 12/05/19 22 12/05/2021 COMPR EHENS CARA METAB OLIC PANEL albumin 4.3 g/dL 3.0-4. 4 Not Available [facility] (Lab) [address] [place], [address], 12/05/2021 21:15:36 12/05/19 22 12/05/2021 COMPR EHENS CARA METAB OLIC PANEL globulin 3.0 g/dL 2.6-4. 2 Not Available [facility] (Lab) [address] [place], [address], 12/05/2021 21:15:36 12/05/19 22 12/05/2021 COMPR EHENS CARA METAB OLIC PANEL A/G ratio 1.4 ratio 1.0-2. 0 Not Available [facility] (Lab) [address] [place], [address], 12/05/2021 21:15:36 12/05/19 22 12/05/2021 LIPID PANEL cholesterol 214 mg/dL 140-19 9 high NIH ALEXYS NSUS RECOM MENDA TION FOR NIDHI STERO L: ADULT CHILD LOW RISK: <200 <170 BORDE RLINE : <200- 239 ----- HIGH RISK: >240 >200 Not Available [facility] (Lab) [address] [place], [address], 12/05/2021 21:15:40 12/05/19 22 12/05/2021 LIPID PANEL triglyceride s 115 mg/dL 0-150 NIH ALEXYS NSUS REPOR T RECOM MENDA TION FOR TRIGL YCERI LAKEISHA: ADULT CHILD LOW RISK: <150 ----- BODER LINE: 150-1 99 ----- HIGH RISK: >200 ----- Not Available [facility] (Lab) [address] [place], [address], 12/05/2021 21:15:40 12/05/19 22 12/05/2021 LIPID PANEL HDL cholesterol 58 mg/dL 40- Not Available [facility] (Lab) [address] [place], [address], 12/05/2021 21:15:40 12/05/19 22 12/05/2021 LIPID PANEL [...] WILL NOT BE REPOR CARRIE. Not Available [facility] (Lab) [address] [place], [address], 12/05/2021 21:15:40 12/05/19 22 12/05/2021 VITAM IN D 25-HY DROXY [id number] 48.7 NG/mL 30-100 Vitam in D Statu s: Defic ient: <20 ng/mL Insuf ficie nt: 20-29 ng/mL Suffi cient : 30-10 0 ng/mL Not Available [facility] (Lab) [address] [place], [address], 12/05/2021 21:12:58 12/05/19 22 12/05/2021 CBC/C OMPLE TE BLD COUNT W/DIF F hematocrit 44.3 % 35.7-4 5.7 Not Available [facility] (Lab) [address] [place], [address], 12/05/2021 19:44:02 12/05/19 22 12/05/2021 CBC/C OMPLE TE BLD COUNT W/DIF F white blood cells 6.9 x10'3 /uL 4.2-10 .8 Not Available [facility] (Lab) [address] [place], [address], 12/05/2021 19:44:02 12/05/19 22 12/05/2021 CBC/C OMPLE TE BLD COUNT W/DIF F red blood cells 4.52 x10'6 /uL 3.80-5 .20 Not Available [facility] (Lab) [address] [place], [address], 12/05/2021 19:44:02 12/05/19 22 12/05/2021 CBC/C OMPLE TE BLD COUNT W/DIF F hemoglobin 14.3 g/dL 12.0-1 5.6 Not Available [facility] (Lab) [address] [place], [address], 12/05/2021 19:44:02 12/05/19 22 12/05/2021 CBC/C OMPLE TE BLD COUNT W/DIF F mean red cell volume 98.0 fL 82.0-9 9.0 Not Available [facility] (Lab) [address] [place], [address], 12/05/2021 19:44:02 12/05/19 22 12/05/2021 CBC/C OMPLE TE BLD COUNT W/DIF F mean red cell hemoglobin 31.6 pg 27.0-3 3.0 Not Available [facility] (Lab) [address] [place], [address], 12/05/2021 19:44:02 12/05/19 22 12/05/2021 CBC/C OMPLE TE BLD COUNT W/DIF F mean RBC HGB concentratio n 32.3 g/dL 31.0-3 6.0 Not Available [facility] (Lab) [address] [place], [address], 12/05/2021 19:44:02 12/05/19 22 12/05/2021 CBC/C OMPLE TE BLD COUNT W/DIF F red cell distribution width 13.1 % 11.8-1 5.5 Not Available [facility] (Lab) [address] [place], [address], 12/05/2021 19:44:02 12/05/19 22 12/05/2021 CBC/C OMPLE TE BLD COUNT W/DIF F platelets 351 x10'3 /uL 150-40 0 Not Available [facility] (Lab) [address] [place], [address], 12/05/2021 19:44:02 12/05/19 22 12/05/2021 CBC/C OMPLE TE BLD COUNT W/DIF F mean platelet volume 10.3 fL 9.0-12 .4 Not Available [facility] (Lab) [address] [place], [address], 12/05/2021 19:44:02 12/05/19 22 12/05/2021 CBC/C OMPLE TE BLD COUNT W/DIF F neutrophils 64.6 % 39.0-7 2.0 Not Available [facility] (Lab) [address] [place], [address], 12/05/2021 19:44:02 12/05/19 22 12/05/2021 CBC/C OMPLE TE BLD COUNT W/DIF F lymphocytes 21.2 % 16.0-4 7.0 Not Available [facility] (Lab) [address] [place], [address], 12/05/2021 19:44:02 12/05/19 22 12/05/2021 CBC/C OMPLE TE BLD COUNT W/DIF F monocytes 10.8 % 5.0-12 .0 Not Available [facility] (Lab) [address] [place], [address], 12/05/2021 19:44:02 12/05/19 22 12/05/2021 CBC/C OMPLE TE BLD COUNT W/DIF F eosinophils 1.9 % 1.0-7. 0 Not Available [facility] (Lab) [address] [place], [address], 12/05/2021 19:44:02 12/05/19 22 12/05/2021 CBC/C OMPLE TE BLD COUNT W/DIF F basophils 1.4 % 0.0-2. 0 Not Available [facility] (Lab) [address] [place], [address], 12/05/2021 19:44:02 12/05/19 22 12/05/2021 CBC/C OMPLE TE BLD COUNT W/DIF F immature granulocytes 0.1 % 0.00-0 .50 Not Available [facility] (Lab) [address] [place], [address], 12/05/2021 19:44:02 12/05/19 22 12/05/2021 CBC/C OMPLE TE BLD COUNT W/DIF F neutrophils, absolute count 4.48 x10'3 /uL 1.5-8. 0 Not Available [facility] (Lab) [address] [place], [address], 12/05/2021 19:44:02 12/05/19 22 12/05/2021 CBC/C OMPLE TE BLD COUNT W/DIF F lymphocytes, absolute count 1.47 x10'3 /uL 1.07-3 .43 Not Available [facility] (Lab) [address] [place], [address], 12/05/2021 19:44:02 12/05/19 22 12/05/2021 CBC/C OMPLE TE BLD COUNT W/DIF F monocytes, absolute count 0.75 x10'3 /uL 0.29-0 .99 Not Available [facility] (Lab) [address] [place], [address], 12/05/2021 19:44:02 12/05/19 22 12/05/2021 CBC/C OMPLE TE BLD COUNT W/DIF F eosinophils, absolute count 0.13 x10'3 /uL 0.02-0 .53 Not Available [facility] (Lab) [address] [place], [address], 12/05/2021 19:44:02 12/05/19 22 12/05/2021 CBC/C OMPLE TE BLD COUNT W/DIF F basophils, absolute count 0.10 x10'3 /uL 0.01-0 .08 high Not Available [facility] (Lab) [address] [place], [address], 12/05/2021 19:44:02 12/05/19 22 12/05/2021 CBC/C OMPLE TE BLD COUNT W/DIF F immature granulocytes ,absolute 0.01 x10'3 /uL 0.00-0 .05 Not Available [facility] (Lab) [address] [place], [address], 12/05/2021 19:44:02 12/05/19 22 12/05/2021 CBC/C OMPLE TE BLD COUNT W/DIF F nucleated red blood cells 0.0 % -0 Not Available [facility] (Lab) [address] [place], [address], 12/05/2021 19:44:02 12/05/19 22 12/05/2021 CBC/C OMPLE TE BLD COUNT W/DIF F NRBC# 0.00 x10'3 /uL Not Available [facility] (Lab) [address] [place], [address], 12/05/2021 19:44:02 06/03/20 22 06/03/2022 LIPID PANEL cholesterol 139 mg/dL 140-19 9 low NIH ALEXYS NSUS RECOM MENDA TION FOR NIDHI STERO L: ADULT CHILD LOW RISK: <200 <170 BORDE RLINE : <200- 239 ----- HIGH RISK: >240 >200 Not Available [facility] (Lab) [address] [place], [address], 06/03/2022 20:36:03 06/03/20 22 06/03/2022 LIPID PANEL triglyceride s 91 mg/dL 0-150 NIH ALEYXS NSUS REPOR T RECOM MENDA TION FOR TRIGL YCERI LAKEISHA: ADULT CHILD LOW RISK: <150 ----- BODER LINE: 150-1 99 ----- HIGH RISK: >200 ----- Not Available [facility] (Lab) [address] [place], [address], 06/03/2022 20:36:03 06/03/20 22 06/03/2022 LIPID PANEL HDL cholesterol 59 mg/dL 40- Not Available [facility] (Lab) [address] [place], [address], 06/03/2022 20:36:03 06/03/20 22 06/03/2022 LIPID PANEL [...] WILL NOT BE REPOR CARRIE. Not Available [facility] (Lab) [address] [place], [address], 06/03/2022 20:36:03 06/03/20 22 06/03/2022 COMPR EHENS CARA METAB OLIC PANEL GFR >60 Refer ence Range : [place] ge GFR Healt hy Adult : >60 [...] calcu lator is avail able on the [facility] websi te: [email or web address] :[email or web address] ofess ional s/kdo qi/gf r_cal culat or Not Available [facility] (Lab) [address] [place], [address], 06/03/2022 20:35:57 06/03/20 22 06/03/2022 COMPR EHENS CARA METAB OLIC PANEL sodium 138 mmol/ L 137-14 5 Not Available [facility] (Lab) [address] [place], [address], 06/03/2022 20:35:57 06/03/20 22 06/03/2022 COMPR EHENS CARA METAB OLIC PANEL potassium 4.2 mmol/ L 3.5-5. 1 Not Available [facility] (Lab) [address] [place], [address], 06/03/2022 20:35:57 06/03/20 22 06/03/2022 COMPR EHENS CARA METAB OLIC PANEL chloride 101 mmol/ L 98-107 Not Available [facility] (Lab) [address] [place], [address], 06/03/2022 20:35:57 06/03/20 22 06/03/2022 COMPR EHENS CARA METAB OLIC PANEL carbon dioxide 26 mmol/ L 22-30 Not Available [facility] (Lab) [address] [place], [address], 06/03/2022 20:35:57 06/03/20 22 06/03/2022 COMPR EHENS CARA METAB OLIC PANEL anion gap 15.2 mmol/ L 14-22 Not Available [facility] (Lab) [address] [place], [address], 06/03/2022 20:35:57 06/03/20 22 06/03/2022 COMPR EHENS CARA METAB OLIC PANEL glucose 104 mg/dL 70-99 high Not Available [facility] (Lab) [address] [place], [address], 06/03/2022 20:35:57 06/03/20 22 06/03/2022 COMPR EHENS CARA METAB OLIC PANEL BUN 19 mg/dL 8-19 Not Available [facility] (Lab) [address] [place], [address], 06/03/2022 20:35:57 06/03/20 22 06/03/2022 COMPR EHENS CARA METAB OLIC PANEL creatinine 0.76 mg/dL 0.66-1 .25 Not Available [facility] (Lab) [address] [place], [address], 06/03/2022 20:35:57 06/03/20 22 06/03/2022 COMPR EHENS CARA METAB OLIC PANEL alkaline phosphatase 98 U/L 38-126 Not Available [facility] (Lab) [address] [place], [address], 06/03/2022 20:35:57 06/03/20 22 06/03/2022 COMPR EHENS CARA METAB OLIC PANEL alanine aminotransfe rase 21 U/L 0-35 Not Available [facility] (Lab) [address] [place], [address], 06/03/2022 20:35:57 06/03/20 22 06/03/2022 COMPR EHENS CARA METAB OLIC PANEL aspartate aminotransfe rase 30 U/L 15-37 Not Available [facility] (Lab) [address] [place], [address], 06/03/2022 20:35:57 06/03/20 22 06/03/2022 COMPR EHENS CARA METAB OLIC PANEL bilirubin, total 0.60 mg/dL 0.20-1 .30 Not Available [facility] (Lab) [address] [place], [address], 06/03/2022 20:35:57 06/03/20 22 06/03/2022 COMPR EHENS CARA METAB OLIC PANEL calcium 9.3 mg/dL 8.4-10 .2 Not Available [facility] (Lab) [address] [place], [address], 06/03/2022 20:35:57 06/03/20 22 06/03/2022 COMPR EHENS CARA METAB OLIC PANEL total protein 7.2 g/dL 6.3-8. 2 Not Available [facility] (Lab) [address] [place], [address], 06/03/2022 20:35:57 06/03/20 22 06/03/2022 COMPR EHENS CARA METAB OLIC PANEL albumin 4.3 g/dL 3.0-4. 4 Not Available [facility] (Lab) [address] [place], [address], 06/03/2022 20:35:57 06/03/20 22 06/03/2022 COMPR EHENS CARA METAB OLIC PANEL globulin 2.9 g/dL 2.6-4. 2 Not Available [facility] (Lab) [address] [place], [address], 06/03/2022 20:35:57 06/03/20 22 06/03/2022 COMPR EHENS CARA METAB OLIC PANEL A/G ratio 1.5 ratio 1.0-2. 0 Not Available [facility] (Lab) [address] [place], [address], 06/03/2022 20:35:57 06/03/20 22 06/03/2022 CBC/C OMPLE TE BLD COUNT W/DIF F hematocrit 41.1 % 35.7-4 5.7 Not Available [facility] (Lab) [address] [place], [address], 06/03/2022 20:05:31 06/03/20 22 06/03/2022 CBC/C OMPLE TE BLD COUNT W/DIF F white blood cells 6.9 x10'3 /uL 4.2-10 .8 Not Available [facility] (Lab) [address] [place], [address], 06/03/2022 20:05:31 06/03/20 22 06/03/2022 CBC/C OMPLE TE BLD COUNT W/DIF F red blood cells 4.26 x10'6 /uL 3.80-5 .20 Not Available [facility] (Lab) [address] [place], [address], 06/03/2022 20:05:31 06/03/20 22 06/03/2022 CBC/C OMPLE TE BLD COUNT W/DIF F hemoglobin 13.4 g/dL 12.0-1 5.6 Not Available [facility] (Lab) [address] [place], [address], 06/03/2022 20:05:31 06/03/20 22 06/03/2022 CBC/C OMPLE TE BLD COUNT W/DIF F mean red cell volume 96.5 fL 82.0-9 9.0 Not Available [facility] (Lab) [address] [place], [address], 06/03/2022 20:05:31 06/03/20 22 06/03/2022 CBC/C OMPLE TE BLD COUNT W/DIF F mean red cell hemoglobin 31.5 pg 27.0-3 3.0 Not Available [facility] (Lab) [address] [place], [address], 06/03/2022 20:05:31 06/03/20 22 06/03/2022 CBC/C OMPLE TE BLD COUNT W/DIF F mean platelet volume 10.2 fL 9.0-12 .4 Not Available [facility] (Lab) [address] [place], [address], 06/03/2022 20:05:31 06/03/20 22 06/03/2022 CBC/C OMPLE TE BLD COUNT W/DIF F mean RBC HGB concentratio n 32.6 g/dL 31.0-3 6.0 Not Available [facility] (Lab) [address] [place], [address], 06/03/2022 20:05:31 06/03/20 22 06/03/2022 CBC/C OMPLE TE BLD COUNT W/DIF F red cell distribution width 12.8 % 11.8-1 5.5 Not Available [facility] (Lab) [address] [place], [address], 06/03/2022 20:05:31 06/03/20 22 06/03/2022 CBC/C OMPLE TE BLD COUNT W/DIF F platelets 302 x10'3 /uL 150-40 0 Not Available [facility] (Lab) [address] [place], [address], 06/03/2022 20:05:31 06/03/20 22 06/03/2022 CBC/C OMPLE TE BLD COUNT W/DIF F neutrophils 63.4 % 39.0-7 2.0 Not Available [facility] (Lab) [address] [place], [address], 06/03/2022 20:05:31 06/03/20 22 06/03/2022 CBC/C OMPLE TE BLD COUNT W/DIF F lymphocytes 21.4 % 16.0-4 7.0 Not Available [facility] (Lab) [address] [place], [address], 06/03/2022 20:05:31 06/03/20 22 06/03/2022 CBC/C OMPLE TE BLD COUNT W/DIF F monocytes 10.0 % 5.0-12 .0 Not Available [facility] (Lab) [address] [place], [address], 06/03/2022 20:05:31 06/03/20 22 06/03/2022 CBC/C OMPLE TE BLD COUNT W/DIF F eosinophils 3.2 % 1.0-7. 0 Not Available [facility] (Lab) [address] [place], [address], 06/03/2022 20:05:31 06/03/20 22 06/03/2022 CBC/C OMPLE TE BLD COUNT W/DIF F basophils 1.7 % 0.0-2. 0 Not Available [facility] (Lab) [address] [place], [address], 06/03/2022 20:05:31 06/03/20 22 06/03/2022 CBC/C OMPLE TE BLD COUNT W/DIF F immature granulocytes 0.3 % 0.00-0 .50 Not Available [facility] (Lab) [address] [place], [address], 06/03/2022 20:05:31 06/03/20 22 06/03/2022 CBC/C OMPLE TE BLD COUNT W/DIF F neutrophils, absolute count 4.38 x10'3 /uL 1.5-8. 0 Not Available [facility] (Lab) [address] [place], [address], 06/03/2022 20:05:31 06/03/20 22 06/03/2022 CBC/C OMPLE TE BLD COUNT W/DIF F lymphocytes, absolute count 1.48 x10'3 /uL 1.07-3 .43 Not Available [facility] (Lab) [address] [place], [address], 06/03/2022 20:05:31 06/03/20 22 06/03/2022 CBC/C OMPLE TE BLD COUNT W/DIF F monocytes, absolute count 0.69 x10'3 /uL 0.29-0 .99 Not Available [facility] (Lab) [address] [place], [address], 06/03/2022 20:05:31 06/03/20 22 06/03/2022 CBC/C OMPLE TE BLD COUNT W/DIF F eosinophils, absolute count 0.22 x10'3 /uL 0.02-0 .53 Not Available [facility] (Lab) [address] [place], [address], 06/03/2022 20:05:31 06/03/20 22 06/03/2022 CBC/C OMPLE TE BLD COUNT W/DIF F basophils, absolute count 0.12 x10'3 /uL 0.01-0 .08 high Not Available [facility] (Lab) [address] [place], [address], 06/03/2022 20:05:31 06/03/20 22 06/03/2022 CBC/C OMPLE TE BLD COUNT W/DIF F immature granulocytes ,absolute 0.02 x10'3 /uL 0.00-0 .05 Not Available [facility] (Lab) [address] [place], [address], 06/03/2022 20:05:31 06/03/20 22 06/03/2022 CBC/C OMPLE TE BLD COUNT W/DIF F nucleated red blood cells 0.0 % -0 Not Available [facility] (Lab) [address] [place], [address], 06/03/2022 20:05:31 06/03/20 22 06/03/2022 CBC/C OMPLE TE BLD COUNT W/DIF F NRBC# 0.00 x10'3 /uL Not Available [facility] (Lab) [address] [place], [address], 06/03/2022 20:05:31 05/28/20 23 05/28/2023 CBC/C OMPLE TE BLD COUNT W/DIF F white blood cells 7.0 x10'3 /uL 4.2-10 .8 Not Available [facility] (Lab) [address] [place], [address], 05/28/2023 18:35:58 05/28/20 23 05/28/2023 CBC/C OMPLE TE BLD COUNT W/DIF F red blood cells 4.40 x10'6 /uL 3.80-5 .20 Not Available [facility] (Lab) [address] [place], [address], 05/28/2023 18:35:58 05/28/20 23 05/28/2023 CBC/C OMPLE TE BLD COUNT W/DIF F hemoglobin 13.6 g/dL 12.0-1 5.6 Not Available [facility] (Lab) [address] [place], [address], 05/28/2023 18:35:58 05/28/20 23 05/28/2023 CBC/C OMPLE TE BLD COUNT W/DIF F hematocrit 42.3 % 35.7-4 5.7 Not Available [facility] (Lab) [address] [place], [address], 05/28/2023 18:35:58 08/03/05/28/2023 CBC/C OMPLE TE BLD COUNT W/DIF F mean red cell volume 96.1 fL 82.0-9 9.0 Not Available [facility] (Lab) [address] [place], [address], 05/28/2023 18:35:58 05/28/20 23 05/28/2023 CBC/C OMPLE TE BLD COUNT W/DIF F mean red cell hemoglobin 30.9 pg 27.0-3 3.0 Not Available [facility] (Lab) [address] [place], [address], 05/28/2023 18:35:58 05/28/2005/28/2023 CBC/C OMPLE TE BLD COUNT W/DIF F mean RBC HGB concentratio n 32.2 g/dL 31.0-3 6.0 Not Available [facility] (Lab) [address] [place], [address], 05/28/2023 18:35:58 05/28/20 23 05/28/2023 CBC/C OMPLE TE BLD COUNT W/DIF F red cell distribution width 13.2 % 11.8-1 5.5 Not Available [facility] (Lab) [address] [place], [address], 05/28/2023 18:35:58 05/28/2005/28/2023 CBC/C OMPLE TE BLD COUNT W/DIF F platelets 312 x10'3 /uL 150-40 0 Not Available [facility] (Lab) [address] [place], [address], 05/28/2023 18:35:58 05/28/2005/28/2023 CBC/C OMPLE TE BLD COUNT W/DIF F mean platelet volume 10.3 fL 9.0-12 .4 Not Available [facility] (Lab) [address] [place], [address], 05/28/2023 18:35:58 05/28/20 23 05/28/2023 CBC/C OMPLE TE BLD COUNT W/DIF F neutrophils 64.5 % 39.0-7 2.0 Not Available [facility] (Lab) [address] [place], [address], 05/28/2023 18:35:58 05/28/20 23 05/28/2023 CBC/C OMPLE TE BLD COUNT W/DIF F lymphocytes 20.6 % 16.0-4 7.0 Not Available [facility] (Lab) [address] [place], [address], 05/28/2023 18:35:58 05/28/20 23 05/28/2023 CBC/C OMPLE TE BLD COUNT W/DIF F monocytes 10.7 % 5.0-12 .0 Not Available [facility] (Lab) [address] [place], [address], 05/28/2023 18:35:58 05/28/20 23 05/28/2023 CBC/C OMPLE TE BLD COUNT W/DIF F eosinophils 2.7 % 1.0-7. 0 Not Available [facility] (Lab) [address] [place], [address], 05/28/2023 18:35:58 05/28/20 23 05/28/2023 CBC/C OMPLE TE BLD COUNT W/DIF F basophils 1.4 % 0.0-2. 0 Not Available [facility] (Lab) [address] [place], [address], 05/28/2023 18:35:58 05/28/2005/28/2023 CBC/C OMPLE TE BLD COUNT W/DIF F immature granulocytes 0.1 % 0.00-0 .50 Not Available [facility] (Lab) [address] [place], [address], 05/28/2023 18:35:58 05/28/20 23 05/28/2023 CBC/C OMPLE TE BLD COUNT W/DIF F neutrophils, absolute count 4.53 x10'3 /uL 1.5-8. 0 Not Available [facility] (Lab) [address] [place], [address], 05/28/2023 18:35:58 05/28/20 23 05/28/2023 CBC/C OMPLE TE BLD COUNT W/DIF F lymphocytes, absolute count 1.45 x10'3 /uL 1.07-3 .43 Not Available [facility] (Lab) [address] [place], [address], 05/28/2023 18:35:58 05/28/20 23 05/28/2023 CBC/C OMPLE TE BLD COUNT W/DIF F monocytes, absolute count 0.75 x10'3 /uL 0.29-0 .99 Not Available [facility] (Lab) [address] [place], [address], 05/28/2023 18:35:58 05/28/20 23 05/28/2023 CBC/C OMPLE TE BLD COUNT W/DIF F eosinophils, absolute count 0.19 x10'3 /uL 0.02-0 .53 Not Available [facility] (Lab) [address] [place], [address], 05/28/2023 18:35:58 05/28/20 23 05/28/2023 CBC/C OMPLE TE BLD COUNT W/DIF F basophils, absolute count 0.10 x10'3 /uL 0.01-0 .08 high Not Available [facility] (Lab) [address] [place], [address], 05/28/2023 18:35:58 05/28/20 23 05/28/2023 CBC/C OMPLE TE BLD COUNT W/DIF F immature granulocytes ,absolute 0.01 x10'3 /uL 0.00-0 .05 Not Available [facility] (Lab) [address] [place], [address], 05/28/2023 18:35:58 05/28/20 23 05/28/2023 CBC/C OMPLE TE BLD COUNT W/DIF F nucleated red blood cells 0.0 % -0 Not Available [facility] (Lab) [address] [place], [address], 05/28/2023 18:35:58 05/28/20 23 05/28/2023 CBC/C OMPLE TE BLD COUNT W/DIF F NRBC# 0.00 x10'3 /uL Not Available [facility] (Lab) [address] [place], [address], 05/28/2023 18:35:58 05/28/20 23 05/28/2023 LIPID PANEL cholesterol 145 mg/dL 140-19 9 NIH ALEXYS NSUS RECOM MENDA TION FOR NIDHI STERO L: ADULT CHILD LOW RISK: <200 <170 BORDE RLINE : <200- 239 ----- HIGH RISK: >240 >200 Not Available [facility] (Lab) [address] [place], [address], 05/28/2023 20:02:44 05/28/20 23 05/28/2023 LIPID PANEL triglyceride s 90 mg/dL 0-150 NIH ALEXYS NSUS REPOR T RECOM MENDA TION FOR TRIGL YCERI LAKEISHA: ADULT CHILD LOW RISK: <150 ----- BODER LINE: 150-1 99 ----- HIGH RISK: >200 ----- Not Available [facility] (Lab) [address] [place], [address], 05/28/2023 20:02:44 05/28/20 23 05/28/2023 LIPID PANEL HDL cholesterol 56 mg/dL 40- Not Available [facility] (Lab) [address] [place], [address], 05/28/2023 20:02:44 05/28/20 23 05/28/2023 LIPID PANEL [...] WILL NOT BE REPOR CARRIE. Not Available [facility] (Lab) [address] [place], [address], 05/28/2023 20:02:44 05/28/20 23 05/28/2023 COMPR EHENS CARA METAB OLIC PANEL sodium 138 mmol/ L 137-14 5 Not Available [facility] (Lab) [address] [place], [address], 05/28/2023 20:02:50 05/28/20 23 05/28/2023 COMPR EHENS CARA METAB OLIC PANEL potassium 4.4 mmol/ L 3.5-5. 1 Not Available [facility] (Lab) [address] [place], [address], 05/28/2023 20:02:50 05/28/20 23 05/28/2023 COMPR EHENS CARA METAB OLIC PANEL chloride 104 mmol/ L 98-107 Not Available [facility] (Lab) [address] [place], [address], 05/28/2023 20:02:50 05/28/20 23 05/28/2023 COMPR EHENS CARA METAB OLIC PANEL carbon dioxide 27 mmol/ L 22-30 Not Available [facility] (Lab) [address] [place], [address], 05/28/2023 20:02:50 05/28/20 23 05/28/2023 COMPR EHENS CARA METAB OLIC PANEL anion gap 11.4 mmol/ L 14-22 low Not Available [facility] (Lab) [address] [place], [address], 05/28/2023 20:02:50 05/28/20 23 05/28/2023 COMPR EHENS CARA METAB OLIC PANEL glucose 104 mg/dL 70-99 high Not Available [facility] (Lab) [address] [place], [address], 05/28/2023 20:02:50 05/28/20 23 05/28/2023 COMPR EHENS CARA METAB OLIC PANEL BUN 17 mg/dL 8-19 Not Available [facility] (Lab) [address] [place], [address], 05/28/2023 20:02:50 05/28/20 23 05/28/2023 COMPR EHENS CARA METAB OLIC PANEL creatinine 0.74 mg/dL 0.66-1 .25 Not Available [facility] (Lab) [address] [place], [address], 05/28/2023 20:02:50 05/28/20 23 05/28/2023 COMPR EHENS CARA METAB OLIC PANEL GFR >60 Refer ence Range : [place] ge GFR Healt hy Adult : >60 [...] s/kdo qi/gf r_cal culat or Not Available [facility] (Lab) [address] [place], [address], 05/28/2023 20:02:50 05/28/20 23 05/28/2023 COMPR EHENS CARA METAB OLIC PANEL alkaline phosphatase 101 U/L 38-126 Not Available [facility] (Lab) [address] [place], [address], 05/28/2023 20:02:50 05/28/20 23 05/28/2023 COMPR EHENS CARA METAB OLIC PANEL alanine aminotransfe rase 28 U/L 0-35 Not Available [facility] (Lab) [address] [place], [address], 05/28/2023 20:02:50 05/28/20 23 05/28/2023 COMPR EHENS CARA METAB OLIC PANEL aspartate aminotransfe rase 35 U/L 15-37 Not Available [facility] (Lab) [address] [place], [address], 05/28/2023 20:02:50 05/28/20 23 05/28/2023 COMPR EHENS CARA METAB OLIC PANEL bilirubin, total 0.50 mg/dL 0.20-1 .30 Not Available [facility] (Lab) [address] [place], [address], 05/28/2023 20:02:50 05/28/20 23 05/28/2023 COMPR EHENS CARA METAB OLIC PANEL calcium 9.2 mg/dL 8.4-10 .2 Not Available [facility] (Lab) [address] [place], [address], 05/28/2023 20:02:50 05/28/20 23 05/28/2023 COMPR EHENS CARA METAB OLIC PANEL total protein 7.4 g/dL 6.3-8. 2 Not Available [facility] (Lab) [address] [place], [address], 05/28/2023 20:02:50 05/28/20 23 05/28/2023 COMPR EHENS CARA METAB OLIC PANEL albumin 4.3 g/dL 3.0-4. 4 Not Available [facility] (Lab) [address] [place], [address], 05/28/2023 20:02:50 05/28/20 23 05/28/2023 COMPR EHENS CARA METAB OLIC PANEL globulin 3.1 g/dL 2.6-4. 2 Not Available [facility] (Lab) [address] [place], [address], 05/28/2023 20:02:50 05/28/20 23 05/28/2023 COMPR EHENS CARA METAB OLIC PANEL A/G ratio 1.4 ratio 1.0-2. 0 Not Available [facility] (Lab) [address] [place], [address], 05/28/2023 20:02:50 06/17/20 21 06/17/2021 MAMMO , scree delio, digit al, bilat eral [facility] [address] [place], [place] [address] [phone] Patien t Name: CLARI MCCORMICK J Access ion #: [id number] Sex: F : 1939 9 Locati [...] . FINDIN GS: Page 1 of 3 [facility] Enmanuel zuniga Name: CLARI MCCORMICK Access ion #: [id number] Sex: F : 1939 9 Exam [...] report ed prompt ly [facility]. A negati ve mammog shelly report [...] 3:13 PM (CT) Page 2 of 3 [facility] [place] Enmanuel zuniga Name: CLARI MCCORMICK Access ion #: [id number] Sex: F : 1939 9 Exam Date: 1:19 PM Exam Name: MG SCRN BREAST VIBHA BILAT Admitt ing Diagno sis(es ): Dictat ed by: Vipin padgtet MD DD: 3:13 PM (CT) DT: 3:13 PM (CT) Page 3 of 3 [id number] [facility] (Imaging) [address] [place], [address], 12/24/2022 06:22:18 12/31/1912/09/2022 XR, lumbo sacra l spine , 4 or more view No observ ation record ed. [email or web address] Not Available 07/2023 12:02:30 12/31/1912/09/2022 DEXA, axial skele ton No observ ation record ed. [email or web address] Not Available 07/2023 12:02:16 10/08/20 23 10/08/2023 MAMMO , scree delio, digit al, bilat eral [facility] [address] [facility] [place] [address] [phone] Patien t Name: CLARI MCCORMICK TTE Access ion #: [id number] Sex: F : 1939 7 Dictat [...] at 2022 14:04: 18 PM Page 1 [facility] (Imaging) [address] [place], [address], 11/09/2023 12:31:46 Result Notes Documentation Provider Name and Address Organization Details Recorded Time Mammo, Screening, Digital, Bilateral : [facility] [address] [place] [address] Patient Name: IRMA MCCORMICK Sex: F : 1940 Location: [facility] Attending Physician: RUEL ANDREW Ordering [...] of images. FINDINGS: Page 1 of 3 [facility] Patient Name: IRMA MCCORMICK Sex: Nohemi : [...] Recommend annual screening mammography. According to the [employer], yearly mammograms are recommended [...] 3:13 PM (CT) Page 2 of 3 [facility] Patient Name: IRMA MCCORMICK Sex: F : 1940 Exam Date: 06/17/2021 1:19 PM Exam Name: MG NDIAYE BREAST VIBHA BILAT Admitting Diagnosis(es): Dictated by: Vipin Espino MD (CT) (CT) Page 3 of 3 Not Available [facility] 12/24/2022 06:22:20 Mammo, Screening, Digital, Bilateral : [place] [address] Patient Name: IRMA MCCORMICK Sex: F : [...] BIRADS: 2 - Benign Page 1 ADRIAN Zavala null, Aibo [employer] [facility] 11/09/2023 12:31:46 Problems Name Problem SNOMED Code Status Onset Date Resolution Date Notes Provider Name and Address Organization Details Recorded Time Benign essential hypertensi on 1215465 Active Not Available [facility] 3 01:29:47 Insomnia 083157488 Active Not Available [facility] 3 01:29:47 Sciatica 85408258 Active Not Available [facility] 3 01:29:47 Pure hyperchole sterolemia 438916946 Active Not Available [facility] 3 01:29:47 Current tear of medial cartilage AND/OR meniscus of knee Active Not Available [facility] 3 01:29:48 Knee pain Completed Not Available [facility] 3 06:15:53 Anxiety 04229378 Active Not Available [facility] 3 01:29:48 Dysuria 34583244 Completed JONATHAN Conley, simplifyMD [facility] [employer] [facility] 3 14:47:30 Upper respirator y infection 00907384 Completed Not Available [facility] 3 06:15:54 Urinary tract infectious disease 53571588 Completed Not Available [facility] 3 06:15:54 Pain in limb 48877887 Completed Not Available [facility] 3 06:15:54 Unable to cut own toenails 494783542 Active 2021 Not Available [facility] 3 01:29:48 Vitamin D deficiency 30634832 Active 2021 Not Available [facility] 3 01:29:48 Acute sinusitis 53460099 Active 2021 Not Available [facility] 3 01:29:47 Essential hypertensi on 29256936 Active 2021 Not Available [facility] 3 01:29:48 Low back pain 176102409 Active 2022 Not Available [facility] 3 01:29:48 Dysuria 45310719 Active 2022 Not Available [facility] 3 01:29:48 COVID-19 984894751 Active 2022 Ruel Andrew MD [address] [facility], [facility] [address], [place], [address] , [facility] [employer] [facility] 3 16:01:05 Notes:breast cancer Problem Notes None recorded. Procedures Surgical History Date Name Laterality Status Provider Name and Address Organization Details Recorded Time 12/20/19 15 Most Recent Bone Density completed Not Available [facility] 12/24/2022 06:11:06 01/06/20 07 Date of Last Colonoscopy completed Not Available [facility] 12/24/2022 06:11:06 lumpectomy of right breast completed Not Available [facility] 12/24/2022 06:11:09 Imaging Results None recorded. Procedure Notes None recorded. Medical Equipment None Reported. Allergies Allergen ID Allergen Name Allergen Category Reaction Reaction Severity Criticality Documentation Date Start Date Code Code System Note Provider Name and Address Organization Details Recorded Time 48519 Substance with sulfonami de structure and antibacte rial mechanism of action (substanc e) medicatio n eye redness Not available Not available 12/24/2022 32371 8003 SNOMED Not Available [facility] 06:21:59 Medications Name Sig Start Date Stop Date Status Note LastModified by Organization Details LastModified Time hydrocodone 7.5 mg-ibuprofe n 200 mg tablet Take 1 tablet 3 times a day by oral route as needed. 02/11 completed Not Available Not Available Not Available prednisone 10 mg tablet take 1e0byke, 8l9gxww, 3x8cthd active Not Available Not Available No t [...] propionate 50 mcg/actuati on nasal spray,suspe nsion [place] 2 sprays every day by intranasa l [...] Not Available Not Avai lable Fluzone High-Dose [id number] (PF) 180 mcg/0.5 mL intramuscul ar syringe [...] kg/m2 154.94 cm 78 /min 97.2 [degF] 40117 g 122/68 mm[Hg] Not Available [facility] 3 06:11:55 Date Recorded Body mass index (BMI) Body height Heart rate Body temperature Body weight Systolic And Diastolic Provider Name and Address Organization Details Last Updated DateTime 3 28.3 kg/m2 154.94 cm 92 /min 97.5 [degF] 70054.8 6 g 142/88 mm[Hg] Not Available [facility] 3 06:11:55 Date Recorded Body mass index (BMI) Body height Heart rate Body temperature Body weight Systolic And Diastolic Provider Name and Address Organization Details Last Updated DateTime 1 30.6 kg/m2 154.94 cm 84 /min 97.3 [degF] 21979.9 6 g 126/70 mm[Hg] Not Available [facility] 3 06:11:54 Date Recorded Body height Body mass index (BMI) Body weight Body temperature Heart rate Oxygen saturation Oxygen saturation in Arterial blood by Pulse oximetry Systolic And Diastolic Provider Name and Address Organization Details Last Updated DateTime 3 154.94 cm 28.2 kg/m2 05150.2 6 g 97.6 [degF] 84 /min 99 % 99 % 124/80 mm[Hg] Keke Veronica RN [facility] [employer] [facility] 3 11:03:49 Date Recorded Body mass index (BMI) Body height Pain severity - 0-10 verbal numeric rating [Score] - Reported Heart rate Body temperature Body weight Systolic And Diastolic Provider Name and Address Organization Details Last Updated DateTime 2 29.5 kg/m2 154.94 cm 0 80 /min 97.9 [degF] 03479.4 1 g 150/90 mm[Hg] Not Available [facility] 3 06:11:55 Date Recorded Body height Body mass index (BMI) Body weight Body temperature Heart rate Systolic And Diastolic Provider Name and Address Organization Details Last Updated DateTime 3 154.94 cm 27.4 kg/m2 09615.8 9 g 97.6 [degF] 95 /min 114/80 mm[Hg] ADRIAN [place] [employer] [facility] 3 15:29:57 Social History Question Answer Notes LastModified by Organization Details LastModified Time Tobacco Smoking Status Never Smoker Not Available [facility] 12/24/2022 06:09:06 Do You Have An Advance Directive? No MIGRATION.0301 [id number] Information not available 12/24/2022 Are You Blind Or Do You Have Difficulty Seeing? No MIGRATION.0301 700666 Information not available 12/24/2022 What Is Your Level Of Caffeine Consumption? None MIGRATION.0301 494999 Information not available 12/24/2022 In The 14 Days Before Symptom Onset, Have You Had Close Contact With A Laboratory-confi rmed COVID-19 While That Case Was Ill? No MIGRATION.0301 199573 Information not available 12/24/2022 In The 14 Days Before Symptom Onset, Have You Had Close Contact With A Person Who Is Under Investigation For COVID-19 While That Person Was Ill? No MIGRATION.0301 [id number] Information not available 12/24/2022 Are You Deaf Or Do You Have Serious Difficulty Hearing? No MIGRATION.0301 917835 Information not available 12/24/2022 What Type Of Diet Are You Following? REGULAR MIGRATION.0301 403642 Information not available 12/24/2022 What Is The Highest Grade Or Level Of School You Have Completed Or The Highest Degree You Have Received? AD85665-5 MIGRATION.030 181083 Information not available 12/24/2022 Have There Been Any Changes To Your Family Or Social Situation? No MIGRATION.0301 166327 Information not available 12/24/2022 What Is The Fluoride Status Of Your Home? Unknown MIGRATION.0301 517607 Information not available 12/24/2022 Are There Any Guns Present In Your Home? No MIGRATION.0301 078449 Information not available 12/24/2022 Do You Use Insect Repellent Routinely? No MIGRATION.0301 065257 Information not available 12/24/2022 Where Do You Live? SingleLevelHouse With Basement MIGRATION.030 985697 Information not available 12/24/2022 Do You Have A Medical Power Of Legal Activity Adjudicator? No MIGRATION.0301 632107 Information not available 12/24/2022 What Was The Date Of Your Most Recent Tobacco Screening? 09/10/2023 [email or web address] Information not available 09/10/2023 Do You Have Any Pets? No MIGRATION.0301 215145 Information not available 12/24/2022 What Is Your Relationship Status? MIGRATION.0301 187588 Information not available 12/24/2022 Do You Use Your Seat Belt Or Car Seat Routinely? Yes MIGRATION.0301 034432 Information not available 12/24/2022 Do You Have Smoke And Carbon Monoxide Detectors In Your Home? Yes MIGRATION.0301 340332 Information not available 12/24/2022 Are You Passively Exposed To Smoke? No MIGRATION.0301 188145 Information not available 12/24/2022 Are There Any Smokers In Your House? No MIGRATION.0301 766307 Information not available 12/24/2022 What Types Of Sporting Activities Do You Participate In? None MIGRATION.0301 391340 Information not available 12/24/2022 Do You Use Sunscreen Routinely? No MIGRATION.0301 804520 Information not available 12/24/2022 Has Tobacco Cessation Counseling Been Provided? No Not Needed -pt Never Smoked MIGRATION.0301 915857 Information not available 12/24/2022 Have You Recently Traveled Abroad? No MIGRATION.0301 600944 Information not available 12/24/2022 Do You Have Difficulty Walking Or Climbing Stairs? Yes MIGRATION.0301 853765 Information not available 12/24/2022 Do You Have Any Dietary Restrictions? No MIGRATION.0301 579832 Information not available 12/24/2022 Sex: Female Functional Status Question Answer Note LastModified by [employer] ion Details LastModified Time Do you use any illicit or recreational drugs? No MIGRATION.223066 8549 Information not available 12/24/2022 Do you or have you ever used any other forms of tobacco or nicotine? No MIGRATION.296185 5119 Information not available 12/24/2022 What is your level of alcohol consumption? None MIGRATION.808293 5828 Information not available 12/24/2022 Do you have transportation difficulties? No MIGRATION.918137 9417 Information not available 12/24/2022 Are you able to walk? YESWOREST MIGRATION.836756 3274 Information not available 12/24/2022 Do you have difficulty doing errands alone? No MIGRATION.819423 9151 Information not available 12/24/2022 Are you able to care for yourself independently? Yes MIGRATION.540086 6099 Information not available 12/24/2022 Do you have difficulty dressing, bathing, grooming, or toileting? No MIGRATION.969239 2274 Information not available 12/24/2022 What is your exercise level? Occasional stays active as much as she can MIGRATION.470959 1355 Information not available 12/24/2022 Mental Status Question Answer Note LastModified by Organizat ion Details LastModified Time Do you feel stressed (tense, restless, nervous, or anxious, or unable to sleep at night)? [id number] MIGRATION.98122757 26 Information not available 12/24/2022 Do you have difficulty concentrating, remembering or making decisions? No MIGRATION.26045018 26 Information not available 12/24/2022 Family History Relationship Description Onset Age of this Age Resolved Age Notes LastModified by Organization Details LastModified Time Son Hypertensive disorder MIGRATION.684 [id number] Not available 12/24/2022 06:11:09 Mother Malignant tumor of breast MIGRATION.350 [id number] Not available 12/24/2022 06:11:09 Sister Malignant tumor of breast MIGRATION.470 [id number] Not available 12/24/2022 06:11:09 Sister Parkinson's disease MIGRATION.097 [id number] Not available 12/24/2022 06:11:09 Medical History Condition Response NERVE DISEASE N BLINDNESS N RHEUMATIC FEVER N KIDNEY STONES N BLADDER PROBLEMS N MRSA N OTHER # 1 N [...] ARTERY DISEASE (CAD) N ADDICTION CONCERNS N ENDOMETRIOSIS N Impotence N USE OF BLOOD THINNERS N SKIN [...] GLAUCOMA N FOOT PROBLEM N DIVERTICULITIS N CHICKENPOX N SLEEP APNEA N INFECTIOUS DISEASE N HEART ARRHYTHMIA N PROSTATE N INSOMNIA Y HIGH CHOLESTEROL / HYPERLIPIDEMIA Y HYPERTHYROIDISM N EYE PROBLEMS N EDEMA N CHRONIC PAIN SYNDROME N HYPOTHYROIDISM N CAROTID BLOCKAGE N CONSTIPATION N BACK / NECK PROBLEMS Y HAVE YOU BEEN HOSPITALIZED OR SEEN IN TH E ER IN THE PAST YEAR ? N ATHEROSCLEROSIS N BREAST PROBLEMS N DIALYSIS N ECZEMA N OSTEOPOROSIS N ARTHRITIS N APPENDICITIS N DIABETES, TYPE N BAD TEETH N ENT N HEARTBURN / REFLUX N AUTISM SPECTRUM DISORDER (ASD) N HEPATITIS / LIVER DISEASE N GOUT N SLEEP DISORDER N ALZHEIMER'S DISEASE N Brain Problems N HERPES N DEMENTIA N HEADACHES/MIGRAINES N SEIZURES/EPILEPSY N VASCULAR DISEASE N PACEMAKER N Blood Disorder N DIZZINESS N HEART DISEASE/HEART PROBLEMS N KIDNEY DISEASE N MULTIPLE SCLEROSIS N CARDIAC ARRHYTHMIA N CANCER: SPECIFY Y ATRIAL FIBRILLATION N Gall Stones N PULMONARY EMBOLISM N AUTOIMMUNE DISEASE N Gynecological History Statement/Question Response Date of Last Pap Date of Last Mammogram 06/17/2021 Date of Last Colonoscopy 01/05/2007 Most Recent Bone Density 12/20/2014 Obstetrics History GPAL:G 4 P 4 0 0 4 Type Value Full Term 4 Living 4 Total 4 Immunizations Vaccine Type Date Status Note Provider Kieran padgett and Address Organization Details Recorded Time Pneumococcal conjugate PCV 13 3 completed Ruel Andrew MD [address] [place] [address], [facility] [address], [place], [address], [facility] [employer] 05/29/2023 08:18:14 Influenza, high-dose, quadrivalent, PF 3 completed Not Available [facility] 10/12/2023 01:29:48 COVID-19, mRNA, LNP-S, PF, 100 mcg/0.5mL dose or 50 mcg/0.25mL dose 3 completed Not Available [facility] 10/12/2023 01:29:48 RSV, recombinant, protein subunit RSVpreF, adjuvant reconstituted, 0.5 mL, PF 3 completed Not Available [facility] 10/12/2023 01:29:48 COVID-19, mRNA, LNP-S, PF, 100 mcg/0.5mL dose or 50 mcg/0.25mL dose 1 completed Not Available [facility] 10/12/2023 01:29:48 COVID-19, mRNA, LNP-S, PF, 100 mcg/0.5mL dose or 50 mcg/0.25mL dose 1 completed Not Available [facility] 10/12/2023 01:29:48 Influenza, high-dose, quadrivalent, PF 9 completed Not Available [facility] 10/12/2023 01:29:48 pneumococcal polysaccharide PPV23 8 completed Not Available [facility] 10/12/2023 01:29:48 Influenza, high-dose, trivalent, PF 8 completed Not Available [facility] 10/12/2023 01:29:48 COVID-19, mRNA, LNP-S, PF, 100 mcg/0.5mL dose or 50 mcg/0.25mL dose 2 completed Not Available [facility] 10/12/2023 01:29:48 zoster live 5 completed Not Available [facility] 10/12/2023 01:29:48 Influenza, high-dose, quadrivalent, PF 2 completed Not Available [facility] 10/12/2023 01:29:48 Influenza, high-dose, quadrivalent, PF 1 completed Not Available [facility] 10/12/2023 01:29:48 Influenza, high-dose, quadrivalent, PF 0 completed Not Available [facility] 10/12/2023 01:29:48 Influenza, high-dose, trivalent, PF 7 completed Not Available [facility] 10/12/2023 01:29:48 Influenza, high-dose, trivalent, PF 6 completed Not Available [facility] 10/12/2023 01:29:48 Influenza, split virus, quadrivalent, PF 5 completed Not Available [facility] 10/12/2023 01:29:48 Influenza, split virus, trivalent, PF 4 completed Not Available [facility] 10/12/2023 01:29:48 Influenza, split virus, trivalent, preservative 3 completed Not Available [facility] 10/12/2023 01:29:48 Past Encounters Encounter ID Performer Location Encounter Start Date Encounter Closed Date Diagnosis/Indication Diagnosis SNOMED-CT Code Diagnosis ICD10 Code Diagnosis Note [id number] Ruel Andrew MD [facility] Internal [facility] Ignacio robles [address] [facility] , [place] [address] 05/21/2021 00:00:00 05/21/2021 21:49:30 [id number] Ruel Andrew MD [facility] Internal Med [place] [address] [facility] [place] [address] 12/05/2021 00:00:00 12/28/2021 21:03:23 [id number] Ruel Andrew MD [facility] Internal [facility] [place] [address] [facility] [place] [address] 06/03/2022 00:00:00 06/08/2022 17:58:28 [id number] Ruel Andrew MD [facility] Internal Med [place] [address] [facility] [place] [address] 05/28/2023 10:53:18 05/28/2023 11:58:48 Benign essential hypertension 9605352 I10 Screening mammography 24 759759 Z12.31 Administra tion of pneumococcal vaccine 57524253 Z23 Anxiety 68847994 F41.9 Pure hypercholesterolemia 696215406 E78.00 Low back pain 269717931 M54.50 [id number] Ruel Andrew MD [facility] Internal Med [address] [facility], [address] [place] [address] 09/10/2023 15:15:46 09/10/2023 16:43:28 Low back pain 269170210 M54.50 Health Concerns Section Related Observation LastModified by Organization Detai ls LastModified Time None Recorded Concern Status LastModified by Organization Details LastModified Time None Recorded Advance Directives Directive N: Payers Insurance Date Sequence Insurance Name Policy Number Policy Mtz Covered Member ID Mtz Member ID Guarantor Name 09/10/2023 1 [employer] (MEDICARE REPLACEMENT/ ADVANTAGE - HMO) Irma Mccormick [id number] Irma Mccormick Notes Date Note Type Note Provider Name and Address Organization Details Recorded Time 05/28/2023 text/html Low back pain about the same. Hypertension no headache or dizziness. Anxiety high has been having pulmonary fibrosis. Ruel Andrew MD [address], [address], [place], [address], [facility] [employer] 05/29/2023 08:19:29 09/10/2023 text/html Back pain flared up she wants something to help get her through the holidays lots to do Ruel Andrew MD [address] [place] [address], [place] [address], [place], [address], [place] - [facility] 09/14/2023 22:18:11 OBGyn Episode No OBEpisode recorded.
--- OUTSIDE RECORDS SUMMARY | 2025-05-19 11:36 | XMS_ITS | Data Portability ---
[facility] Organization [facility] Address [address] [place] [address] Care Team Providers Care Ear Muff Assembler Name Role Phone RUEL ANDREW Primary Care Provider Assessment Encounter Date Assessment Date Assessment LastModified by Organization Details LastModified Time 06/06/2024 06/06/2024 EKG shows a sinus rhythm with PVCs questionable long QT no acute changes. Blood work Lexiscan echo Holter monitor follow few weeks [email or web address] Not available 06/19/2024 22:12:17 07/04/2024 07/04/2024 echo no regional wall motion abnormalities no further chest pain she does not want to pursue cardiac stress testing we will continue current therapy she will follow up in 3 months [email or web address] Not available 07/10/2024 17:33:57 10/03/2024 10/03/2024 continue current therapy we did discuss immunizations she will consider follow up in 4 months [email or web address] Not available 11/04/2024 21:09:44 02/06/2025 02/06/2025 Blood work has been ordered continue current therapy x-ray of the left knee rest ice and elevation when it bothers her she will see me in 4 months otherwise continue current therapy Tylenol 1000 mg b.i.d. PRN for knee pain when it flares up [email or web address] Not available 03/11/2025 17:54:51 Plan of Treatment Reminders Order Date Submit Date Provider Last Modified By Organization Details Last Modified Time Details Appointments ANY 15 2024 10:15A M Ruel Andrew MD Not available Not available Not available Lab CMP, serum or plasma 2024 025 [facility], [address], [place], [address], 02/06/2025 15:53:18 CBC w/ auto diff 2024 025 [email or web address], [address], [place], [address], 02/27/2025 10:00:22 lipid panel, serum 2024 025 [email or web address], [address], [place], [address], 02/27/2025 10:00:22 CMP, serum or plasma 2023 024 [facility], [address], [place], [address], 06/13/2024 21:27:05 CBC w/ auto diff 2023 024 [facility], [address], [place], [address], 06/13/2024 17:56:51 magnesium , serum or plasma [address], [address], [place], [address], 06/21/2024 12:13:05 lipid panel, serum 2023 024 [facility], [address] [place], [address], 06/20/2024 13:48:31 TSH, serum or plasma [address] (Lab), [address] [place] [address] [address], [place], [address], 06/21/2024 12:12:31 T4, free, serum 2023 024 [facility] (Lab), [facility] [address], [address], 06/14/2024 12:34:25 T3, free, serum or plasma 2023 024 [facility] (Lab), [facility] [address], [address], 06/14/2024 12:16:22 Referral None recorded. Procedures lexiscan cardiolit e stress test (PROC) 2023 024 penelope [facility], [address], [facility] [address], [place], [address], 07/05/2024 09:12:38 Surgeries None recorded. Imaging XR, knee 2024 025 [facility] (Imaging), [address] [place] [address], [address], 02/06/2025 13:51:26 US, echocardi ogram 2023 024 [facility], [address] [place] [address], [address], 06/13/2024 14:03:23 holter monitor - 2wk holter 2023 024 [email or web address], [address] [place] [address], [address], 07/25/2024 22:41:52 XR, chest 2023 024 [facility] (Imaging), [address] [place] [address], [address], 06/13/2024 17:34:16 electroca rdiogram 2023 024 [email or web address] In-Office Order, Internal Use Only DO Not Attach Compendium DO Not Attach Compendium, Do Not Delete/merge, [id number] 06/06/2024 17:17:21 Medication Orders None recorded. Patient TargetsNo targets recorded. Patient Instructions Encounter Date Encounter Id Patient Instructions Last Modified By Organization Details Last Modified Time 10/03/2024 [id number] A healthy lifestyle: care instructions [email or web address] Not available 10/03/2024 14:55:00 02/06/2025 [id number] A healthy lifestyle: care instructions Not available 02/06/2025 13:44:52 Reason for Referral None Reported. Results Created Date Observation Date Name Description Value Unit Range Abnormal Flag Note LastModifiedBy Organization Detail LastModifiedTime 06/06/20 elect rocar diogr am No observ ation record ed. LAIE In-Office Order Internal Use Only DO Not Attach Compendium DO Not Attach Compendium, Do Not Delete/merge, [id number] 06/06/2024 14:44:48 06/06/20 24 06/06/2024 elect rocar diogr am No observ ation record ed. [facility] In-Office Order Internal Use Only DO Not Attach Compendium DO Not Attach Compendium, Do Not Delete/merge, [id number] 06/06/2024 14:56:29 06/13/2006/13/2024 , [facility] ardio gram No observ ation record ed. [facility] [address], [place], [address], 06/17/2024 11:30:01 06/13/20 24 06/13/2024 XR, chest No observ ation record ed. [place] [id number], [place], [address], 06/17/2024 11:30:02 06/13/20 24 06/13/2024 XR, chest No observ ation record ed. [place] [id number] [facility] [address], [place], [address], 06/17/2024 11:30:03 07/25/20 24 06/13/2024 jan r monit or No observ ation record ed. [facility] [address], [place], [address], 07/25/2024 12:17:02 01/11/20 25 01/10/2025 XR, chest No observ ation record ed. [address], [place], [address], 01/11/2025 16:52:47 01/11/20 25 01/10/2025 XR, chest No observ ation record ed. [address], [place], [address], 01/11/2025 16:52:47 02/07/20 25 02/06/2025 XR, knee No observ ation record ed. [address], [place], [address], 02/10/2025 15:23:30 02/07/20 25 02/06/2025 XR, knee No observ ation record ed. [address], [place], [address], 02/10/2025 15:23:31 05/11/20 25 05/11/2025 XR, thora cic spine No observ ation record ed. [address], [place], [address], 05/17/2025 12:35:13 Result Notes None recorded. Problems Name Problem SNOMED Code Status Onset Date Resolution Date Notes Provider Name and Address Organization Details Recorded Time Atrophic vaginitis 69943084 Active Pj Herrmann null, [place] - [facility] 6 16:26:10 Menopausal syndrome 315723901 Active Pj Montez [place] [facility] 6 16:26:10 Osteopenia 499575074 Active Pj Montez [place] [facility] 6 16:26:10 Chronic constipatio n 448156163 Active Maggie Emery LPN null, [place] - [facility] 6 16:29:42 Essential hypertensio n 19795783 Active 2023 Ruel Andrew MD Attn: Accountin g,[address] [facility], [place], [address], [place] - [facility] 4 17:09:56 Anxiety 25834730 Active 2023 Ruel Andrew MD Attn: John dejesus,[address] [facility], [place], [address], [place] - [facility] 4 17:09:57 Insomnia 881263090 Active 2023 Ruel Andrew MD Attn: John dejesus,[address] [facility], [place], [address], [place] - [facility] 4 17:09:58 Dyslipidemi a 464635230 Active 2023 Ruel Andrew MD Attn: John dejesus,[address] [facility], [place], [address], [place] - [facility] 4 17:10:01 Chronic rhinitis 73703814 Active 2023 Ruel Andrew MD Attn: John dejesus,[address] [facility], [place], [address], [place] - [facility] 4 17:10:02 Palpitation s 34345365 Active 2023 Jose George [place] null, [place] [facility] 4 14:44:14 Chest pain 24576514 Active 2023 Jose George [place] [facility] 4 14:44:15 Pain of left knee joint 1189480853333 07 Active 2024 Jose George [place] null, [place] [facility] 5 12:34:43 Problem Notes None recorded. Procedures Surgical History Date Name Laterality Status Provider Name and Address Organization Details Recorded Time 3 Most Recent Mammogram completed Bella Price [place] - [facility] 02/13/2016 11:47:55 1 Date of Last Pap Smear completed Bella Price [place] - [facility] 11/28/2014 13:27:59 01/01/199 2 Breast Surgery completed Brianna Monaco MA [facility] 02/13/2016 12:04:32 Imaging Results None recorded. Procedure Notes None recorded. Medical Equipment None Reported. Allergies Allergen ID Allergen Name Allergen Category Reaction Reaction Severity Criticality Documentation Date Start Date Code Code System Note Provider Name and Address Organization Details Recorded Time Substance with sulfonami de structure and antibacte rial mechanism of action (substanc e) medicatio n hives severe Not available 11/28/2014 09939 8003 SNOMED Bella PriceMELONY null, [facility] 5 13:27:58 Medications Name Sig Start Date [...] Not Available diclofenac sodium 75 mg tablet,izabel villar release 02/11 completed Not Available Not Available [...] Updated DateTime 5 156.21 cm 27.8 kg/m2 56948.1 4 g 102 /min 99 % 99 % 126/62 mm[Hg] Itzel Navarrete MA [facility] 5 12:08:55 Date Recorded Body height Body mass index (BMI) Body weight Heart rate Oxygen saturation Oxygen saturation in Arterial blood by Pulse oximetry Systolic And Diastolic Provider Name and Address Organization Details Last Updated DateTime 5 156.21 cm 30 kg/m2 90461.1 7 g 105 /min 99 % 99 % 120/72 mm[Hg] Sandra Ibarra [facility] 5 16:12:27 Date Recorded Body height Body mass index (BMI) Body weight Heart rate Oxygen saturation Oxygen saturation in Arterial blood by Pulse oximetry Systolic And Diastolic Provider Name and Address Organization Details Last Updated DateTime 4 156.21 cm 27.2 kg/m2 15251.9 2 g 105 /min 96 % 96 % 104/80 mm[Hg] Mariya Simmons MA [facility] 4 12:23:47 Date Recorded Body height Body mass index (BMI) Body weight Heart rate Oxygen saturation Oxygen saturation in Arterial blood by Pulse oximetry Systolic And Diastolic Provider Name and Address Organization Details Last Updated DateTime 4 156.21 cm 27.9 kg/m2 23508.1 4 g 89 /min 99 % 99 % 126/78 mm[Hg] Mariya Simmons [facility] 4 12:08:54 Date Recorded Body height Body mass index (BMI) Body weight Heart rate Oxygen saturation Oxygen saturation in Arterial blood by Pulse oximetry Systolic And Diastolic Provider Name and Address Organization Details Last Updated DateTime 4 156.21 cm 27.8 kg/m2 77203.7 g 91 /min 97 % 97 % 118/70 mm[Hg] Sandra Ibarra [facility] 4 11:52:36 Social History Question Answer Notes LastModified by Organizat ion Details LastModified Time Tobacco Smoking Status Never Smoker Bella rPice, MELONY [facility], [place] - [facility] 11/28/2014 13:27:58 Do You Have [...] Many Years Have You Smoked Tobacco? 0 [email or web address] Information not available 02/13/2016 Sex: Female Functional [...] 11/28/2014 Are you able to care for yourself independently? Yes Information not available 02/29/2024 What is your exercise level? Occasional Information not available 11/28/2014 Mental Status Question Answer Note LastModified by Organization D etails LastModified Time Do you feel stressed (tense, restless, nervous, or anxious, or unable to sleep at night)? [id number] Information not available 02/29/2024 Family History Relationship [...] Influenza, high-dose, trivalent, PF 9 completed Itzel Rosalba, MA null, [...] SNOMED-CT Code Diagnosis ICD10 Code Diagnosis Note [id number] MD Aramis Schultz (COMMERCIAL FIELD INSPECTOR) [address] [place] [address] 11/28/2014 12:50:52 11/28/2014 14:25:42 Gynecologic examination 34565496 Atrophic vaginitis 59340415 Menopausal syndrome 188024441 Personal h istory of primary malignant neoplasm of breast 757721597 [id number] MD Aramis Schultz (COMMERCIAL FIELD INSPECTOR) [address] [place] [address] 02/13/2016 11:10:45 02/13/2016 16:31:00 Personal history of primary malignant neoplasm of breast 914450441 Z85.3 Chronic constipation 236 373736 K59.00 K59.09 [id number] MD Aramis Schultz (COMMERCIAL FIELD INSPECTOR) [address] [place] [address] 02/11/2017 11:40:15 02/12/2017 14:48:32 Screening mammography 25790313 Z12.31 personal hx of breast cancer right side Personal h istory of primary malignant neoplasm of breast 953868810 Z85.3 Irritable bowel syndrome 07658710 K58.9 Chronic id iopathic constipation 13728413 K59.04 [id number] Ruel Andrew MD [facility] [place] [address] [place] [address] 02/29/2024 14:01:25 02/29/2024 15:21:04 Essential hypertension 78555053 I10 Anxiety 56993116 F41.9 Insomnia 978672129 G47.0 0 Dyslipidemia 417963530 E 78.5 Chronic rhinitis 5342533 6 J31.0 [id number] Ruel Andrew MD [facility] [place] [address] [place] [address] 06/06/2024 11:50:23 06/06/2024 13:42:06 Palpitations 15200660 R00.2 Anxiety 18406067 F41.9 Chest pain 97592759 R07. 9 Essential hypertension 88155974 I10 [id number] Ruel Andrew MD [facility] [place] [address] [place] [address] 07/04/2024 11:14:58 07/04/2024 13:14:58 Body mass index 25-29 - overweight 049353689 Z68.25 27.9 BMI Essential hypertension 82707474 I10 Anxiety 59052838 F41.9 [id number] Ruel Andrew MD [facility] [place] [address] [place] [address] 10/03/2024 11:01:29 10/03/2024 13:29:46 Body mass index 25-29 - overweight 979291345 Z68.27 Overweight 939805306 E66 .3 Dyslipidemia 329866126 E 78.5 Essential hypertension 20563496 I10 Anxiety 01274985 F41.9 Insomnia 038443942 G47.0 0 [id number] Ruel Andrew MD [facility] [place] [address] [place] [address] 02/06/2025 11:54:02 02/06/2025 12:37:03 Body mass index 25-29 - overweight 587733134 Z68.27 Overweight 338132125 E66 .3 Pain of le ft knee joint 7951049701 10284 M25.562 Essential hypertension 85133008 I10 Palpitations 82557548 R0 0.2 Anxiety 57112436 F41.9 Dyslipidemia 721404994 E 78.5 Insomnia 296444565 G47.0 0 [id number] Ruel Andrew MD [facility] (Adult Med) [address] [place] [address] 05/10/2025 15:37:03 05/10/2025 16:52:37 Body mass index 30+ - obesity 607623838 Z68.30 Obese class I 9391447234 74570 E66.811 Thoracic back pain 78763 8004 M54.6 Health Concerns Section Related Observation LastModified by Organization Detai ls LastModified Time None Recorded Concern Status LastModified by Organization Details LastModified Time None Recorded Advance Directives Directive N: Payers Insurance Date Sequence Insurance Name Policy Number Policy Mtz Covered Member ID Mtz Member ID Guarantor Name 02/29/2024 SLIDING FEE SCHEDULE - DISCOUNT Fay Foutrolando 05/10/2025 1 [employer] (MEDICARE REPLACEMENT/A DVANTAGE - HMO) [id number] Fay Mccormick [id number] Fay Mccormick 05/10/2025 1 [facility] (MEDICARE REPLACEMENT HMO) [id number] Fay Mccormick [id number] Fay Mccormick 02/29/2024 1 *SELF PAY* divya Mccormick Notes Date Note Type Note Provider [...] MD Attn: [address]ing[address] , [place], [address], [facility] 06/19/2024 22:12:35 07/04/2024 text/html short interval follow-up no chest pain Ruel Andrew MD Attn: Accounting[address] [facility], [place], [address], [facility] 07/10/2024 17:34:42 10/03/2024 text/html insomnia doing fine on current medical regimen without side effects hypertension blood pressure well controlled anxiety chronic doing well on current medical regimen. Her rhinitis is doing good dyslipidemia taking the rosuvastatin there is no side effects of any of the medications Ruel Andrew MD Attn: Accounting[address] [facility], [place], [address], [facility] 11/04/2024 21:10:04 02/06/2025 text/html Follow up of [...] time and causes some pain that is [id number] Ruel Andrew MD Attn: Accounting[address] [facility], [place], [address], [facility] 03/11/2025 17:55:13 OBGyn Episode Ob Episode Information Episode Created Date Number of Fetuses Patient Bloodtype Patient rh Status Prepregnancy Weight lbs Domestic Partner Domestic Partner Phone Father Name Bisque Ware Dipper Status 02/12/20 17 1 CLOSED Fetus Data First Name Last Name Admitted to NICU Weight (g) Sex Living Outcome Pediatric Complications Fetus ID Race Codes Race Delivery Type M Full Term [id number] Vaginal Domenic Calculation Initial Domenic Date Initial [...] Domestic Partner Domestic Partner Phone Father Name Bisque Ware Dipper Status 02/12/20 17 1 CLOSED Fetus Data First Name Last Name Admitted to NICU Weight (g) Sex Living Outcome Pediatric Complications Fetus ID Race Codes Race Delivery Type M Full Term 41105 Vaginal Domenic Calculation Initial Domenic Date Initial [...] Domestic Partner Domestic Partner Phone Father Name Bisque Ware Dipper Status 02/12/20 17 1 CLOSED Fetus Data First Name Last Name Admitted to NICU Weight (g) Sex Living Outcome Pediatric Complications Fetus ID Race Codes Race Delivery Type M Full Term 98484 Vaginal Domenic Calculation Initial Domenic Date Initial [...] Domestic Partner Domestic Partner Phone Father Name Bisque Ware Dipper Status 02/12/20 17 1 CLOSED Fetus Data First Name Last Name Admitted to NICU Weight (g) Sex Living Outcome Pediatric Complications Fetus ID Race Codes Race Delivery Type F Full Term [id number] Vaginal Domenic Calculation Initial Domenic Date Initial [...]
== END 2025-05-19 11:33 | disposition home or self-care (01) ==
PROVIDERS: PCP Internal Medicine; Visit Provider Internal Medicine
DX: R07.9 Chest pain, unspecified (principal)
CPT/HCPCS: 71046

== ENCOUNTER 2025-05-24 09:43 | Outpatient (CLI) | payer MEDICARE, SELFPAY ==
--- NOTE | ~2025-05-24 | MR_ITS ---
MRI of the lumbar spine Clinical History: Cord compression Technique: Axial T2-weighted images, and sagittal T1-weighted, T2-weighted, and T2 fat-sat images wer e acquired. Findings: No acute fracture seen. Probable minimal chronic compression deformity of L1. There is 3 mm retrolisthesis of L1 over L2,, L2 over L3, and L3 over L4. No bone marrow signal abnormality seen. At L1-L2, there is mild disc bulge with moderate facet arthropathy. No central canal stenosis. There is mild left neural foraminal narrowing. Right neural foramen preserved. At L2-L3, there is mild disc bulge with mild facet hypertrophy. No spinal canal stenosis. There is mo derate left neural foraminal narrowing and minimal right neural foraminal narrowing. At L3-L4, there is disc bulge with severe facet arthropathy. There is mild central canal stenosis. Th ere is moderate to advanced left neural foraminal narrowing, and advanced right neural foraminal narr owing. At L4-L5, there is disc bulge with severe facet arthropathy. No mary central canal stenosis. There i s moderate right neural foraminal narrowing. Left neural foramen preserved. At L5-S1, there is minimal disc bulge with severe facet arthropathy. No central canal stenosis. There is moderate to severe right neural foraminal narrowing. Left neural foramen preserved. Paravertebral soft tissues are unremarkable. Impression: Moderate degenerative spondylosis overall, as detailed above. Multiple grade 1 retrolistheses, as above. Reviewed, dictated and finalized at [facility]. Impression: Moderate degenerative spondylosis overall, as detailed above. Multiple grade 1 retrolistheses, as above.
== END 2025-05-24 09:44 | disposition home or self-care (01) ==
LOC: GOSHIMG 09:43
PROVIDERS: PCP Internal Medicine; Visit Provider Internal Medicine
DX: G95.20 Unspecified cord compression (principal); M47.896 Other spondylosis, lumbar region
CPT/HCPCS: 72148

== ENCOUNTER 2025-08-18 09:57 | Outpatient (CLI) | payer MEDICARE, SELFPAY ==
--- NOTE | ~2025-08-18 | DEXA_ITS ---
Bone Density Report Name: IRMA RITCHIE Age: 85 Sex: Female Ethnicity: White Date of : 1940 Indication: postmenopausal; screening for osteoporosis; height loss; cancer; Referring Provider: Giorgio Nava Study: Bone densitometry was performed. Exam Date: August 18, 2025 Accession number: [id number] Bone Density: Region BMD T-score Z-score Classification AP Spine(L1-L4) 0.873 -1.6 1.2 Osteopenia Femoral Neck (Left) 0.580 -2.4 0.0 Osteopenia Total Hip (Left) 0.662 -2.3 0.0 Osteopenia Femoral Neck (Right) 0.559 -2.6 -0.2 Osteoporosis Total Hip (Right) 0.644 -2.4 -0.2 Osteopenia Total Hip Mean 0.653 -2.4 -0.1 Osteopenia World Health Organization criteria for BMD impression classify patients as: Normal (T-score at or above -1.0), Osteopenia (T-score between -1.0 and -2.5), or Osteoporosis (T-score at or below -2.5). 10-year Fracture Risk: FRAX not reported because: Some T-score for Spine Total or Hip Total or Femoral Neck at or below -2.5 Clinical Information Provided by Patient: Has used the following medications: Vitamin D, Calcium Has the following medical conditions: Cancer, breast cancer Patient maximum height was 63 Menopause Age: 53 No regular weight bearing exercise Does not regularly consume dairy products Onset of menses at age 14 Number of children 4 Impression: The patient has osteoporosis, based on the Right Femoral Neck T-score. Discussion: INCREASED RISK OF FRACTURE. BONE DENSITY IS UNDESIRABLY LOW AT ONE OR MORE SKELETAL SITES, CONSISTENT WITH POSTMENOPAUSAL OSTEOPOROSIS. This patient's lowest T-score meets the World Health Organization's (WHO) criteria for osteoporosis at one or more sites (T-score -2.5 or below). In untreated patients, the risk of osteoporotic fracture increases approximately two-fold for each 1.0 SD decrease in T-score. Low bone density is not the only risk factor for fracture; also consider factors such as patient's age, frailty or poor health, risk of falling, risk of injury, previous osteoporotic fracture, family history of osteoporosis, cigarette smoking, low body weight, etc. Not everyone with low bone mineral density has osteoporosis; osteomalacia and other metabolic bone disorders should also be considered. Patients who have osteoporosis should be evaluated for specific diseases and conditions (secondary causes) that may cause or contribute to bone loss. The [place] [employer] (AACE) and National Osteoporosis Foundation (NOF) recommend pharmacologic intervention for all postmenopausal women whose T-score is in this range. The patient should follow a healthful lifestyle (good nutrition with adequate calcium and vitamin D, and appropriate weight-bearing exercise). Follow-Up: Consider a repeat BMD and Vertebral Fracture Assessment (VFA) exam in 2 years or sooner if medically necessary, to reassess this patient's status. Reported by: SALAZAR on 08/18/2025 10:25:00 AM. Reviewed, dictated and finalized at location A.
== END 2025-08-18 09:58 | disposition home or self-care (01) ==
LOC: MICIMG 09:58
PROVIDERS: PCP Internal Medicine; Visit Provider Internal Medicine
DX: M85.89 Other specified disorders of bone density and structure, multiple sites (principal); M81.0 Age-related osteoporosis without current pathological fracture; Z78.0 Asymptomatic menopausal state
CPT/HCPCS: 77080

== ENCOUNTER 2025-09-04 12:14 | Outpatient (CLI) | payer MEDICARE, SELFPAY ==
[2025-09-04 13:16] LABS: Hematocrit 41.8 % (37.0-47.0); Hemoglobin 13.8 g/dL (12.0-15.0); Immature Granulocyte Percent A 0.1 % (0-0.5); Lymphocytes Absolute Auto 1.70 K/mm3 (0.9-3.2); Mean Corpuscular HGB Conc 33.0 g/dl (32-36); Mean Corpuscular Hemoglobin 31.3 pg (26-34); Mean Corpuscular Volume 94.8 fl (80-100); Nucleated Red Blood Cells Absolute Auto 0.000 K/mm3 (0.0-0.012); Nucleated Red Blood Cells Perc 0.0 % (0.0-0.2); Platelet Count Result 310 k/mm3 (150-375); Red Blood Count 4.41 M/mm3 (4.2-5.4); White Blood Count 7.9 K/mm3 (4.5-10.0)
[2025-09-04 13:36] LABS: Alanine Aminotransferase 21 U/L (6-35); Albumin Level 4.2 g/dL (3.5-5.1); Alkaline Phosphatase 91 U/L (38-126); Anion Gap 9 mmol/L (4-12); Aspartate Amino Transferase 32 U/L (14-36); Bilirubin,Total 0.5 mg/dL (0.2-1.3); Blood Urea Nitrogen 12 mg/dL (7-17); Calcium 8.9 mg/dL (8.4-10.2); Carbon Dioxide 26 mmol/L (22-30); Chloride 103 mmol/L (98-107); Cholesterol 144 mg/dL (0-200); Estimated Glomerular Filt Rate > 60; Glucose 103 mg/dL (65-110); HDL Direct 71 mg/dL; Potassium 4.5 mmol/L (3.4-5.0); Sodium 138 mmol/L (137-145); Total Protein 7.4 g/dL (6.3-8.2); Triglycerides 72 mg/dL (<150)
== END 2025-09-04 12:15 | disposition home or self-care (01) ==
LOC: ANHLAB 12:19
PROVIDERS: PCP Internal Medicine; Visit Provider Internal Medicine
DX: Z51.81 Encounter for therapeutic drug level monitoring (principal); Z79.891 Long term (current) use of opiate analgesic; I10 Essential (primary) hypertension
CPT/HCPCS: 36415; 80053; 80061; 85025